=== PATIENT | male | born 1935 | race Caucasian/White ===

== ENCOUNTER 2019-07-26 10:18 | Outpatient (RCR) | payer MEDICARE, SELFPAY ==
[2019-05-01 09:08] LABS: INR 1.6; Prothrombin Time 16.4 Seconds (9.64-11.0)
[2019-05-17 09:53] LABS: INR 2.1; Prothrombin Time 22.3 Seconds (9.64-11.0)
[2019-06-26 10:05] LABS: Prothrombin Time 20.6 Seconds (9.64-11.0)
[2019-07-26 10:38] LABS: INR 2.2; Prothrombin Time 22.1 Seconds (9.64-11.0)
== END 2019-07-30 23:59 | disposition home or self-care (01) ==
LOC: CHSLAB 10:18
DX: I48.20 Chronic atrial fibrillation, unspecified (principal)
CPT/HCPCS: 36415; 85610

== ENCOUNTER 2019-10-25 09:34 | Outpatient (RCR) | payer MEDICARE, SELFPAY ==
[2019-09-20 09:50] LABS: INR 2.1; Prothrombin Time 21.5 Seconds (9.64-11.0)
[2019-10-25 09:53] LABS: INR 1.9; Prothrombin Time 19.7 Seconds (9.64-11.0)
== END 2019-12-19 23:59 | disposition home or self-care (01) ==
LOC: CHSLAB 09:34
PROVIDERS: PCP Internal Medicine; Visit Provider Internal Medicine
DX: I48.20 Chronic atrial fibrillation, unspecified (principal)
CPT/HCPCS: 36415; 85610

== ENCOUNTER 2020-02-28 09:48 | Outpatient (RCR) | payer MEDICARE, SELFPAY ==
[2019-12-27 09:48] LABS: INR 1.7; Prothrombin Time 17.5 Seconds (9.64-11.0)
[2020-01-05 10:10] LABS: INR 1.9; Prothrombin Time 19.5 Seconds (9.64-11.0)
[2020-02-09 09:38] LABS: INR 2.2; Prothrombin Time 21.9 Seconds (9.64-11.0)
[2020-02-28 10:13] LABS: INR 2.1; Prothrombin Time 21.6 Seconds (9.64-11.0)
== END 2020-03-26 23:59 | disposition home or self-care (01) ==
LOC: CHSLAB 09:48
PROVIDERS: PCP Internal Medicine; Visit Provider Internal Medicine
DX: I48.11 Longstanding persistent atrial fibrillation (principal)
CPT/HCPCS: 36415; 85610

== ENCOUNTER 2020-05-01 14:39 | Emergency (ER) | payer MEDICARE, SELFPAY ==
[2020-05-01] VITALS (10 sets, daily range): BP systolic 119–149; BP diastolic 70–88; PULSE 60–78; RESP 16–20; TEMP 36.4–37.1; O2SAT 97–98
--- NOTE | ~2020-05-01 | CT_ITS ---
EXAMINATION: CT brain wo con DATE: 05/01/2020 16:49 INDICATION: Dizziness. TECHNIQUE: Computed tomography (CT) of the head was performed without intravenous contrast. The mA wa s adjusted according to patient size. Iterative reconstruction technique was employed. The dose-lengt h product was 605.33 mGy-cm. COMPARISON: None FINDINGS: There is an old lacunar infarct in left caudate nucleus. There is no intracranial hemorrhag e, acute infarction, or abnormal intracranial mass lesion. The ventricles are normal in size. There i s mild mucosal thickening in the paranasal sinuses. There are likely changes of ocular lens replaceme nt surgeries. The mastoid air cells are normal. IMPRESSION: 1. 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 Reviewed, dictated and finalized at location A. S AND SERVICE CHANGE LEADER
--- NOTE | ~2020-05-01 | XR_ITS ---
EXAMINATION: XR chest 2V DATE: 05/01/2020 15:27 INDICATION: Shortness of breath. TECHNIQUE: Frontal and lateral views of the chest were obtained. COMPARISON: Chest 2 views 05/09/2017 FINDINGS: A calcified left lung nodule is consistent with old granulomatous disease. No pleural effus ion or pneumothorax. The heart size is normal. There is a left chest wall pacer with leads in the rig ht atrium and right ventricle. IMPRESSION: 1. No acute cardiopulmonary disease. Reviewed, dictated and finalized at location A. ER HELPER
--- NOTE | 2020-05-01 14:48 | ED.WEAKNESS ---
HPI - Weakness General Chief complaint: Dizziness Stated complaint: sent from doctor for lightheaded, weakness Time Seen by Provider: 05/01/20 14:55 Source: patient Mode of arrival: ambulatory Limitations: no limitations History of Present Illness HPI Narrative: 84-year-old man with a history of atrial fibrillation status post pacemaker and hypertension comes in the emergency department today at the behest of his doctor after he has had intermittent lightheaded and weakness for the last month. His doctor told him to come to the emergency department after he had a systolic blood pressure of 91 at home. He states that he has had some intermittent shortness of breath but no chest pain, nausea, vomiting, diarrhea, black stools or bloody stools, hematuria, dysuria, headaches or body aches, cough or cold symptoms. MD Complaint: generalized weakness Onset (ago): week(s) (4) Duration: intermittent Location: generalized Migration: none Severity: moderate Relieving factors: none Exacerbating factors: exertion Associated symptoms: shortness of breath Related Data Home Medications Medication Instructions Recorded Confirmed Centrum Silver 1 tablet PO ONCE 05/01/20 05/01/20 Co Q-10 200 mg PO ONCE 05/01/20 05/01/20 Osteo Bi-Flex 1 tablet PO ONCE 05/01/20 05/01/20 aspirin 325 mg PO ONCE 05/01/20 05/01/20 atorvastatin 20 mg PO ONCE 05/01/20 05/01/20 metoprolol tartrate 25 mg PO BID 05/01/20 05/01/20 warfarin 4 mg PO ONCE 05/01/20 05/01/20 Allergies Allergy/AdvReac Type Severity Reaction Status Date / Time clindamycin Allergy Rash Verified 05/01/20 15:17 Penicillins Allergy Hives Verified 05/01/20 15:17 Tetanus Vaccines and Toxoid Allergy Abdominal Verified 05/01/20 15:17 Pain Review of Systems Constitutional: Constitutional: Reports as per HPI, Denies chills, Denies fever(s) and Reports weakness Eyes: Eyes: Reports change in vision ( blurry vision) and Denies photophobia ENT: Denies dysphagia, Denies nasal congestion and Denies sore throat Cardiovascular: Cardiovascular: Denies chest pain and Denies radiating jaw, neck or arm pain Respiratory: Respiratory: Denies cough, Reports dyspnea and Denies wheezing Gastrointestinal: Gastrointestinal: Denies abdominal pain, Denies diarrhea, Denies nausea and Denies vomiting Genitourinary: Genitourinary: Denies hematuria and Denies dysuria Musculoskeletal: Musculoskeletal: Denies back pain, Denies arthralgias and Denies joint swelling Integumentary/Breasts: Skin/Breast: Denies pruritus, Denies erythema and Denies rash Neurologic: Reports as per HPI, Denies vertigo and Denies syncope Comments: lightheadedness Hematologic/Lymphatic: Hematologic/Lymphatic: Denies easy bleeding and Reports easy bruising ( on warfarin) Allergic/Immunologic: Allergic/Immunologic: Denies lip swelling and Denies tongue swelling PMFSH Past Medical History Medical History Atrial fibrillation Glaucoma Hyperlipidemia Hypertension Surgical History Surgical History Adrenal tumor History of hernia surgery History of hip surgery bilateral Hx of cataract surgery Social History Social History Smoking status: Former smoker Alcohol intake: never Substance use: never Living arrangements: with family Exam Const: General: healthy appearing, no acute distress and alert Orientation/consciousness: patient oriented x3 Limitations: no limitations HENMT: Head: normal to inspection Ears: external ears normal, TM's normal bilaterally and EAC's normal General nose exam: Normal nares present Face and sinus: normal facial exam Mouth: Yes moist mucous membranes Throat: posterior oropharynx normal Eyes: Conjunctivae: conjunctivae normal Pupils: Equal, round and reactive pupils present EOM: EOMs intact bilaterally Resp: E
--- NOTE | 2020-05-01 15:00 | ECG_ITS ---
Measurements Intervals [place] Rate: 60 P: 211 CA: 237 QRS: 53 QRSD: 85 T: 63 QT: 402 QTc: 402 Interpretive Statements ELECTRONIC ATRIAL PACEMAKER ATYPICAL ECG Electronically Signed On 05-01-2020 15:56:28 SAAS ARCHITECT by Jovan Fierro D.O.
[2020-05-01 15:18] LABS: Basophils Absolute Auto 0.04 K/mm3 (0.00-0.10); Basophils Percent Auto 0.5 % (0.0-1.0); Eosinophils Absolute Auto 0.27 K/mm3 (0.02-0.50); Eosinophils Percent Auto 3.3 % (1.0-6.0); Hematocrit 41.7 % (37.0-46.0); Immature Granulocyte Absolute 0.03 K/mm3 (0.00-0.00); Immature Granulocyte Percent A 0.4 % (0.0-0.0); Lymphocytes Absolute Auto 2.04 K/mm3 (1.10-4.50); Lymphocytes Percent Auto 25.1 % (18.0-42.0); Mean Corpuscular HGB Conc 33.6 g/dL (32.0-36.0); Mean Corpuscular Hemoglobin 33.3 pg (27.0-31.0); Mean Platelet Volume 10.7 fl (8.7-11.0); Monocytes Absolute Auto 1.07 K/mm3 (0.10-0.90); Monocytes Percent Auto 13.2 % (2.0-11.0); Neutrophils Absolute Auto 4.7 K/mm3 (1.7-7.2); Neutrophils Percent Auto 57.5 % (50.0-70.0); Platelet Count Result 150 K/mm3 (150-420); Red Blood Count 4.21 M/mm3 (4.70-6.10); Red Cell Distribution Width 12.9 % (11.6-14.4); White Blood Count 8.1 K/mm3 (4.8-10.8)
[2020-05-01 15:33] LABS: Partial Thromboplastin Time 28.9 SEC (23.90-30.70); Prothrombin Time 21.4 Seconds (9.50-12.10)
[2020-05-01 15:40] LABS: D Dimer 0.68 mg/L (0.19-0.50)
[2020-05-01 15:41] LABS: Lactic Acid Reflex 1.9 mmol/L (0.4-2.0)
[2020-05-01 15:46] LABS: Alanine Aminotransferase 30 U/L (16-63); Albumin Level 3.6 g/dL (3.4-5.0); Alkaline Phosphatase 64 U/L (46-116); Anion Gap 10 mmol/L (8-16); Aspartate Amino Transferase 22 U/L (15-37); Bilirubin,Total 0.5 mg/dL (0.00-1.00); Blood Urea Nitrogen 27 mg/dL (7-18); Calcium 8.2 mg/dL (8.5-10.1); Carbon Dioxide 24 mmol/L (21-32); Chloride 107 mmol/L (98-108); Estimated CRCL calculation 27 ml/min; Estimated Glomerular Filt Rate 36; Glucose 120 mg/dL (70-99); Osmolality Calculated 298 mOsm/kg (285-295); Potassium 4.5 mmol/L (3.5-5.1); Sodium 141 mmol/L (136-145); Total Protein 6.8 g/dL (6.4-8.2); Troponin I 11.2 ng/L (0.00-60.4)
[2020-05-01 15:53] LABS: CRP < 0.5 mg/dL (0.0-0.9)
[2020-05-01 15:55] LABS: Thyroid Stimulating Hormone Reflex 1.11 u/IU/mL (0.36-3.74)
--- NOTE | 2020-05-01 15:59 | PC.NURSE ---
Pt made aware of need for urine sample, pt provided urinal at this time and instructed to provide sample when available, pt verbalizes understanding.
[2020-05-01] MEDS: SODIUM CHLORIDE 0.9% IV 1,000 ML 999 ML IV CONT (17:18)
[2020-05-01 17:25] LABS: SARS-CoV-2 Ag Negative (Negative)
--- NOTE | 2020-05-01 18:29 | PC.NURSE ---
1814 states can't void, refuse 2nd liter of fluids, wants to go home... notified 1828 with patient, IV fluids d/c
== END 2020-05-01 18:45 | disposition home or self-care (01) ==
PROVIDERS: Emergency Provider Emergency Medicine; PCP Internal Medicine
DX: R53.1 Weakness (principal); E86.0 Dehydration; N17.9 Acute kidney failure, unspecified; Z20.828 Contact with and (suspected) exposure to other viral communicable diseases; I48.91 Unspecified atrial fibrillation; E78.5 Hyperlipidemia, unspecified; I10 Essential (primary) hypertension; Z87.891 Personal history of nicotine dependence
CPT/HCPCS: 36415; 70450; 71046; 80053; 83605; 84443; 84484; 85025; 85380; 85610; 85730; 86140; 87040; 87426; 93005; 96360; 99284; J7030

== ENCOUNTER 2020-05-02 09:14 | Outpatient (CLI) | payer MEDICARE, SELFPAY ==
[2020-05-02 09:26] LABS: Add Urine Microscopic? NO; Appearance Urine Clear (Clear); Bilirubin Urine Negative (Negative); Blood Urine Negative (Negative); Color Urine Yellow (Yellow); Glucose Urine UA Negative (Negative); Ketones Urine Negative (Negative); Leukocyte Esterase Ur Negative (Negative); Nitrate Urine Negative (Negative); Protein Urine Negative (Negative); Specific Grav Ur 1.015 (1.010-1.020); Urobilinogen Urine 0.2 mg/dL (0.2-1.0)
== END 2020-05-02 09:15 | disposition home or self-care (01) ==
PROVIDERS: PCP Internal Medicine; Visit Provider Emergency Medicine
DX: R53.1 Weakness (principal)
CPT/HCPCS: 81003; 87077; 87086

== ENCOUNTER 2020-05-28 09:16 | Outpatient (RCR) | payer MEDICARE, SELFPAY ==
[2020-03-28 10:23] LABS: INR 2.3; Prothrombin Time 23.5 Seconds (9.64-11.0)
[2020-04-24 10:55] LABS: INR 2.1; Prothrombin Time 22.1 Seconds (9.50-12.10)
[2020-05-28 09:49] LABS: INR 1.9; Prothrombin Time 20.6 Seconds (9.50-12.10)
== END 2020-06-26 23:59 | disposition home or self-care (01) ==
LOC: CHSLAB 09:16
PROVIDERS: PCP Internal Medicine; Visit Provider Internal Medicine
DX: I48.11 Longstanding persistent atrial fibrillation (principal)
CPT/HCPCS: 36415; 85610

== ENCOUNTER 2020-08-27 09:32 | Outpatient (RCR) | payer MEDICARE, SELFPAY ==
[2020-06-27 10:44] LABS: INR 1.9; Prothrombin Time 19.9 Seconds (9.50-12.10)
[2020-07-26 09:39] LABS: INR 2.3; Prothrombin Time 23.4 Seconds (9.50-12.10)
[2020-08-27 09:57] LABS: INR 1.9; Prothrombin Time 19.9 Seconds (9.50-12.10)
== END 2020-09-25 23:59 | disposition home or self-care (01) ==
LOC: CHSLAB 09:32
PROVIDERS: PCP Internal Medicine; Visit Provider Internal Medicine
DX: I48.11 Longstanding persistent atrial fibrillation (principal)
CPT/HCPCS: 36415; 85610

== ENCOUNTER 2020-12-25 09:55 | Outpatient (RCR) | payer MEDICARE, SELFPAY ==
[2020-09-26 10:13] LABS: INR 1.9; Prothrombin Time 19.2 Seconds (9.50-12.10)
[2020-10-24 10:16] LABS: INR 1.9; Prothrombin Time 19.5 Seconds (9.50-12.10)
[2020-11-27 10:01] LABS: INR 2.2; Prothrombin Time 22.3 Seconds (9.50-12.10)
[2020-12-25 10:39] LABS: Prothrombin Time 20.8 Seconds (9.50-12.10)
== END 2020-12-25 23:59 | disposition home or self-care (01) ==
LOC: CHSLAB 09:55
PROVIDERS: PCP Internal Medicine; Visit Provider Internal Medicine
DX: I48.11 Longstanding persistent atrial fibrillation (principal)
CPT/HCPCS: 36415; 85610

== ENCOUNTER 2021-03-26 09:53 | Outpatient (RCR) | payer MEDICARE, SELFPAY ==
[2021-01-23 10:01] LABS: Prothrombin Time 20.6 Seconds (9.50-12.10)
[2021-02-26 10:01] LABS: INR 1.7; Prothrombin Time 17.9 Seconds (9.50-12.10)
[2021-03-26 10:18] LABS: INR 2.5; Prothrombin Time 25.3 Seconds (9.50-12.10)
== END 2021-04-23 23:59 | disposition home or self-care (01) ==
LOC: CHSLAB 09:53
PROVIDERS: PCP Internal Medicine; Visit Provider Internal Medicine
DX: I48.11 Longstanding persistent atrial fibrillation (principal)
CPT/HCPCS: 36415; 85610

== ENCOUNTER 2021-07-23 10:50 | Outpatient (RCR) | payer MEDICARE, SELFPAY ==
[2021-04-29 10:34] LABS: INR 2.1; Prothrombin Time 21.4 Seconds (9.50-12.10)
[2021-05-28 10:51] LABS: INR 2.2; Prothrombin Time 22.4 Seconds (9.50-12.10)
[2021-06-25 10:38] LABS: INR 2.3; Prothrombin Time 23.4 Seconds (9.50-12.10)
[2021-07-23 11:14] LABS: INR 2.1; Prothrombin Time 21.4 Seconds (9.50-12.10)
== END 2021-07-28 23:59 | disposition home or self-care (01) ==
LOC: CHSLAB 10:50
PROVIDERS: PCP Internal Medicine
DX: I48.11 Longstanding persistent atrial fibrillation (principal)
CPT/HCPCS: 36415; 85610

== ENCOUNTER 2021-11-26 09:04 | Outpatient (RCR) | payer MEDICARE, SELFPAY ==
[2021-08-28 10:23] LABS: Prothrombin Time 20.4 Seconds (9.50-12.10)
[2021-09-24 10:09] LABS: INR 2.1; Prothrombin Time 21.3 Seconds (9.50-12.10)
[2021-10-22 09:11] LABS: INR 2.3; Prothrombin Time 23.5 Seconds (9.50-12.10)
[2021-11-26 09:38] LABS: INR 1.8; Prothrombin Time 18.8 Seconds (9.50-12.10)
== END 2021-11-26 23:59 | disposition home or self-care (01) ==
LOC: CHSLAB 09:04
PROVIDERS: PCP Internal Medicine
DX: I48.11 Longstanding persistent atrial fibrillation (principal)
CPT/HCPCS: 36415; 85610

== ENCOUNTER 2022-01-28 11:22 | Outpatient (RCR) | payer MEDICARE, SELFPAY ==
[2021-12-24 09:43] LABS: Prothrombin Time 20.7 Seconds (9.50-12.10)
[2022-01-28 11:58] LABS: INR 1.9; Prothrombin Time 19.3 Seconds (9.50-12.10)
== END 2022-03-24 23:59 | disposition home or self-care (01) ==
LOC: CHSLAB 11:22
PROVIDERS: PCP Family Medicine
DX: I48.11 Longstanding persistent atrial fibrillation (principal)
CPT/HCPCS: 36415; 85610

== ENCOUNTER 2022-02-25 10:36 | Outpatient (CLI) | payer MEDICARE, SELFPAY ==
[2022-02-25 11:03] LABS: Prothrombin Time 20.9 Seconds (9.50-12.10)
== END 2022-02-25 10:37 | disposition home or self-care (01) ==
LOC: CHSLAB 10:41
PROVIDERS: PCP Internal Medicine
DX: I48.11 Longstanding persistent atrial fibrillation (principal)
CPT/HCPCS: 36415; 85610

== ENCOUNTER 2022-05-27 09:25 | Outpatient (RCR) | payer MEDICARE, SELFPAY ==
[2022-03-25 10:12] LABS: INR 1.9; Prothrombin Time 19.6 Seconds (9.50-12.10)
[2022-04-29 12:10] LABS: INR 2.1; Prothrombin Time 21.8 Seconds (9.50-12.10)
[2022-05-27 09:52] LABS: INR 2.1; Prothrombin Time 21.6 Seconds (9.50-12.10)
== END 2022-06-23 23:59 | disposition home or self-care (01) ==
LOC: CHSLAB 09:25
PROVIDERS: PCP Internal Medicine; Visit Provider Internal Medicine
DX: Z51.81 Encounter for therapeutic drug level monitoring (principal); Z79.01 Long term (current) use of anticoagulants
CPT/HCPCS: 36415; 85610

== ENCOUNTER 2022-08-18 20:24 | Emergency (ER) | payer MEDICARE, SELFPAY ==
--- NOTE | ~2022-08-18 | XR_ITS ---
EXAMINATION: [id number] Exam Date/Time: 08/18/2022 20:50 CDT HISTORY: STATUS POST TRIP/FALL INTO ARM REST; ANTEROLATERAL LEFT RIBS Comparison: 05/01/2020. RESULT: Lines, tubes, and devices: Left chest pacer with intact leads. Lungs and pleura: Calcified left midlung granuloma. Senescent changes. Cardiomediastinal silhouette: Stable. Other: No acute osseous or upper abdominal finding. Scoliosis. IMPRESSION: No acute cardiopulmonary process. No acute osseous finding in the left ribs. Reviewed, dictated and finalized at location K.
--- NOTE | 2022-08-18 20:31 | ED.GENADULT ---
HPI - General Adult General Chief complaint: Extremity Injury, Upper Stated complaint: Fall Rib Injury Time Seen by Provider: 08/18/22 20:28 History of Present Illness HPI narrative: 86-year-old white male fell against her iron toni complains of left rib pain. This occurred just prior to admission. Complains of left rib pain without shortness of breath or chest pain it is worse when he takes a deep breath or coughs but does not really have a cough. Denies any other injury. Denies any nausea vomiting fever neck pain weakness paresthesias back pain abdominal pain or any other complaints. He rates his pain as a 9 or 10. Related Data Home Medications Medication Instructions Recorded Confirmed Centrum Silver 1 tablet PO ONCE 05/01/20 08/18/22 Co Q-10 200 mg PO ONCE 05/01/20 08/18/22 Osteo Bi-Flex 1 tablet PO ONCE 05/01/20 08/18/22 aspirin 325 mg PO ONCE 05/01/20 08/18/22 atorvastatin 20 mg tablet 20 mg PO ONCE 05/01/20 08/18/22 metoprolol tartrate 50 mg tablet 25 mg PO BID 05/01/20 08/18/22 warfarin 4 mg tablet 4 mg PO ONCE 05/01/20 08/18/22 latanoprost 0.005 % eye drops 1 drp LEFT EYE DAILY 08/18/22 08/18/22 Allergies Allergy/AdvReac Type Severity Reaction Status Date / Time clindamycin Allergy Rash Verified 05/01/20 15:17 Penicillins Allergy Hives Verified 05/01/20 15:17 Tetanus Vaccines and Toxoid Allergy Abdominal Verified 05/01/20 15:17 Pain Review of Systems Constitutional: Constitutional: Reports no additional constitutional complaints Eyes: Eyes: Reports no additional eye complaints ENT: Reports system reviewed and no additional complaints, except as documented Cardiovascular: Cardiovascular: Reports as per HPI and Reports chest pain Respiratory: Respiratory: Reports as per HPI, Reports no additional respiratory complaints, Denies cough, Denies dyspnea and Denies wheezing Gastrointestinal: Gastrointestinal: Reports no additional gastrointestinal complaints Genitourinary: Genitourinary: Reports no additional male genitourinary complaints Musculoskeletal: Musculoskeletal: Reports no additional musculoskeletal complaints Integumentary/Breasts: Skin/Breast: Reports system reviewed and no additional complaints, except as docu Neurologic: Reports system reviewed and no additional complaints, except as documented [facility] Past Medical History Medical History Atrial fibrillation Glaucoma Hyperlipidemia Hypertension Surgical History Surgical History Adrenal tumor History of hernia surgery History of hip surgery bilateral Hx of cataract surgery Social History Social History Smoking status: Former smoker Alcohol intake: never Substance use: never Living arrangements: with family Exam Narrative: White male With mild distress.? Head normocephalic, atraumatic.? Eyes conjunctiva pink sclera nonicteric.? Extraocular movements are intact.? Ears externally normal.? Oropharynx is clear with moist mucous membranes without exudates.? Neck is supple nontender no lymphadenopathy. ?Back is nontender.? Lungs are clear.? Heart is regular rate and rhythm without murmurs gallops or rubs.? Chest wall is tender in the anterior lateral chest wall without crepitation. There is no chest pain with sternal Anterior to posterior pressure and lateral pressure. Abdomen is soft and nontender no hepatosplenomegaly or masses no CVA tenderness no abdominal bruits. ?Extremities no cyanosis clubbing or edema. ?Skin is warm and dry without rashes or lesions.? Neurological patient is alert and oriented x4.? Motor and sensory grossly intact.? Gait is normal. Course Vital Signs Vital signs: Vital Signs Temperature 36.7 C 08/18/22 20:34 Pulse Rate 60 08/18/22 20:34 Respiratory Rate 18 08/18/22 20:34 Blood Pressure 167/81 H 08/18/22 20:34
[2022-08-18 20:34] VITALS: BP 167/81; PULSE 60; RESP 18; TEMP 36.7; O2SAT 98
[2022-08-18] MEDS: HYDROcodone/acetaminophen (*CRX) 5-325 MG TABLET 1 TAB PO (20:52)
[2022-08-18 22:02] VITALS: BP 133/84; PULSE 80; RESP 18; TEMP 36.6; O2SAT 97
== END 2022-08-18 22:04 | disposition home or self-care (01) ==
PROVIDERS: Emergency Provider Emergency Medicine; PCP Internal Medicine
DX: S20.219A Contusion of unspecified front wall of thorax, initial encounter (principal); Z79.82 Long term (current) use of aspirin; Z79.01 Long term (current) use of anticoagulants; I48.91 Unspecified atrial fibrillation; E78.5 Hyperlipidemia, unspecified; I10 Essential (primary) hypertension; Z87.891 Personal history of nicotine dependence; W18.39XA Other fall on same level, initial encounter
CPT/HCPCS: 71101; 99283; A9270

== ENCOUNTER 2022-09-25 09:41 | Outpatient (RCR) | payer MEDICARE, SELFPAY ==
[2022-06-30 10:02] LABS: INR 2.4; Prothrombin Time 24.3 Seconds (9.50-12.10)
[2022-07-28 09:50] LABS: INR 1.9; Prothrombin Time 19.6 Seconds (9.50-12.10)
[2022-08-26 09:48] LABS: INR 1.8; Prothrombin Time 19.1 Seconds (9.50-12.10)
[2022-09-25 10:15] LABS: Prothrombin Time 20.9 Seconds (9.50-12.10)
== END 2022-09-28 23:59 | disposition home or self-care (01) ==
LOC: CHSLAB 09:41
PROVIDERS: PCP Internal Medicine; Visit Provider Internal Medicine
DX: Z51.81 Encounter for therapeutic drug level monitoring (principal); Z79.01 Long term (current) use of anticoagulants
CPT/HCPCS: 36415; 85610

== ENCOUNTER 2023-01-14 09:33 | Outpatient (RCR) | payer MEDICARE, SELFPAY ==
[2022-10-28 10:01] LABS: INR 1.8; Prothrombin Time 19.1 Seconds (9.50-12.10)
[2022-11-25 10:17] LABS: INR 1.6; Prothrombin Time 16.9 Seconds (9.50-12.10)
[2022-12-02 09:31] LABS: INR 1.7; Prothrombin Time 18.2 Seconds (9.50-12.10)
[2022-12-24 10:33] LABS: INR 1.7
[2022-12-31 09:47] LABS: INR 1.6; Prothrombin Time 16.7 Seconds (9.50-12.10)
[2023-01-14 09:55] LABS: Prothrombin Time 30.3 Seconds (9.50-12.10)
== END 2023-01-26 23:59 | disposition home or self-care (01) ==
LOC: CHSLAB 09:33
PROVIDERS: PCP Internal Medicine; Visit Provider Internal Medicine
DX: Z51.81 Encounter for therapeutic drug level monitoring (principal); Z79.01 Long term (current) use of anticoagulants
CPT/HCPCS: 36415; 85610

== ENCOUNTER 2023-04-27 09:16 | Outpatient (RCR) | payer MEDICARE, SELFPAY ==
[2023-01-27 10:19] LABS: INR 2.5; Prothrombin Time 25.6 Seconds (9.50-12.10)
[2023-02-24 10:23] LABS: INR 3.3; Prothrombin Time 33.1 Seconds (9.50-12.10)
[2023-03-23 10:41] LABS: INR 3.5; Prothrombin Time 34.9 Seconds (9.50-12.10)
[2023-03-30 09:54] LABS: INR 3.6; Prothrombin Time 35.6 Seconds (9.50-12.10)
[2023-04-27 09:43] LABS: INR 2.4; Prothrombin Time 25.1 Seconds (9.50-12.10)
== END 2023-04-27 23:59 | disposition home or self-care (01) ==
LOC: CHSLAB 09:16
PROVIDERS: PCP Internal Medicine; Visit Provider Internal Medicine
DX: Z51.81 Encounter for therapeutic drug level monitoring (principal); Z79.01 Long term (current) use of anticoagulants
CPT/HCPCS: 36415; 85610

== ENCOUNTER 2023-08-10 09:27 | Outpatient (RCR) | payer MEDICARE, SELFPAY ==
[2023-05-26 09:54] LABS: INR 2.2; Prothrombin Time 23.2 Seconds (9.50-12.10)
[2023-07-28 09:54] LABS: INR 3.4; Prothrombin Time 33.9 Seconds (9.50-12.10)
[2023-08-10 10:03] LABS: Prothrombin Time 30.4 Seconds (9.50-12.10)
== END 2023-08-24 23:59 | disposition home or self-care (01) ==
LOC: CHSLAB 09:27
PROVIDERS: PCP Internal Medicine; Visit Provider Internal Medicine
DX: I48.11 Longstanding persistent atrial fibrillation (principal)
CPT/HCPCS: 36415; 85610

== ENCOUNTER 2023-08-24 07:59 | Outpatient (RCR) | payer MEDICARE, SELFPAY ==
--- NOTE | 2023-08-24 08:27 | OPREHPOC ---
Outpatient Therapy Plan of Care This is a Multidisciplinary Plan of Care that may contain components documented by all disciplines (PT, OT, and ST.) PT Problem 1 PT Problem #1 Knowledge Deficit PT Goal 1 Goal 1. independent and compliant with HEP Target Visit 4 PT Problem 2 PT Problem #2 Pain PT Goal 1 Goal 1. decrease pain to 2/10 or less in the bilateral lower back/buttocks Target Visit 9 PT Problem 3 PT Problem #3 Impaired Range of Motion PT Goal 1 Goal 1. improve lumbar active side bending to 40 degrees Target Visit 9 PT Problem 4 PT Problem #4 Impaired Flexibility PT Goal 1 Goal 1. improve bilateral hamstrings flexibility to 20 degrees or less from 0 Target Visit 9 PT Problem 5 PT Problem #5 Impaired Functional Mobil PT Goal 1 Goal 1. LEFS to display less than 30% functional deficits 2. patient to tolerate standing for 1 hour or more outside of therapy 3. patient to perform exercises for 15 minutes without rest in skilled PT 4. patient to display improved posture of the upper and lower trunk to prevent worsening symptoms in the back in the future Target Visit 9
--- NOTE | 2023-08-24 08:27 | PTOPEVAL1 ---
Assessment and note entered by JT File, PT Evaluation Information Assessment Status Evaluation Diagnosis bilateral hip pain Onset 08/18/23 Subjective Information patient reports he is coming to therapy for pain in the bilateral hips. he reports sometimes it is both hips hurting, and other times one or the other will hurt. he reports the MD thinks he has nerves acting up in his back/buttock. he reports he has pain in the buttock mostly. he reports he has had both hips replaced back in 2010. he reports he has increased pain with walking. he reports he does not get any groin pain. he reports it does feel different than the pain he had prior to his hip replacements. he reports he has had xrays of the lower back. he reports he no new medications for the lower back. he reports he does not get any numbness/tingling/burning down the legs. Reported Pain Level Pain Score 3: Self Report Assessment PT Clinical Summary mr. nichols is a pleasant 87 yo man who presents to skilled PT services for evaluation and treatment of bilateral hip pain. he presents today with bilateral buttock pain, deficits in standing activities, and no groin pain. he like suffers from lumbar spondylosis. however, he does have a grinding/clunking in the R hip that may need further evaluation. today he displays core weakness, poor posture, tight hip muscles, decreased lumbar rom, and weakness in the proximal LE's. continued skilled PT is indicated to improve his objective/functional deficits and improve his quality of life/functional activity performance. Plan of Care Interventions Hot Pack/Cold Pack,Manual Therapy,Neuro Re- education,Patient/Caregiver Educati,Therapeutic Activities,Therapeutic Exercise PT Services Indicated Yes Treatment Frequency and 3x weekly for 9 visits Duration These treatments will address the objective and functional deficits as defined above. The patient will be advanced safely and appropriately in order for the patient to progress towards his/her prior level of function. Additional exercises will be introduced and as well as a comprehensive home exercise program upon discharge, if needed, ?to ensure carryover of functional gains achieved in the clinic. This treatment plan has been reviewed and agreement upon by the patient.
== END 2023-11-22 23:59 | disposition home or self-care (01) ==
LOC: CHSPT 07:59
PROVIDERS: Visit Provider Internal Medicine
DX: M25.551 Pain in right hip (principal); M25.552 Pain in left hip
CPT/HCPCS: 97110; 97161

== ENCOUNTER 2023-11-24 09:27 | Outpatient (RCR) | payer MEDICARE, SELFPAY ==
[2023-09-15 10:08] LABS: INR 2.4; Prothrombin Time 24.6 Seconds (9.50-12.1)
[2023-10-27 09:33] LABS: INR 2.7; Prothrombin Time 27.2 Seconds (9.50-12.1)
[2023-11-24 09:51] LABS: INR 2.6; Prothrombin Time 26.9 Seconds (9.50-12.1)
== END 2023-12-14 23:59 | disposition home or self-care (01) ==
LOC: CHSLAB 09:27
PROVIDERS: PCP Internal Medicine; Visit Provider Internal Medicine
DX: I48.11 Longstanding persistent atrial fibrillation (principal)
CPT/HCPCS: 36415; 85610

== ENCOUNTER 2024-02-16 10:27 | Outpatient (RCR) | payer MEDICARE, SELFPAY ==
[2023-12-29 10:42] LABS: INR 2.8; Prothrombin Time 28.2 Seconds (9.50-12.1)
[2024-01-27 14:53] LABS: INR 3.5; Prothrombin Time 35.1 Seconds (9.50-12.1)
[2024-02-11 10:27] LABS: INR 3.6; Prothrombin Time 35.6 Seconds (9.50-12.1)
[2024-02-16 11:02] LABS: INR 2.6; Prothrombin Time 26.6 Seconds (9.50-12.1)
== END 2024-03-28 23:59 | disposition home or self-care (01) ==
LOC: CHSLAB 10:27
PROVIDERS: PCP Internal Medicine; Visit Provider Internal Medicine
DX: Z51.81 Encounter for therapeutic drug level monitoring (principal); I48.11 Longstanding persistent atrial fibrillation
CPT/HCPCS: 36415; 85610

== ENCOUNTER 2024-09-06 10:07 | Outpatient (RCR) | payer MEDICARE, SELFPAY ==
[2024-06-28 10:19] LABS: Prothrombin Time 29.9 Seconds (9.50-12.1)
[2024-07-26 10:09] LABS: INR 4.1; Prothrombin Time 39.1 Seconds (9.50-12.1)
[2024-08-07 10:42] LABS: INR 3.1; Prothrombin Time 31.1 Seconds (9.50-12.1)
[2024-08-23 10:46] LABS: INR 3.9; Prothrombin Time 37.8 Seconds (9.50-12.1)
[2024-09-06 10:35] LABS: Prothrombin Time 29.5 Seconds (9.50-12.1)
== END 2024-09-26 23:59 | disposition home or self-care (01) ==
LOC: CHSLAB 10:07
PROVIDERS: PCP Internal Medicine; Visit Provider Internal Medicine
DX: I48.11 Longstanding persistent atrial fibrillation (principal)
CPT/HCPCS: 36415; 85610

== ENCOUNTER 2024-09-12 17:03 | Emergency (ER) | payer MEDICARE, SELFPAY ==
[2024-09-12 17:08] VITALS: BP 186/87; PULSE 60; RESP 18; TEMP 36.6; O2SAT 99
--- OUTSIDE RECORDS SUMMARY | 2024-09-12 17:09 | XMS_ITS | Encounter Summary ---
Author Organization [facility] Address [address] [place] [address] Phone Care Team Providers Care Dog Day Care Attendant Name Role Phone Blade Schaefer MD Primary Care Provider [phone] Amor Graham MD Unavailable [phone] Catia Martinez Unavailable [phone] Liban Mary MD Unavailable [phone] Reason for Visit * Reason Onset Date Comments Medication Refill Medication Refill 12/15/2019 Encounter Details Date Type Department Care Team (Late st Contact Info) Description 12/11/2019 Refill [facility] [address] [place] [address] Vicente Castaneda, RIGOBERTO Medication Refill; Medication Refill Social History Tobacco Use Types Packs/Day Years Used Date Smoking Tobacco: Never Smokeless Tobacco: Never Alcohol Use Standard Drinks/Week Comments Yes 5 (1 standard drink = 0.6 oz pur e alcohol) rare PHQ-2 Answer Date Recorded PHQ-2 Score 0 05/08/2019 Sex and Gender Information Value Date Recorded Sex Assigned at Male 01/11/2023 11:12 AM CDT Legal Sex Male 7:59 PM CDT Gender Identity Male 01/11/2023 11:12 AM CDT Sexual Orientation Not on file COVID-19 Exposure Response Date Recorded In the last month, have you been in contact with someone who was confirmed or suspected to have Coronavirus / COVID-19? No / Unsure 11/15/2019 8:53 AM CDT documented as of this encounter Miscellaneous Notes * Telephone Encounter - Blade Schaefer MD - 12/15/2019 7:57 AM CDT Refill request approved. * Telephone Encounter - Yany Sanchez - 12/14/2019 4:05 PM CDT JULIO CESAR 11/15/2019 CMP,CBC, FLP 11/15/2019 Quantity greater than originally prescribed, routing to PCP for approval. documented in this encounter Plan of Treatment Upcoming Encounters Date Type Department Care Team (Late st Contact Info) Description 12/28/2024 11:00 AM CDT Office Visit [facility] - [facility] - [place] [address] [place] [place] [address] Blade Schaefer MD [address] [place] [address] documented as of this encounter Visit Diagnoses Not on filedocumented in this encounter Additional Health Concerns Assessment Noted Time PHQ-9 Depression Total Score: 0 11/15/19 20 9:00 AM CDT documented as of this encounter Care Teams Dog Day Care Attendant Relationship Specialty Start Date End Date Blade Schaefer MD [address] [place] [address] PCP - General Internal Medicine 04/16/17 Amor Graham MD [address] [facility] [address] Consulting Physician Cardiovascular Disease - Cardiology 04/16/17 Catia Martinez PAC [address] [facility] [place] [address] Physician Air Control/Anti Air Warfare Officer Orthopaedic Surgery 12/09/20 Liban Mary MD [address] [place] [address] Consulting Physician Ophthalmology 06/11/21 12/26/23 Mary Prieto MD Consulting Physician Ophthalmology 05/06/17 Oxana Daniel OD Consulting Physician Optometry 12/27/23 documented as of this encounter
--- OUTSIDE RECORDS SUMMARY | 2024-09-12 17:09 | XMS_ITS | Encounter Summary ---
Author Organization [facility] Address [address] [place] [address] Phone Care Team Providers Care Helium Arc Welder Name Role Phone Blade Schaefer MD Primary Care Provider [phone] Amor Graham MD Unavailable [phone] Catia Martinez [facility] Unavailable [phone] Liban Mary MD Unavailable [phone] Reason for Visit * Reason Comments Medication Refill Encounter Details Date Type Department Care Team (Late st Contact Info) Description 06/18/2023 Refill [facility] - Primary [facility] - [facility] [address] [place] [address] Blade Schaefer MD [address] [place] [address] Medication Refill Social History Tobacco Use Types Packs/Day Years Used Date Smoking Tobacco: Never Smokeless Tobacco: Never Alcohol Use Standard Drinks/Week Comments Yes 5 (1 standard drink = 0.6 oz pur e alcohol) rare PHQ-2 Answer Date Recorded Total Score - Questions 1-9 0 05/31 Sex and Gender Information Value Date Recorded Sex Assigned at Male 01/11/2023 11:12 AM CDT Legal Sex Male 7:59 PM CDT Gender Identity Male 01/11/2023 11:12 AM CDT Sexual Orientation Not on file documented as of this encounter Miscellaneous Notes * Telephone Encounter - Diogo Galdamez, RN - 06/18/2023 8:08 AM CST The original prescription was reordered on 04/01/2023. dose changed ESTRA TEACHER documented in this encounter Plan of Treatment Upcoming Encounters Date Type Department Care Team (Late st Contact Info) Description 12/28/2024 11:00 AM CDT Office Visit [facility] - Primary [facility] - [facility] [address] [place] [address] Blade Schaefer MD [address] [place] [address] documented as of this encounter Visit Diagnoses Diagnosis Longstanding persistent atrial fibrillation (HCC) documented in this encounter Additional Health Concerns Assessment Noted Time PHQ-9 Depression Total Score: 0 06/16/19 24 9:52 AM ORCHESTRA TEACHER documented as of this encounter Care Teams Helium Arc Welder Relationship Specialty Start Date End Date Blade Schaefer MD [address] [place] [address] PCP - General Internal Medicine 04/16/17 Amor Graham MD [address] [facility] [place] [address] Consulting Physician Cardiovascular Disease - Cardiology 04/16/17 Catia Martinez PAC [address] [facility] [place] [address] Physician Potato Seed Cutter Orthopaedic Surgery 12/09/20 Liban Mary MD [address] [place] [address] Consulting Physician Ophthalmology 06/11/21 12/26/23 Mary Prieto MD Consulting Physician Ophthalmology 05/06/17 Oxana Daniel OD Consulting Physician Optometry 12/27/23 documented as of this encounter
--- OUTSIDE RECORDS SUMMARY | 2024-09-12 17:09 | XMS_ITS | Encounter Summary ---
Author Organization [facility] Address [address] [place] [address] Phone Care Team Providers Care Yarn Carrier Name Role Phone Blade Schaefer MD Primary Care Provider [phone] Amor Graham MD Unavailable [phone] Catia Martinez PAC Unavailable [phone] Liban Mary MD Unavailable [phone] Reason for Visit * Reason Comments Medication Refill Encounter Details Date Type Department Care Team (Late st Contact Info) Description 12/30/2022 Refill [facility] - Primary Care - [place] [address] [place] [address] Blade Schaefer MD [address] [place] [address] Medication Refill Social History Tobacco [...] Exposure Response Date Recorded In the last 10 days, have yo u been in contact with someone who was confirmed or suspected to have Coronavirus/COVID-19? No / Unsure 12/14/2022 10:17 AM CDT documented as of this encounter Miscellaneous Notes * Telephone Encounter - Blade Schaefer MD - 12/30/2022 2:39 PM CDT Warfarin refilled. Atorvastatin is not due for refill until the end of January. * Telephone Encounter - Nadine Dick RN - 12/30/2022 2:21 PM CDT Medication failed the protocol, provider to review and approve the medication order if appropriate. Requested Prescriptions Pending Prescriptions Disp Refills atorvastatin (LIPITOR) 20 MG Tablet [Pharmacy Med Name: ATORVASTATIN 20 MG TABLET] 90 Tablet 1 Sig: TAKE 1 TABLET BY MOUTH EVERY DAY Hmg CoA Reductase Inhibitors Protocol Passed - 12/30/2022 2:02 PM Passed - Visit with relevant provider in past 12 months or upcoming 90 days Recent Visits Date Type Provider Dept 12/14/22 Office Visit Blade Schaefer MD [facility] 06/15/22 Office Visit Blade Schaefer MD [facility] Showing recent visits within past 365 days and meeting all other requirements Future Appointments No visits were found meeting these conditions. Showing future appointments within next 90 days and meeting all other requirements Passed - Lipid panel in past 12 months LDL Date Value Ref Range Status 12/14/2022 86 5 - 130 mg/dL Final HDL CHOLESTEROL Date Value Ref Range Status 12/14/2022 41.4 >40 mg/dL Final CHOLESTEROL Date Value Ref Range Status 12/14/2022 148 <200 mg/dL Final TRIGLYCERIDES Date Value Ref Range Status 12/14/2022 105 <150 mg/dL Final VLDL Date Value Ref Range Status 12/14/2022 21 5 - 55 mg/dL Final CHOL/HDL RATIO Date Value Ref Range Status 12/14/2022 3.6 0.0 - 4.4 Final NON-HDL CHOLESTEROL Date Value Ref Range Status 12/14/2022 106.6 <130 mg/dL Final Passed - CMP in past 12 months SODIUM Date Value Ref Range Status 12/14/2022 140 136 - 144 mmol/L Final POTASSIUM Date Value Ref Range Status 12/14/2022 4.6 3.5 - 5.1 mmol/L Final CHLORIDE Date Value Ref Range Status 12/14/2022 105 100 - 110 mmol/L Final CO2, VENOUS Date Value Ref Range Status 12/14/2022 25 22 - 32 mmol/L Final ANION GAP Date Value Ref Range Status 12/14/2022 14.6 8.0 - 20.0 mmol/L Final GLUCOSE Date Value Ref Range Status 12/14/2022 89 70 - 99 mg/dL Final BUN Date Value Ref Range Status 12/14/2022 21 8 - 23 mg/dL Final CREATININE - POCT Date Value Ref Range Status 05/05/2021 1.3 0.6 - 1.3 mg/dL Final CREATININE, BLOOD Date Value Ref Range Status 12/14/2022 1.18 0.80 - 1.30 mg/dL Final BUN/CREATININE RATIO Date Value Ref Range Status 12/14/2022 18 12 - 20 ratio Final TOTAL PROTEIN Date Value Ref Range Status 06/15/2022 6.8 6.0 - 8.3 g/dL Final ALBUMIN Date Value Ref Range Status 06/15/2022 4.3 3.5 - 5.2 g/dL Final Comment: The colormetric methods used for the determination of Albumin may lead to falsely elevated test results in patients suffering from renal failure or insufficiency due to interference with other proteins. A/G RATIO Date Value Ref Range Status 06/15/2022 1.7 1.0 - 2.0 Final CALCIUM Date Value Ref Range Status 12/14/2022 8.9 8.7 - 10.5 mg/dL Final T BILI Date Value Ref Range Status 06/15/2022 0.6 <=1.2 mg/dL Final SGOT (AST) Date Value Ref Range Status 06/15/2022 25 <=40 U/L Final SGPT (ALT) Date Value Ref Range Status 06/15/2022 24 <=41 U/L Final ALKALINE PHOSPHATASE Date Value Ref Range Status 06/15/2022 77 40 - 130 U/L Final GFR, EST. NONAFRICAN Date Value Ref Range Status 12/14/2022 58 (L) >=60 Final GFR, EST. Date Value Ref Range Status 12/14/2022 >60 >=60 Final GFR, ESTIMATED Date Value Ref Range Status 12/14/2022 59 (L) >=60 Final Comment: Creatinine Clearance is the preferred criteria for selecting drug dose adjustments in renally impaired patients. The GFR is provided as additional pertinent clinical information. GFR is reported in mL/min/1.73 sq m. Calculation based on the Chronic Kidney Disease Epidemiology Collaboration (CKD- EPI) equation refitwithout adjustment for race. IS THE PATIENT REQUIRED TO BE FASTING? Date Value Ref Range Status 06/15/2022 No Final warfarin (COUMADIN) 4 MG Tablet [Pharmacy Med Name: WARFARIN SODIUM 4 MG TABLET] 90 Tablet 1 Sig: TAKE 1 TABLET BY MOUTH EVERY DAY Warfarin Protocol Failed - 12/30/2022 2:02 PM Failed - CBC on record in the past year WBC Date Value Ref Range Status 10/27/2016 8.11 4.00 - 12.00 10(3)/mcL Final RBC Date Value Ref Range Status 10/27/2016 4.49 4.40 - 5.80 10(6)/mcL Final HEMATOCRIT (HCT) Date Value Ref Range Status 10/27/2016 43.9 38.0 - 50.0 % Final HEMOGLOBIN (HGB) Date Value Ref Range Status 10/27/2016 15.1 13.0 - 16.5 g/dL Final MCV Date Value Ref Range Status 10/27/2016 97.8 (H) 82.0 - 96.0 fL Final MCH Date Value Ref Range Status 10/27/2016 33.6 (H) 26.0 - 32.0 pg Final MCHC Date Value Ref Range Status 10/27/2016 34.4 31.0 - 36.0 g/dL Final Failed - Patient does not have referral for nurse managed warfarin, please send to provider for approval Passed - Visit with relevant provider in past 12 months or upcoming 90 days Recent Visits Date Type Provider Dept 12/14/22 Office Visit Blade Schaefer MD [facility] 06/15/22 Office Visit Blade Schaefer MD [facility] Showing recent visits within past 365 days and meeting all other requirements Future Appointments No visits were found meeting these conditions. Showing future appointments within next 90 days and meeting all other requirements Passed - Display Most Recent Dose (if blank, no data is available, check Anticoagulation activity) Passed - INR on record in the past 6 weeks INR Date Value Ref Range Status 12/24/2022 1.70 (A) 0.9 - 1.1 Final documented in this encounter Plan of Treatment Upcoming Encounters Date Type Department Care Team (Late st Contact Info) Description 12/28/2024 11:00 AM CDT Office Visit [facility] - Primary Care - [place] [address] [place] [address] Blade Schaefer MD [address] [place] [address] documented as of this encounter Visit Diagnoses Not on filedocumented in this encounter Additional Health Concerns Assessment Noted Time PHQ-9 Depression Total Score: 0 06/11/19 21 8:00 AM ORTHOPEDIC CODER documented as of this encounter Care Teams Yarn Carrier Relationship Specialty Start Date End Date Blade Schaefer MD [address] [place] [address] PCP - General Internal Medicine 04/16/17 Amor Graham MD [address] [facility] [place] [address] Consulting Physician Cardiovascular Disease - Cardiology 04/16/17 Catia Martinez PAC [address] [facility] [place] [address] Physician Police Commanding Officer Orthopaedic Surgery 12/09/20 Liban Mary MD [address] [place] [address] Consulting Physician Ophthalmology 06/11/21 12/26/23 Mary Prieto MD Consulting Physician Ophthalmology 05/06/17 Oxana Daniel OD Consulting Physician Optometry 12/27/23 documented as of this encounter
--- OUTSIDE RECORDS SUMMARY | 2024-09-12 17:10 | XMS_ITS | Referral Summary ---
Author Organization [facility] Address [address] [place] [address] Care Team Providers Care Scout Leaser Name Role Phone Blade Schaefer MD Primary Care Provider + Encounters Date Type Department Care Team Description 09/05/2024 8:15 AM CDT Ancillary Procedure Secretary Multiple Cut Off Saw Operator [address] [place] [phone] SSS (sick sinus syndrome) (HCC); Atrial fibrillation, unspecified type (HCC); Presence of cardiac pacemaker from Last 3 Months Allergies Active Allergy Reactions Criticality Noted Date Comments Clindamycin Hives Medium 12/28/2016 Penicillins Tetanus Vaccines And Toxoid Medications omega-3 fatty acids-fish oil 340-1,000 mg capsule 0 0 Active lw-wnx-qbjbx acid-lutein (CENTRUM SILVER) 400-250 mcg tablet,chewabl e 0 0 Active aspirin 325 mg tablet take 1 tablet (325MG) by ORAL route every day 0 0 Active warfarin (COUMADIN) 4 mg tablet Take 1 tablet (4 mg total) by mouth daily Active coenzyme Q10 200 mg capsule Take 1 capsule (200 mg total) by mouth daily Active folic acid/multivit- min/lutein (CENTRUM SILVER ORAL) Take 1 tablet by mouth daily Active glucosamine-ch ondroitin 250-200 mg tablet daily Active latanoprost (XALATAN) 0.005 % ophthalmic solution 1 drop nightly Active atorvastatin (LIPITOR) 20 mg tablet Take 1 tablet (20 mg total) by mouth daily 4 Active lisinopriL (PRINIVIL,ZEST RIL) 10 mg tablet Take 1 tablet (10 mg total) by mouth daily Active metoprolol tartrate (LOPRESSOR) 50 mg immediate release tablet TAKE 1/2 TABLET BY MOUTH IN THE MORNING, THEN TAKE ONE TABLET BY MOUTH IN THE EVENING 135 tablet 3 5 Active metoprolol tartrate (LOPRESSOR) 50 mg immediate release tablet TAKE 1/2 TABLET BY MOUTH IN THE MORNING, THEN TAKE ONE TABLET BY MOUTH IN THE EVENING 135 tablet 3 4 09/08/19 25 Discontinued Active Problems Problem Noted Date Diagnosed Date Trochanteric bursitis of both hips 10/17/2020 Weakness 12/17/2016 Atrial fibrillation 12/17/2016 Presence of cardiac pacemaker 12/17/2016 Social History Tobacco Use Types Packs/Day Years Used Date Smoking Tobacco: Never Smokeless Tobacco: Never Tobacco Cessation:Counseling Given: Not Answered Alcohol Use Standard Drinks/Week Comments Yes 0 (1 standard drink = 0.6 oz pur e alcohol) Sex and Gender Information Value Date Recorded Sex Assigned at Not on file Legal Sex Male 12:36 AM COMPUTING TUTOR Gender Identity Not on file Sexual Orientation Not on file Last Filed Vital Signs Vital Sign Reading Time Taken Comments Blood Pressure 152/68 06/08/2024 10:46 AM COMPUTING TUTOR Pulse 70 06/08/2024 10:46 AM COMPUTING TUTOR Temperature 36.7 C (98.1 F) 04/17/2021 11:01 AM COMPUTING TUTOR Respiratory Rate 18 06/08/2024 10:46 AM COMPUTING TUTOR Oxygen Saturation 95% 04/30/2022 11:47 AM COMPUTING TUTOR Inhaled Oxygen Concentration - - Weight 77.1 kg (170 lb) 06/08/2024 10:46 AM COMPUTING TUTOR Height 180.3 cm (5' 11 ) 06/08/2024 10:46 AM COMPUTING TUTOR Body Mass Index 23.71 06/08/2024 10:46 AM COMPUTING TUTOR Plan of Treatment Not on file Procedures Procedure Name Priority Date/Time Associated Diagnosis Comments DEVICE CHECK - REMOTE Routine 09/05/2024 6:40 AM CDT SSS (sick sinus syndrome) (HCC) Atrial fibrillation, unspecified type (HCC) Presence of cardiac pacemaker from Last 3 Months Results * DEVICE CHECK - REMOTE (09/05/2024 6:40 AM CDT) Anatomical Region Laterality Modality Other Narrative 09/07/2024 3:07 PM CDT Images from the original result were not included. 09/05/2024 [place] quarterly remote device check NOTE The following shows snippets from the complete quarterly report. The complete report in its entirety is attached to this Result Text in Valve Liner Rubber. Presenting EGM Last in-office check 06/08/2024 6 month f/u office visit 12/14/2024 DC PPM, implanted 08/25/2016 Battery longevity = 2.3 yrs AT/AF burden < 1% Many AMS event episodes reported this monitoring quarter (18 with EGMs) longest 24 seconds- Warfarin Ap 97% RVp 25% Device Nurse Review and Recommendations below Reviewed By Karin Reyes RN BSN Review and Recommendations below (please forward an in-basket message to your MA if check requires attention)ATTESTATION I have reviewed the device interrogation report associated with this encounter in detail. I agree with the documentation recorded/scanned into the electronic medical record. Recommendations: Continue current device follow-up. Bibiana Graham MD Bibiana Graham MD [facility] [place] OCEDURES Final Result from Last 3 Months Insurance [facility] MEDICARE ADVANTAGE [facility] MEDIC[facility] ADVANTAGE [facility] MEDIC[facility] ADVANTAGE Care Teams Scout Leaser Relationship Specialty Start Date End Date Blade Schaefer MD PCP - General 06/19/19
--- OUTSIDE RECORDS SUMMARY | 2024-09-12 17:10 | XMS_ITS | Encounter Summary ---
Author Organization [facility] Address [address] [place] [address] Phone Care Team Providers Care Teacher Associate Name Role Phone Blade Schaefer MD Primary Care Provider [phone] Amor Graham MD Unavailable Catia Martinez PAC Unavailable [phone] Liban Mary MD Unavailable [phone] Reason for Visit * Reason Comments Medication Refill Encounter Details Date Type Department Care Team (Late st Contact Info) Description 06/11/2020 [facility] [address] [place] [address] Blade Schaefer MD [address] [place] [address] Medication Refill Social History Tobacco [...] have Coronavirus / COVID-19? No / Unsure 06/11/2020 8:37 AM VAULT CUSTODIAN documented as of this encounter Miscellaneous Notes * Telephone Encounter - Ramandeep Hermosillo RN - 06/11/2020 10:33 AM VAULT CUSTODIAN Medication approved and signed per standing order protocol. T CUSTODIAN documented in this encounter Plan of Treatment Upcoming Encounters Date Type Department Care Team (Late st Contact Info) Description 12/28/2024 11:00 AM CDT Office Visit [facility] - Primary Care - [place] [address] [place] [address] Blade Schaefer MD [address] [place] [address] documented as of this encounter Visit Diagnoses Not on filedocumented in this encounter Additional Health Concerns Assessment Noted Time PHQ-9 Depression Total Score: 0 06/11/19 21 8:00 AM VAULT CUSTODIAN documented as of this encounter Care Teams Teacher Associate Relationship Specialty Start Date End Date Blade Schaefer MD [address] [place] [address] PCP - General Internal Medicine 04/16/17 Amor Graham MD [address] [facility] [place] [address] Consulting Physician Cardiovascular Disease - Cardiology 04/16/17 Catia Martinez PAC [address] [facility] [place] [address] Physician Financial Analysis Advisor Orthopaedic Surgery 12/09/20 Liban Mary MD [address] [place] [address] Consulting Physician Ophthalmology 06/11/21 12/26/23 Mary Prieto MD Consulting Physician Ophthalmology 05/06/17 Oxana Daniel OD Consulting Physician Optometry 12/27/23 documented as of this encounter
--- OUTSIDE RECORDS SUMMARY | 2024-09-12 17:10 | XMS_ITS | Clinical Summary ---
Author Organization [facility] Address [address] [place] [address] Care Team Providers Care Bar Back Name Role Phone Blade Schaefer MD Primary Care Provider + Allergies Active Allergy Reactions Criticality Noted Date Comments Clindamycin Hives Medium 12/28/2016 Penicillins Tetanus Vaccines And Toxoid Medications omega-3 fatty acids-fish oil 340-1,000 mg capsule 0 0 Active mc-cto-qyhus acid-lutein (CENTRUM SILVER) 400-250 mcg tablet,chewabl e [...] fibrillation 12/17/2016 Presence of cardiac pacemaker 12/17/2016 Encounters Date Type Department Care Team Description 09/05/2024 8:15 AM CDT Ancillary Procedure [place] Drag Out Man [address] [place] [phone] SSS (sick sinus syndrome) (HCC); Atrial fibrillation, unspecified type (HCC); Presence of cardiac pacemaker from Last 3 Months Surgical History Surgery Date Site/Laterality Comments HERNIA REPAIR Hernia repair HIP ARTHROPLASTY Bilateral Hip replacement TUMOR REMOVAL EYE SURGERY INSERT / REPLACE / REMOVE PACEMAKER Medical History Medical History Date Comments Hx Other Medical 2000 tumot removed Hx Other Medical eyes 2010 Family History Medical History Relation Name Comments Heart attack Father Family history of myocardial infarction - (Added by TW Conv) Sudden Cardiac Father Family history of sudden cardiac (SCD) - (Added by TW Conv) Cancer Mother Family history of malignant neoplasm - (Added by TW Conv) Cancer Other 1 Family history of Cancer; COPD Other 2 Family history of COPD; Coronary artery disease Other 3 Fami ly history of Coronary artery disease; Cancer Sister Family history of malignant neoplasm - (Added by TW Conv) Relation Name Status Comments Father Mother Other 1 Other 2 Other 3 Sister Social History Tobacco Use Types Packs/Day Years Used Date Smoking Tobacco: Never Smokeless Tobacco: Never Tobacco Cessation:Counseling Given: Not Answered Alcohol Use Standard Drinks/Week Comments Yes 0 (1 standard drink = 0.6 oz pur e alcohol) Sex and Gender Information Value Date Recorded Sex Assigned at Not on file Legal Sex Male 12:36 AM TIP MENDER Gender Identity Not on file Sexual Orientation Not on file Obstetrics History Last Filed Vital Signs Vital Sign Reading Time Taken Comments Blood Pressure 152/68 06/08/2024 10:46 AM TIP MENDER Pulse 70 06/08/2024 10:46 AM TIP MENDER Temperature 36.7 C (98.1 F) 04/17/2021 11:01 AM TIP MENDER Respiratory Rate 18 06/08/2024 10:46 AM TIP MENDER Oxygen Saturation 95% 04/30/2022 11:47 AM TIP MENDER Inhaled Oxygen Concentration - - Weight 77.1 kg (170 lb) 06/08/2024 10:46 AM TIP MENDER Height 180.3 cm (5' 11 ) 06/08/2024 10:46 AM TIP MENDER Body Mass Index 23.71 06/08/2024 10:46 AM TIP MENDER Plan of Treatment Health Maintenance Due Date Last Done Comments Depression Screening 1934 Fall Risk Assessment 1934 DTaP/Tdap/Td Vaccine (1 - Tdap) 1945 Hepatitis B Screening 1952 Well Visit 65+ 10/19/1999 Covid-19 Vaccine (3 - 2023-2 5 season) 2024 07/23/2020, 07/02/2020 Pneumococcal vaccine 65+ Completed 017, 06/02/2016, 05/31/2003 Zoster Vaccine Completed 05/15/2021, 03/12/2021 Influenza Vaccine Completed 03/16/2024, , 03/09/2019, Additional history exists Procedures Procedure Name Priority Date/Time Associated Diagnosis [...] the original result were not included. 09/05/2024 [place] quarterly remote device check NOTE The following shows snippets from the complete quarterly report. The complete report in its entirety is attached to this Result Text in Health Physicist. Presenting EGM Last in-office check 06/08/2024 6 month f/u office visit 12/14/2024 DC PPM, implanted 08/25/2016 Battery longevity = 2.3 yrs AT/AF burden < 1% Many AMS event episodes reported this monitoring quarter (18 with EGMs) longest 24 seconds- Warfarin Ap 97% RVp 25% Device Nurse Review and Recommendations below Reviewed By CT Paul MD Review and Recommendations below (please forward an in-basket message to your MA if check requires attention)ATTESTATION I have reviewed the device interrogation report associated with this encounter in detail. I agree with the documentation recorded/scanned into the electronic medical record. Recommendations: Continue current device follow-up. Bibiana Graham MD Bibiana Graham MD [facility] [place] OCEDURES Final Result from Last 3 Months Insurance [place] [id number] UHC MEDICARE ADVANTAGE [facility] MEDICARE ADVANTAGE Care Teams Bar Back Relationship Specialty Start Date End Date Blade Schaefer MD PCP - General 06/19/19
--- OUTSIDE RECORDS SUMMARY | 2024-09-12 17:10 | XMS_ITS | Encounter Summary ---
Author Organization [facility] Address [address] [place] [address] Phone Care Team Providers Care Prepress Manager Name Role Phone Blade Schaefer MD Primary Care Provider [phone] Amor Graham MD Unavailable [phone] Catia Martinez [facility] Unavailable [phone] Liban Mary MD Unavailable [phone] Reason for Visit * Reason Comments Medication Refill Encounter Details Date Type Department Care Team (Late st Contact Info) Description 09/28/2023 Refill [facility] - Primary Care - [place] [address] [place] [address] Blade Schaefer MD [address] [place] [address] Medication Refill Social History Tobacco [...] Telephone Encounter - Blade Schaefer MD - 09/29/2023 9:16 AM CDT The patient takes naproxen, which he indicates works better than meloxicam. * Telephone Encounter - Nadine Dick RN - 09/29/2023 8:40 AM CDT Medication failed the protocol, provider to review and approve the medication order if appropriate. Requested Prescriptions Pending Prescriptions Disp Refills meloxicam (MOBIC) 15 MG Tablet [Pharmacy Med Name: MELOXICAM 15 MG TABLET] 30 Tablet 0 Sig: Take 1 Tablet by mouth daily for 30 days. Anti-inflamatory NSAIDs Protocol Failed - 09/28/2023 7:47 PM Failed - Active on medication list Failed - Normal serum creatinine in past 12 months CREATININE, BLOOD Date Value Ref Range Status 06/16/2023 1.39 (H) 0.70 - 1.30 mg/dL Final Failed - Not delegated, patient not between 1 and 65 years of age Failed - HGB greater than 10 or HCT greater than 30 in past 12 months HEMOGLOBIN (HGB) Date Value Ref Range Status 10/27/2016 15.1 13.0 - 16.5 g/dL Final HEMATOCRIT (HCT) Date Value Ref Range Status 10/27/2016 43.9 38.0 - 50.0 % Final Passed - Visit with relevant provider in past 12 months or upcoming 90 days Recent Visits Date Type Provider Dept 08/13/23 Office Visit Blade Schaefer MD [facility] 07/29/23 Office Visit Blade Schaefer MD [facility] 06/16/23 Office Visit Blaed Schaefer MD [facility] 01/12/23 Office Visit Blade Schaefer MD [facility] 12/14/22 Office Visit Blade Schaefer MD [facility] Showing recent visits within past 365 days and meeting all other requirements Future Appointments Date Type Provider Dept 12/27/23 Appointment Blade Schaefer MD [facility] Showing future appointments within next 90 days and meeting all other requirements Passed - No matching NSAID med order in past 45 days No matching medication orders between 08/15/2023 8:40 AM and 09/29/2023 8:40 AM Passed - AST less than 55 or ALT less than 90 in past 12 months SGOT (AST) Date Value Ref Range Status 06/16/2023 27 5 - 34 U/L Final SGPT (ALT) Date Value Ref Range Status 06/16/2023 21 0 - 55 U/L Final documented in this encounter Plan of Treatment Upcoming Encounters Date Type Department Care Team (Late st Contact Info) Description 12/28/2024 11:00 AM CDT Office Visit [facility] - Primary Care - [place] [address] [place] [address] Blade Schaefer MD [address] [place] [address] documented as of this encounter Visit Diagnoses Diagnosis Bilateral hip pain Pain in joint, pelvic region and thigh documented in this encounter Additional Health Concerns Assessment Noted Time PHQ-9 Depression Total Score: 0 06/16/19 24 9:52 AM SURVEILLANCE OPERATOR documented as of this encounter Care Teams Prepress Manager Relationship Specialty Start Date End Date Blade Schaefer MD [address] [place] [address] PCP - General Internal Medicine 04/16/17 Amor Graham MD [address] [facility] [place] [address] Consulting Physician Cardiovascular Disease - Cardiology 04/16/17 Catia Martinez PAC [address] [facility] [address] Physician Regulatory Affairs Director Orthopaedic Surgery 12/09/20 Liban Mary MD [address] [place] [address] Consulting Physician Ophthalmology 06/11/21 12/26/23 Mary Prieto MD Consulting Physician Ophthalmology 05/06/17 Oxana Daniel OD Consulting Physician Optometry 12/27/23 documented as of this encounter
--- OUTSIDE RECORDS SUMMARY | 2024-09-12 17:10 | XMS_ITS | Encounter Summary ---
Author Organization [facility] Address [address] [place] [address] Phone Care Team Providers Care Custom Feed Corn Operator Name Role Phone Blade Schaefer MD Primary Care Provider [phone] Amor Graham MD Unavailable [phone] Catia Martinez [facility] Unavailable [phone] Liban Mary MD Unavailable [phone] Reason for Visit * Reason Comments Medication Refill Encounter Details Date Type Department Care Team (Late st Contact Info) Description 08/20/2023 Refill [facility] - Primary Care - [place] [address] [place] [address] Blade Schaefer MD [address] [place] [place] [address] Medication Refill Social History Tobacco [...] Miscellaneous Notes * Telephone Encounter - Diogo Galdamez RN - 08/20/2023 8:09 AM CDT Medication(s) [facility] Medication Refill Standing Order for Pediatricand Adult Patients. Requested Prescriptions Pending Prescriptions Disp Refills atorvastatin (LIPITOR) 20 MG Tablet [Pharmacy Med Name: ATORVASTATIN 20 MG TABLET] 90 Tablet 1 Sig: TAKE 1 TABLET BY MOUTH EVERY DAY Hmg CoA Reductase Inhibitors Protocol Passed - 08/20/2023 1:10 AM Passed - Visit with relevant provider in past 12 months or upcoming 90 days Recent Visits Date Type Provider Dept 08/13/23 Office Visit Blade Schaefer MD [facility] 07/29/23 Office Visit Blade Schaefer MD [facility] 06/16/23 Office Visit Blade Schaefer MD [facility] 01/12/23 Office Visit Blade Schaefer MD [facility] 12/14/22 Office Visit Blade Schaefer MD [facility] Showing recent visits within past 365 days and meeting all other requirements Future Appointments No visits were found meeting these conditions. Showing future appointments within next 90 days and meeting all other requirements Passed - Lipid panel in past 12 months LDL Date Value Ref Range Status 06/16/2023 93 <130 mg/dL Final HDL CHOLESTEROL Date Value Ref Range Status 06/16/2023 37 (L) >40 mg/dL Final CHOLESTEROL Date Value Ref Range Status 06/16/2023 149 <200 mg/dL Final TRIGLYCERIDES Date Value Ref Range Status 06/16/2023 96 <150 mg/dL Final VLDL Date Value Ref Range Status 06/16/2023 19 10 - 50 mg/dL Final CHOL/HDL RATIO Date Value Ref Range Status 06/16/2023 4.0 0.0 - 4.4 Final NON-HDL CHOLESTEROL Date Value Ref Range Status 06/16/2023 112 <130 mg/dL Final Passed - CMP in past 12 months SODIUM Date Value Ref Range Status 06/16/2023 135 (L) 136 - 145 mmol/L Final POTASSIUM Date Value Ref Range Status 06/16/2023 5.0 3.5 - 5.1 mmol/L Final CHLORIDE Date Value Ref Range Status 06/16/2023 103 98 - 107 mmol/L Final CO2, VENOUS Date Value Ref Range Status 06/16/2023 25 22 - 30 mmol/L Final ANION GAP Date Value Ref Range Status 06/16/2023 12.0 <18.0 mmol/L Final GLUCOSE Date Value Ref Range Status 06/16/2023 91 70 - 99 mg/dL Final BUN Date Value Ref Range Status 06/16/2023 28 (H) 8 - 26 mg/dL Final CREATININE, BLOOD Date Value Ref Range Status 06/16/2023 1.39 (H) 0.70 - 1.30 mg/dL Final BUN/CREATININE RATIO Date Value Ref Range Status 06/16/2023 20 12 - 20 ratio Final TOTAL PROTEIN Date Value Ref Range Status 06/16/2023 6.8 6.3 - 8.2 g/dL Final ALBUMIN Date Value Ref Range Status 06/16/2023 3.9 3.5 - 5.0 g/dL Final A/G RATIO Date Value Ref Range Status 06/16/2023 1.3 1.0 - 2.2 Final CALCIUM Date Value Ref Range Status 06/16/2023 9.2 8.7 - 10.5 mg/dL Final T BILI Date Value Ref Range Status 06/16/2023 0.9 0.2 - 1.2 mg/dL Final SGOT (AST) Date Value Ref Range Status 06/16/2023 27 5 - 34 U/L Final SGPT (ALT) Date Value Ref Range Status 06/16/2023 21 0 - 55 U/L Final ALKALINE PHOSPHATASE Date Value Ref Range Status 06/16/2023 73 40 - 150 U/L Final GFR, EST. NONAFRICAN Date Value Ref Range Status 06/16/2023 48 (L) >=60 Final GFR, EST. Date Value Ref Range Status 06/16/2023 58 (L) >=60 Final GFR, ESTIMATED Date Value Ref Range Status 06/16/2023 49 (L) >=60 Final Comment: Creatinine Clearance is the preferred criteria for selecting drug dose adjustments in renally impaired patients. The GFR is provided as additional pertinent clinical information. GFR is reported in mL/min/1.73 sq m. Calculation based on the Chronic Kidney Disease Epidemiology Collaboration (CKD- EPI) equation refitwithout adjustment for race. IS THE PATIENT REQUIRED TO BE FASTING? 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 documented as of this encounter Care Teams Custom Feed Corn Operator Relationship Specialty Start Date End Date Blade Schaefer MD [address] [place] [address] PCP - General Internal Medicine 04/16/17 Amor Graham MD [address] [place] [address] Consulting Physician Cardiovascular Disease - Cardiology 04/16/17 Catia Martinez PAC [address] [address] Physician Yield Clerk Orthopaedic Surgery 12/09/20 Liban Mary MD [address] [place] [address] Consulting Physician Ophthalmology 06/11/21 12/26/23 Mray Prieto MD Consulting Physician Ophthalmology 05/06/17 Oxana Daniel OD Consulting Physician Optometry 12/27/23 documented as of this encounter
--- OUTSIDE RECORDS SUMMARY | 2024-09-12 17:10 | XMS_ITS | Encounter Summary ---
Author Organization [facility] Address [address] [place] [address] Phone Care Team Providers Care Water Quality Analyst Name Role Phone Blade Schaefer MD Primary Care Provider [phone] Amor Graham MD Unavailable [phone] Catia Martinez [facility] Unavailable [phone] Liban Mary MD Unavailable [phone] Reason for Visit * Reason Comments Medication Refill Encounter Details Date Type Department Care Team (Late st Contact Info) Description 09/09/2023 Refill [facility] - Primary Care - [place] [address] [place] [address] Blade Schaefer MD [address] [place] [address] Medication Refill Social History Tobacco [...] Telephone Encounter - Diogo Galdamez RN - 09/10/2023 8:35 AM CDT Patient taking Naproxen * Telephone Encounter - Diogo Galdamez RN - 09/10/2023 8:21 AM CDT Medication failed the protocol, provider to review and approve the medication order if appropriate. Requested Prescriptions Pending Prescriptions Disp Refills meloxicam (MOBIC) 15 MG Tablet [Pharmacy Med Name: MELOXICAM 15 MG TABLET] 30 Tablet 0 Sig: Take 1 Tablet by mouth daily for 30 days. Anti-inflamatory NSAIDs Protocol Failed - 09/09/2023 5:03 PM Failed - Active on medication list Failed - Normal serum creatinine in past 12 months CREATININE, BLOOD Date Value Ref Range Status 06/16/2023 1.39 (H) 0.70 - 1.30 mg/dL Final Failed - Not delegated, patient not between 1 and 65 years of age Failed - No matching NSAID med order in past 45 days Matching medication order placed on 07/29/2023 9:57 AM Order [id number]: meloxicam (MOBIC) 15 MG Tablet (For orders placed between 07/27/2023 8:21 AM and 09/10/2023 8:21 AM) Failed - HGB greater than 10 or [...] Dept 08/13/23 Office Visit Blade Schaefer MD [facility] 07/29/23 Office Visit Blade Schaefer MD [facility] 06/16/23 Office Visit Blade Schaefer MD [facility] 01/12/23 Office Visit Blade Schaefer MD [facility] 12/14/22 Office Visit Blade Schaefer MD [facility] Showing recent visits within past 365 days and meeting all other requirements Future Appointments No visits were found meeting these conditions. 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 documented as of this encounter Care Teams Water Quality Analyst Relationship Specialty Start Date End Date Blade Schaefer MD [address] [place] [address] PCP - General Internal Medicine 04/16/17 Amor Graham MD [address] [place] [address] Consulting Physician Cardiovascular Disease - Cardiology 04/16/17 Catia Martinez PAC [address] [place] [address] Physician Nurse Practitioner Home Assessments Orthopaedic Surgery 12/09/20 Liban Mary MD [address] [place] [address] Consulting Physician Ophthalmology 06/11/21 12/26/23 Mary Prieto MD Consulting Physician Ophthalmology 05/06/17 Oxana Daniel OD Consulting Physician Optometry 12/27/23 documented as of this encounter
--- OUTSIDE RECORDS SUMMARY | 2024-09-12 17:10 | XMS_ITS | Clinical Summary ---
Author Organization [facility] Address [address] [address] Phone Care Team Providers Care Administrative Assistant Name Role Phone Blade Schaefer MD Primary Care Provider [phone] Amor Graham MD Unavailable [phone] Catia Martinez Unavailable [phone] Allergies Active Allergy Reactions Criticality Noted Date Comments Clindamycin Hives 12/28/2016 Penicillins Unknown Tetanus Toxoids Unknown Told not to get a tetanus shot. Medications Multiple Vitamins-Minera ls (CENTRUM SILVER PO) Take 1 Tab by mouth daily. Active Glucosamine-Cho ndroitin (OSTEO BI-FLEX REGULAR STRENGTH PO) Take 1 Tab by mouth daily. Active aspirin 325 MG Tablet Take 325 mg by mouth daily. Active latanoprost (XALATAN) 0.005 % Solution Place 1 Drop in affected eye(s) nightly. IN LEFT EYE. Active Cod Liver Oil Capsule Take 1 Capsule by mouth 2 times daily. Active Garlic 1000 MG Capsule Take 1 Cap by mouth 2 times daily. Active Coenzyme Q10 (COQ10) 200 MG Capsule Take 1 Cap by mouth daily. Takes at noon. Active metoprolol tartrate (LOPRESSOR) 50 MG Tablet Take 50 mg by mouth 2 times daily. Take 1/2 tablet by mouth in the morning then take 1 tablet by mouth in the evening 021 Active [place]-3 Fatty Acids (FISH OIL PO) Take by mouth. Activ e lisinopril (PRINIVIL, ZESTRIL) 10 MG TabletIndicatio ns:Hypertension , essential Take 1 Tablet by mouth daily. 90 Tablet 3 024 Active DULoxetine (CYMBALTA) [address] ParticlesIndica tions:Chronic midline low back pain without sciatica Take 1 Capsule by mouth nightly. 90 Capsule 1 024 Active valACYclovir (VALTREX) 1 GM Tablet Take 1 Tablet by mouth 2 times daily. 20 Tablet 025 Active atorvastatin (LIPITOR) 20 MG Tablet TAKE 1 TABLET BY MOUTH EVERY DAY 90 Tablet 3 025 Active warfarin (COUMADIN) 3 MG TabletIndicatio ns:Atrial Fibrillation Take 1 Tablet by mouth every other day. Indications: Atrial Fibrillation 45 Tablet 1 025 Active warfarin (COUMADIN) 4 MG TabletIndicatio ns:Atrial Fibrillation Take one tab every other day- alternate with 3 mg tabs Indications: Atrial Fibrillation 90 Tablet 1 025 Active atorvastatin (LIPITOR) 20 MG Tablet TAKE 1 TABLET BY MOUTH EVERY DAY 90 Tablet 1 024 2024 Discontinued warfarin (COUMADIN) 4 MG TabletIndicatio ns:Longstanding persistent atrial fibrillation (HCC) Take 1 Tablet by mouth daily. 90 Tablet 1 024 2024 Discontinued(D ose adjustment) Active Problems Problem Noted Date Diagnosed Date Hypertensive retinopathy 08/23/2024 Herpes zoster without complication 06/26/2024 Hypertension, essential 10/13/2023 Pulmonary HTN 10/13/2023 Irritant contact dermatitis due to other agents 06/11/2021 Pacemaker 09/01/2016 Longstanding persistent atrial fibrillation 05/2016 Primary open angle glaucoma 11/25/2015 Mixed hyperlipidemia Arthritis Resolved Problems Problem Noted Date Diagnosed Date Resolved Date Branch retinal vein occlusion of left eye 08/23/2024 08/23/2024 Trochanteric bursitis of both hips 10/17/2020 06/15/2022 Screening for prostate cancer 04/19/2017 10/14/2017 Pre-syncope 11/17/2016 04/16/2017 Weakness 10/27/2016 04/16/2017 Chest pain 04/16/2017 Encounters Date Type Department Care Team Description 09/07/2024 Refill [facility] [address] [place] [address] Blade Schaefer MD Medication Refill 09/06/2024 [facility] [address] [place] [address] Blade Schaefer MD Anticoagulation Monitoring (INR) 08/23/2024 Telephone [facility] [address] [place] [address] Blade Schaefer MD Anticoagulation Monitoring (INR) 08/13/2024 Refill [facility] [place] [address] Blade Schaefer MD Medication Refill 08/10/2024 Telephone [facility] [place] [address] Blade Schaefer MD Anticoagulation Monitoring (INR) 07/26/2024 Telephone [facility] [place] [address] Blade Schaefer MD Results (INR) 06/28/2024 Telephone [facility] [place] [address] Blade Schaefer MD Anticoagulation Monitoring (INR) 06/26/2024 11:30 AM [employer] Office Visit [facility] [place] [address] Giselle Mathew, 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, 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 Mixed hyperlipidemia (Primary Dx); Pacemaker; Hypertension, essential; Longstanding persistent atrial fibrillation (HCC); Herpes zoster without complication Discharge Disposition: Discharged to home or Selfcare 06/26/2024 Travel 06/26/2024 Nurse Triage [facility] [address] [place] [address] Blade Schaefer MD Advice Only; Appointment; Shingles from Last 3 Months Immunizations Immunization Administration Dates Next Due Covid-19, Mrna, Lnp-s, Pf, 3 0 Mcg/0.3 Ml Dose (Pfizer) 07/23/2020,07/02/2020 Covid-19, Mrna, Lnp-s, Pf, 3 0 Mcg/0.3 Ml Dose, Kamran-sucrose (Pfizer camacho top) 03/16/2024 Covid-19, Mrna, Lnp-s, Pf, 5 0 Mcg/0.5 Ml Dose 03/24/2023 Influenza Vaccine greater than 3 yrs 03/09/2019, 03/15/2018,02/28/2013 Influenza, High-dose, Quadrivalent 03/12/2021 Influenza, Injectable, Quadrivalent 02/28/2020 Influenza, Quadrivalent, Adjuvanted 03/24/2023,1 Influenza, Trivalent, Adjuvanted, PF 03/11/2017 Influenza, high-dose, trivalent, PF 03/16/2024,1 ,03/28/2015 Pneumococcal Vaccine - 13 Valent 03/06/2017,07/2016 Pneumococcal Vaccine Adult - 23 Valent 4 Zoster Vaccine Recombinant 05/15/2021,03/12/2021 Family History Medical History Relation Name Comments Heart Disease Father Cancer Mother female Cancer Son colon Colon Cancer Son Relation Name Status Comments Father Mother Son Social History Tobacco Use Types Packs/Day Years Used Date Smoking Tobacco: Some Days Cigars Smokeless Tobacco: Never Tobacco Cessation:Ready to Q uit: Not Asked Comments:Smokes a cigar every once and a while Alcohol Use Standard Drinks/Week Comments Yes 5 (1 standard drink = 0.6 oz pur e alcohol) Rarely PHQ-2 Answer Date Recorded Total Score - Questions 1-9 0 05/31 Sex and Gender Information Value Date Recorded Sex Assigned at Male 01/11/2023 11:12 AM CDT Legal Sex Male 7:59 PM CDT Gender Identity Male 01/11/2023 11:12 AM CDT Sexual Orientation Not on file Last Filed Vital Signs Vital Sign Reading Time Taken Comments Blood Pressure 100/74 06/26/2024 11:47 AM [employer] Pulse 75 06/26/2024 11:47 AM [employer] Temperature 36.9 C (98.5 F) 06/26/2024 11:47 AM [employer] Respiratory Rate 14 06/26/2024 11:47 AM [employer] Oxygen Saturation 97% 06/26/2024 11:47 AM [employer] Inhaled Oxygen Concentration - - Weight 74.5 kg (164 lb 5 oz) 06/26/2024 11:47 AM [employer] Height 180.3 cm (5' 11 ) 06/26/2024 11:47 AM [employer] Body Mass Index 22.92 06/26/2024 11:47 AM [employer] Plan of Treatment Upcoming Encounters Date Type Department Care Team (Late st Contact Info) Description 12/28/2024 11:00 AM CDT Office Visit [facility] - Primary Care - [place] [address] [place] [address] Blade Schaefer MD [address] [place] [address] Health Maintenance Due Date Last Done Comments TdaP Immunization 1935 Respiratory Syncytial Virus (RSV) Immunization (Adult) (1 - 1-dose 75+ series) 2009 SARS-COV-2 Immunization ( season) 2024 03/16/2024, 03/24/2023, 03/05/2022, Additional history exists Pneumococcal Immunization (50+ years) Completed 03/06/2017, 06/02/2016, 05/31/2003 Pneumococcal Immunization Combined Discontinued 03/06/2017, 06/02/2016, 05/31/2003 Zoster Immunization Completed 05/15/2021, Hepatitis C Virus (HCV) Screening Completed 06/16/2023 Influenza Immunization Completed , 03/24/2023, 03/05/2022, Additional history exists Hepatitis B Immunization Aged Out No longer eligible based on patient's age to complete this topic Meningococcal Immunization (ACWY) Aged Out No longer eligible based on patient's age to complete this topic Rotavirus Immunization Aged Out No lo nger eligible based on patient's age to complete this topic Medical Devices Implanted Type Area Surgical Consultant Device Identifier Shelf Expiration Date Model / Serial / Lot Clip 360 Resolution 235cm - [id number] Implanted:Qty: 4 on 04/21/2019 by Aneesh Dawson DO at [facility] IMPLANT [employer] 10/02/2021 [id number] / [id number] / [id number] Procedures Procedure Name Priority Date/Time Associated Diagnosis Comments EXTERNAL INR (PT) Routine 09/06/2024 EXTERNAL INR (PT) Routine 08/23/2024 PROTIME (PT) (PROTHROMBIN TIME) 08/23/2024 12:00 AM CDT EXTERNAL INR (PT) Routine 08/07/2024 PROTIME (PT) (PROTHROMBIN TIME) 08/07/2024 12:00 AM CDT PROTIME (PT) (PROTHROMBIN TIME) 07/26/2024 12:00 AM [employer] EXTERNAL INR (PT) Routine 06/28/2024 PROTIME (PT) (PROTHROMBIN TIME) 06/28/2024 12:00 AM [employer] HEPATITIS C ANTIBODY Routine 06/16/2023 10:12 AM [employer] Encounter for hepatitis C screening test for low risk patient from Last 3 Months or Most Recently Relevant to Health Maintenance Results * (ABNORMAL) EXTERNAL INR (PT) (09/06/2024) Only the most recent of4 resultswithin the time period is included. INR 3.00(A) 0.90 - 1.10 Blood Historical Provider POINT OF CARE TESTING (MURRAY CURRAN) Final Result * PROTIME (PT) (PROTHROMBIN TIME) (08/23/2024 12:00 AM CDT) Only the most recent of4 resultswithin the time period is included. INR 3.9 SCAN 08/23/2024 us Provider Scan HEMATOLOGY ORDERABLES Final Resu lt SCAN * HEPATITIS C ANTIBODY (06/16/2023 10:12 AM [employer]) hepatitis C antibody 0.10 <1 S/[facility] [id number] 06/17/2023 2:15 AM [employer] [facility] Comment: Signal/Cutoff ratio < 0.79 is Nondetected Signal/Cutoff ratio 0.80-0.99 is Grayzone Signal/Cutoff ratio > 0.99 is Detected Supplemental assays are recommended if signal/cutoff ratio is >/=1.00. Signal/cutoff ratio result >/= 5.00 is 97% predictive of positivity for recombinant immunoblot assay (RIBA) and will be reported to the [place] Department of Public Health as required. Blood Venipuncture / Unknown 06/16/2023 10:12 AM [employer] 06/16/2023 10:12 AM [employer] us Blade Schaefer MD CHEMISTRY ORDERABLES Jinny l Result Performing Organization Address City/[facility]/ZIP Co de Phone Number [facility] [address] [place] [address], from Last 3 Months or Most Recently Relevant to Health Maintenance Insurance MEDICARE C [employer] [facility] Care Teams Administrative Assistant Relationship Specialty Start Date End Date Blade Schaefer MD [address] [place] [address] PCP - General Internal Medicine 04/16/17 Amor Graham MD [address] [place] [address] Consulting Physician Cardiovascular Disease - Cardiology 04/16/17 Catia Martinez PAC [address] [place] [address] [place] [address] Physician Veneer Stock Grader Orthopaedic Surgery 12/09/20 Mary Prieto MD Consulting Physician Ophthalmology 05/06/17 Oxana Daniel OD Consulting Physician Optometry 12/27/23
--- OUTSIDE RECORDS SUMMARY | 2024-09-12 17:10 | XMS_ITS | Continuity of Care Document ---
Author Organization [facility] Address [address] [place] [address] Phone Care Team Providers Care Coal Shooter Name Role Phone María RICHARDS, Oxana Unavailable Unavailable Allergies, Adverse Reactions, Alerts Substance Reaction Status Criticality clindamycin Active No Information penicillin G Active No Information Tetanus Vaccines and Toxoid Active No Information Medications Medication Instructions Dosage Effective Dates (start - stop) Status Comments LATANOPROST 0.005% EYE DROPS INSTILL 1 DROP INTO THE LEFT EYE ONCE DAILY IN THE EVENING - Active Centrum Silver Men 300 mcg-600 mcg-300 mcg tablet take one tablet daily - Active COD LIVER OIL (unknown strength) take one tablet daily Not Available - Active metoprolol succinate ER 50 mg tablet,extended release 24 hr take one tablet daily - Active Osteo Bi-Flex 250 mg-200 mg tablet take one tablet daily - Active aspirin 325 mg tablet take 1 tablet by oral route every day 325 MG - Active atorvastatin 20 mg tablet take 1 tablet by oral route every day 20 MG - Active warfarin 4 mg tablet take 1 tablet by oral route every day 4 MG - Active Procedures Procedure Date Visual Field Examination(s) No Charge Optomap Fundus Photos Office/outpatient Visit, Est No Charge Optomap Fundus Photos SCODI, Retina Office/outpatient Visit, Est No Charge Optomap Fundus Photos Enrike-25-2 024 SCODI, Posterior Segment Eye Exam & Treatment Visual Field Examination(s) SCODI, Posterior Segment Office/outpatient Visit, Est Visual Field Examination(s) Fundus Photography W/ Report Office/outpatient Visit, Est SCODI, Posterior Segment No Charge Optomap Fundus Photos 023 Eye Exam & Treatment Fundus Photography W/ Report Visual Field Examination(s) Office/outpatient Visit, Est No Charge Optomap Fundus Photos 022 SCODI, Posterior Segment Office/outpatient Visit, Est Fundus Photography W/ Report Visual Field Examination(s) Eye Exam & Treatment No Charge Optomap Fundus Photos 021 SCODI, Posterior Segment Office/outpatient Visit, Est Visual Field Examination(s) Fundus Photography W/ Report Eye Exam & Treatment SCODI, Posterior Segment Office/outpatient Visit, Est Fundus Photography W/ Report Visual Field Examination(s) Office/outpatient Visit, Est Post-op Follow-up Visit Visual Field Examination(s) SCODI, Posterior Segment No Charge Refraction No Charge GDX Retina After Cataract Laser Surgery Eye Exam & Treatment Office/outpatient Visit, Est No Charge Refraction Office/outpatient Visit, Est Office/outpatient Visit, Est Visual Field Examination(s) SCODI, Posterior Segment Eye Exam & Treatment Office/outpatient Visit, Est Office/outpatient Visit, Est Visual Field Examination(s) Corneal Pachymetry SCODI, Posterior Segment Office/outpatient Visit, Est Eye Exam & Treatment Eye Exam & Treatment Feb- Eye Exam & Treatment Eye Exam & Treatment Post-op Follow-up Visit Remove Cataract, Post Op Care 1 Remove Cataract, Insert Lens,Comanaged A Echo Exam Of Eye-Professional 1 Post-op Follow-up Visit Remove Cataract, Post Op Care 1 Remove Cataract, Insert Lens,Comanaged A Echo Exam Of Eye-Professional 1 Office/outpatient Visit, New Echo Exam Of Eye-Technical Fundus Photography W/ Report One Or More Rx Generated And Transmitted Advance Directives Directive Yes / No Effective Date File Name No Information Encounters Encounter Description Practice Location Reason(s) For Visit Diagnoses Date Provider Providers Copied on Encounter Office/outpa tient Visit, [facility], [address], [place], [place], [address], tel:[phone] SEC Dez RAYA Professional glaucoma, pressure check (chief complaint) Primary open-angle glaucoma, left eye, severe stagePrimary open-angle glaucoma, right eye, mild stagePseudoph emily of both eyesOther secondary cataract, right eyeDrusen (degenerative ) of macula, bilateralStab le branch retinal vein occlusion of left eyeHypertensi ve retinopathy of both eyes 5 María Daigle. [address], [address], [place], [place], [address], [place]. tel:[phone] Office/outpa tient Visit, [facility], [address], [place], [place], [address], tel:[phone] SEC Dez RAYA Professional glaucoma, pressure check (chief complaint) Primary open-angle glaucoma, left eye, severe stagePrimary open-angle glaucoma, right eye, mild stagePseudoph emily of both eyesOther secondary cataract, right eyeDrusen (degenerative ) of macula, bilateralStab le branch retinal vein occlusion of left eyeHypertensi ve retinopathy of both eyes Oct-2 4 María OD Oxana. [facility] [address], [address], [place], [place], [address], . tel:[phone] [facility], [address] [place] [address] [address], [place], [place], [address], [phone] SEC Dez RAYA Professional Complete Exam (chief complaint) Primary open-angle glaucoma, left eye, severe stagePrimary open-angle glaucoma, right eye, mild stagePseudoph emily of both eyesOther secondary cataract, right eyeVitreous degeneration, bilateralDrus en (degenerative ) of macula, bilateralStab le branch retinal vein occlusion of left eye Enrike- 4 María OD Oxana. [facility] [address], [address], [place], [place], [address], . tel:[phone] Office/outpa tient Visit, [facility], [address], [place], [place], [address], [phone] SEC Dez RAYA Professional glaucoma, pressure check (chief complaint) Primary open-angle glaucoma, left eye, severe stagePrimary open-angle glaucoma, right eye, mild stagePseudoph emily of both eyesOther secondary cataract, right eye Fe-0 4 María OD Oxana. [facility] [address], [address], [place], [place], [address], [place]. tel:[phone] Office/outpa tient Visit, [facility], [address] [place], [place] [address], [place], [place], [address], tel:[phone] SEC Dez RAYA Professional glaucoma, pressure check (chief complaint) Primary open-angle glaucoma, left eye, severe stagePrimary open-angle glaucoma, right eye, mild stagePseudoph emily of both eyesOther secondary cataract, right eye Oct- 3 María Daigle. [address] [place] [address], [address], [place], [place], [address], . tel:[phone] [facility], [address] [place] [address] [address], [place], [place], [address], [place] tel:[phone] Wurldtechjerri RAYA Professional No Information Sep-2 3 Usman Louie. [address], [facility] [place], [address], [place]. tel:[phone] [facility], [address] [place] [address] [address], [place], [place], [address], tel:[phone] [employer] Dez RAYA Professional 6 month Complete (chief complaint) Primary open-angle glaucoma, left eye, severe stagePrimary open-angle glaucoma, right eye, mild stagePseudoph emily of both eyes Apr- 3 Usman Louie. [address], [address], [place], [place], [address], [place]. tel:[phone] Office/outpa tient Visit, [facility], [address] [place] [address] [address], [place], [place], [address], [place] tel:[phone] [employer] Dez RAYA Professional glaucoma, pressure check (chief complaint) Primary open-angle glaucoma, left eye, severe stagePrimary open-angle glaucoma, right eye, mild stagePseudoph emily of both eyes Oct- 2 Usman Louie. [address], [place], [address], [place]. tel:[phone] Office/outpa tient Visit, [facility], [address] [place] [address] [address], [place], [place], [address], tel:[phone] SEC Material Wr[place] Professional 6 mo IOP check (chief complaint) Primary open-angle glaucoma, left eye, severe stagePrimary open-angle glaucoma, right eye, mild stagePseudoph emily of both eyes 2 María OD Oxana. [address] [place] [address], [address], [place], [place], [address], . tel:[phone] [facility], [address] [place] [address] [address], [place], [place], [address], tel:[phone] SEC Material [place] Professional 6 month Complete w/VF (chief complaint) Primary open-angle glaucoma, right eye, mild stagePrimary open-angle glaucoma, left eye, severe stagePseudoph emily of both eyesStable branch retinal vein occlusion of left eye 1 Usman Louie. [address], [facility] [place], [address], [place]. tel:[phone] Office/outpa tient Visit, Est [facility], [address] [place] [address] [address], [place], [place], [address], [phone] [employer] Professional 6 month IOP check (chief complaint) Primary open-angle glaucoma, right eye, mild stagePrimary open-angle glaucoma, left eye, severe stage Mar-0 1 Usman Louie. [address], [address], [place], [place], [address], [place]. tel:[phone] [facility], [address] [place] [address] [address], [place], [place], [address], [phone] SEC Material [place] Professional 6 month Complete w/VF (chief complaint) Primary open-angle glaucoma, right eye, mild stagePrimary open-angle glaucoma, left eye, severe stagePseudoph emily of both eyesOther secondary cataract, right eyeVitreous degeneration, right eyeRPE mottling of macula Sep-0 -202 0 Usman Louie. [address], [address], [place], [place], [address], [place]. tel:[phone] Office/outpa tient Visit, [facility], [address] [place] [address] [address], [place], [place], [address], [place] tel:[phone] SEC Dez RAYA Professional IOP Check (chief complaint) Primary open-angle glaucoma, left eye, severe stagePrimary open-angle glaucoma, right eye, mild stage Feb-1 0-202 0 Usman Louie. [address], [address], [place], [place], [address], [place]. tel:[phone] Office/outpa tient Visit, [facility], [address] [place] [address] [address], [place], [place], [address], [place] [phone] SEC Dez RAYA Professional glaucoma, pressure check (chief complaint) Primary open-angle glaucoma, left eye, severe stagePrimary open-angle glaucoma, right eye, mild stage Oct-0 2- 9 Starla OD Nile. [address] [place] [address], [address] [place] [address], [place], [address], [place]. tel:[phone] [facility], [address] [place] [address] [address], [place], [place], [address], [place] [phone] SEC Dez RAYA Professional Post-Op (chief complaint) Encounter for examination following surgery 0-201 9 Starla OD Nile. [facility], [address], [place], [address], [place]. tel:[phone] [facility], [address] [place] [address] [address], [place], [place], [address], [place] [phone] SEC Dez RAYA Professional Complete Exam (chief complaint) Primary open-angle glaucoma, right eye, mild stagePrimary open-angle glaucoma, left eye, severe stagePseudoph emily of both eyesOther secondary cataract, bilateral 9 Usman Loiue. [address] [facility], [address], [place], [place], [address], [place]. tel:[phone] [facility], [address] [place] [address] [address], [place], [place], [address], [place] tel:[phone] SEC [place] Professional No Information 9 Usman Louie. [address] [facility], [facility] A, [place], [place], [address], [place]. tel:[phone] Office/outpa tient Visit, [facility], [address] [place] [address] [address], [place], [place], [address], [place] tel:[phone] SEC Dez [place] Professional 3 mo IOP check (chief complaint) No Information 8 Ida Hernandez. [address] [place], [address], [place]. tel:[phone] Office/outpa tient Visit, [facility], [address], [place], [place], [address], [place] tel:[phone] SEC [place] Professional IOP Check (chief complaint) No Information 7 Ida Hernandez. [address] [place], [address], [place]. tel:[phone] Office/outpa tient Visit, [facility], [address] [place] [address] [address], [place], [place], [address], [place] tel:[phone] SEC [place] Professional 6 month Pressure check (chief complaint) No Information 7 Ida Hernandez. [address] [place], [address], [place]. tel:[phone] [facility], [address], [place], [place], [address], [place] tel:[phone] SEC [place] Professional Complete Exam (chief complaint) No Information 7 La Nena Carlin. [address], [address], [place], [place], [address], [place]. tel:[phone] Office/outpa tient Visit, [facility], [address] [place] [address] [address], [place], [place], [address], [place] tel:[phone] SEC Dez RAYA Professional 4 month IOP check. (chief complaint) No Information Feb-3 6 La Nena Carlni. [address], [address], [place], [place], [address], [place]. tel:[phone] Office/outpa tient Visit, [facility], [address] [place] [address] [address], [place], [place], [address], [place] tel:[phone] SEC Dez RAYA Professional 1 month IOP check (chief complaint) No Information 6 La Nena Carlin. [address], [address], [place], [place], [address], [place]. tel:[phone] Office/outpa tient Visit, [facility], [address] [place] [address] [address], [place], [place], [address], [place] tel:[phone] SEC Dez RAYA Professional 2 month IOP check, HVF 24-2, pachs, ON OCT (chief complaint) No Information - 6 La Nena Carlin. [address], [address], [place], [place], [address], [place]. tel:[phone] [facility], [address] [place] [address] [address], [place], [place], [address], [place] tel:[phone] SEC Dez RAYA Professional Complete IOL check (chief complaint) No Information 6 La Nena Carlin. [address], [address], [place], [place], [address], [place]. tel:[phone] [facility], [address], [place], [place], [address], [place] tel:[phone] SEC Dez ELVER Professional Difficulty reading (chief complaint) No Information Feb-0 1-201 4 Wankum Tesfaye. [address], [address], [place], [place], [address], [place]. tel:[phone] [facility], [address], [place], [place], [address], [place] tel:[phone] SEC Dez RAYA Professional No Information Nov-0 8-201 3 Wankum Tesfaye. [address], [address], [place], [place], [address], [place]. tel:[phone] [facility], [address], [place], [place], [address], [place] tel:[phone] SEC Dez RAYA Professional No Information Nov-0 3-201 3 Wankum Tesfaye. [address] [address], [place], [address], [place]. tel:[phone] [facility], [address], [place], [place], [address], [place] tel:[phone] SEC Dez RAYA Professional No Information September-1 6-201 2 Wankum Tesfaye. [address], [place], [address], [place]. tel:[phone] [facility], [address], [place], [place], [address], [place] tel:[phone] SEC Kent ELVER Professional No Information May-1 2-201 1 Wankum Tesfaye. [address], [address] [place], [address], [place]. tel:[phone] Referring Provider: Tesfaye Swann, [address], [place], [address] . tel:[phone] [facility], [address], [place], [place], [address], tel:[phone] SEC [place] Professional No Information Apr-2 9 1 La Nena Carlin. [address], [place], [place], [address], [place]. tel:[phone] Referring Provider: Tesfaye Swann, [address], [place], [address] . tel:[phone] [facility], [address], [place], [place], [address], [place] tel:[phone] [facility] [place] No Information Apr-2 8 1 Brandamore Ashish. [address], [address], [place], [place], [address], [place]. tel:[phone] Referring Provider: Tesfaye Swann, [address], [place], [address] . tel:[phone] [facility], [address], [place], [place], [address], [place] tel:[phone] SEC Lisa Jerri [facility] No Information Apr-2 1 Antionette Ashish. [address], [address], [place], [place], [address], [place]. tel:[phone] [facility], [address], [place], [place], [address], [place] tel:[phone] SEC [place] Professional No Information Apr-2 0-201 1 La Nena Carlin. [address], [place], [place], [address], [place]. tel:[phone] [facility], [address], [place], [place], [address], [place] tel:[phone] SEC Dez ELVER Professional No Information Apr-0 6-201 1 Stanleymakayla Carlin. [address] [facility] [facility], [address], [place], [place], [address], [place]. tel:[phone] [facility] [place] A Partager [facility], [address], [place], [place], [address], [place] tel:[phone] [facility] No Information Apr-0 5- 1 Antionette Ashish. [address], [place], [place], [address], [place]. tel:[phone] [facility] [place] A Partager [facility], [address], [place], [place], [address], [place] tel:[phone] SEC Lisa Felix No Information Apr-0 4- 1 Brandamore Ashish. [address], [address], [place], [place], [address], [place]. tel:[phone] Office/outpa tient Visit, [place] [facility], [address], [place], [place], [address], [place] tel:[phone] SEC Kent ELVER Professional No Information Mar-0 8- 1 Antionette Ashish. [address], [address], [place], [place], [address], [place]. tel:[phone] Family History Family Member Type Diagnosis Age At Onset Problem (finding) Family history of hyper tension Payers Payer name Insurance type Covered green party ID Aneudy mannyash(s) [facility] Mdcr Adv [place] [id number] Social History Type Description Quantity Date Captured Comments Alcohol Use Details No Caffeine Use Details No Tobacco Use Status Current non-smoker Smoking Status Never smoker Non-Smoking Tobacco Use Details : No Details Available : No Details Available Sex Male Chief Complaint And Reason For Visit From encounter dated '07/19/2024 10:30'. glaucoma, pressure check (chief complaint). Description: The 88 year old patient presents for a 4 month POAG ou IOP check. Patient is using drop as directed. Patient denies any changes in vision ou. Reason For Referral Reason For Referral No Information Plan Of Treatment Date Type Action Status Goal Tobacco cessation counseling completed Goal Tobacco cessation counseling completed Goal Tobacco cessation counseling completed Goal Tobacco cessation counseling completed Appointment Linden Dean BOOKED Patient Education Open-Angle Glaucoma: Ca re Instructions completed Patient Education Open-Angle Glaucoma: Ca re Instructions completed Patient Education Learning About Vitreous Detachment completed Patient Education Open-Angle Glaucoma: Ca re Instructions completed Patient Education Open-Angle Glaucoma: Ca re Instructions completed Patient Education Reduced Vision: Care In structions completed Patient Education Open-Angle Glaucoma: Ca re Instructions completed Patient Education Open-Angle Glaucoma: Ca re Instructions completed Patient Education Open-Angle Glaucoma: Ca re Instructions completed Patient Education Open-Angle Glaucoma: Ca re Instructions completed Patient Education Learning About YAG Lase r Capsulotomy completed Patient Education Open-Angle Glaucoma: Ca re Instructions completed History Of Present Illness Encounter Date Complaint History Of Prese nt Illness glaucoma, pressure check The 88 year old patient presents for a 4 month POAG ou IOP check. Patient is using drop as directed. Patient denies any changes in vision ou. glaucoma, pressure check The 88 year old patient presents for evaluation of glaucoma, pressure check in the right eye and left eye. Monitoring POAG OU and Drusen OU. Pt reports good compliance with IOP gtts. Pt feels like things are stable and no change since last visit. Reports OS still has blank spot in viison. Complete Exam The 88 year old patient presents for evaluation of 4 month Complete Exam in the right eye and left eye. Monitoring POAG OU, pt reports good compliance with gtt. Pt states he feels like vision is stable since last visit. Pt states he is having a flicker of light that looks like white lighting OU, sometimes starts in one eye and moves to the other, states this happens often. Pt states he was having the lighting flash OD when he sat down in the chair but it went away shortly after beginning the exam. Pt states he has single floaters that come on, and denies any burst of floaters or curtains. glaucoma, pressure check The 87 year old patient presents for evaluation of 3-4 month POAG IOP check in the right eye and left eye. Pt denies any changes since last visit. Pt using Latanoprost qHS OS. glaucoma, pressure check The 87 year old patient presents for a 6 month POAG ou IOP check. Patient is using Latanoprost qhs os. Patient has hx of BRVO OS and is pseudo ou with yag cap OS. Patient denies any changes in vision ou. 6 month Complete The 86 year old patient presents for evaluation of 6 month Complete in the right eye and left eye. Patient denies any problems or changes with eyes. Patient using Jemima qd OS last used last night. No refills needed. glaucoma, pressure check The 86 year old patient presents for a 4 month POAG ou IOP check. Patient is using Latanoprost qhs os. Patient has hx of BRVO OS. Patient is pseudo ou with yag cap OS. Patient states sometimes his vision is foggy and then he blinks and it goes away. 6 mo IOP check The 86 year old patient presents for evaluation of 6 mo IOP check with OCT-ON and Optomap in the right eye and left eye. Hx of PCIOL OU, YAG PC OS, Trace PCO OD, POAG OU, PVD OU, RPE OD, and Dermatochalasis OU. Pt reports she is using Latanoprost QHS OS only (11 pm last night). Pt reports stable VA, OU, DV and NV, since last appt. 6 month Complete w/VF The 85 yea r old male presents for evaluation of 6 month Complete w/VF in the right eye and left eye. Hx of PCIOL OU, YAG PC OS, BRVO OS, POAG OU, and RPE Mottling OD. Patient denies any problems or changes with eyes. VA seems stable OU. Patient using Jemima qd OS last used last night. 6 month IOP check The 84 year ol d male presents for evaluation of 6 month IOP check in the right eye and left eye. Hx of PCIOL OU, YAG PC OS, BRVO OD, PVD OD, POAG OU, and RPE mottling OD. Patient denies any problems or changes with VA. Patient using Jemima qd OS last used @ 11pm, no refills needed. 6 month Complete w/VF The 84 yea r old male presents for evaluation of 6 month Complete w/VF in the right eye and left eye. Hx of PCIOL OU, YAG PC OS, BRVO OS, and POAG OU. Patient denies any changes with eyes. Patient using Jemima qd OS last used @ 11pm, no refills needed today. IOP Check The 83 year old male presents for evaluation of IOP Check in the right eye and left eye. Hx PCIOL OU, Yag PC OS, BRVO OS, POAG OU. Pt reports stable vision with OTC readers for near. Pt reports taking Latanoprost qHS OS (11:00pm). He does not know if he needs refills. glaucoma, pressure check The 83 year old male presents for a 8 month POAG ou IOP check. Patient is pseudo ou with yag cap OS. Patient has hx of BRVO OS. Patient uses Latanoprost qhs OS. Patient denies any changes in vision ou. Post-Op The 82 year old male presents for a 3 week post op yag pc OS. Patient states OS vision is better and vision is brighter OS. Patient uses Latanoprost qhs os. Complete Exam The 82 year old male presents for a complete POAG ou IOP check. Patient is using Latanoprost qhs ou. Patient states OS vision seems a little worse. 3 mo IOP check The 81 year old male presents for evaluation of 3 mo IOP check in the right eye and left eye. Hx of PCIOL OU, PCO OU, POAG OU, and BRVO OS. Pt reports he is using Latanoprost QHS OU and last used it at 11 pm last night. Pt denies any changes in VA, OU, since last appt. Pt denies any pain, irritation or discomfort today, OU. IOP Check The 81 year old male presents for IOP Check in the right eye and left eye. Hx PCIOL OU, BRVO OS, Opacified Capsule OU, POAG OU, Venous Tributary Occlus. Pt currently using Latanoprost QHS OS, used last night. Pt states vision seems to be the same, has not noticed any changes. Pt denies any pain or discomfort at this time. 6 month Pressure check The 81 ye ar old male presents for 6 month Pressure check in the right eye and left eye. Hx PCIOL OU, BRVO OS, PCF OU, POAG OU. Pt states no changes since his last exam. Pt states he is not using gtts, pt stopped Timolol Sat. after his PCP told him it could be the cause of his heart issues. Complete Exam The 81 year old male presents for Complete Exam in the right eye and left eye. + HVF 24-2 and ON OCT. Hx fo PC IOL OU, PCF OU, POAG OU, and BRVO OS. Pt using Timolol OS qam. Pt states in general he has no VA complaints. Today how ever Va is slighty foggy after having an episode of irregular hear beat. These episodes happen occasionally and his vision gets foggy every time and last for approximatly 24 hrs. Pt ran out of heart Meds and is in the process of finding a new med to get heart beat under controll. Pt states pacemaker is not very effective. 4 month IOP check. The 80 year o ld male presents for 4 month IOP check. Patient has hx of POAG OU ( Severe stage OS, Mild stage OD). Patient uses Timolol QD OS. He reports stable vision OU. Patient denies pain, discomfort or irritation OU. 1 month IOP check The 80 year ol d male presents for evaluation of 1 month IOP check. Pt currently using Timolol QD OS. Pt has no VA complaints OU. 2 month IOP check, H VF 24-2, pachs, ON OCT The 80 year old male presents for evaluation of 2 month IOP check, HVF 24-2, pachs, ON OCT. Pt. states that vision is stable and doing well since her last visit. Pt. denies any pain or discomfort at this time. Pt. is not currently using any eye drops at this time. Complete IOL check The 79 year o ld male presents for a Complete IOL check in the right eye and left eye. Patient denies any problems or changes with VA since he was here last. Difficulty reading Patient prese nts for a complete IOL check. Patient wears OTC. Patient denies any changes in vision. Functional Status Date Functional Assessmen t No Information Instructions Date Instruction Additional Infor mation Impression/Plan Impression/Plan Impression/Plan Impression/Plan Impression/Plan Impression/Plan Impression/Plan Impression/Plan Impression/Plan Impression/Plan Impression/Plan Impression/Plan Impression/Plan RTC in november as scheduled or soon er prn Related to Encounter for examination following surgery Impression/Plan Related to Encou nter for examination following surgery Impression/Plan Educational material provided Re lated to Primary open-angle glaucoma, left eye, severe stage Educational material provided Re lated to Primary open-angle glaucoma, right eye, mild stage Impression/Plan Educational material provided Re lated to Primary open-angle glaucoma, left eye, severe stage Return in 3 months camille Prieto M.D. for IOP check. Related to Primary open-angle glaucoma, left eye, severe stage Impression/Plan - Go od IOP response to Latanoprost QHS OS. Patient tolerating drops well, continue same regimen. Refills sent to [facility]. Return in 3 months for IOP check or sooner with problems. Letter sent to Dr Schaefer. Related to Primary open-angle glaucoma, left eye, severe stage Follow up - Return i n 3 months with Mary Prieto M.D. for IOP check. Related to Primary open-angle glaucoma, left eye, severe stage Primary open-angle g laucoma, right eye, mild stage - Educational material provided Related to Primary open-angle glaucoma, right eye, mild stage Primary open-angle g laucoma, right eye, mild stage - Educational material provided Related to Primary open-angle glaucoma, right eye, mild stage Follow up - 4-6 weeks for IOP ch juliette Impression/Plan - Di scussed exam findings with patient. Stop Timolol due to recommendation of PCP due to risks of heart problems. Start Latanoprost QHS OU, erx to [facility]. Return to clinic in 4-6 weeks for IOP check or sooner with problems. Follow up - 6 months for IOP lovely ck Impression/Plan - Di scussed diagnosis in detail with patient. IOL's in good position, pcf ou. Discussed Yag pc as treatment. Intraocular pressure well controlled, tolerating medications. Will continue with same regimen. Pt states he has history of increased heart rate. Advised pt to discuss with PCP. Continue Timolol QAM OS. Refills not needed at this time. No change OCT ON and visual horn OU. Return to clinic in 6 months for IOP check or sooner with any problems. Primary open-angle g laucoma, left eye, severe stage - Educational material provided Related to Primary open-angle glaucoma, left eye, severe stage Impression/Plan - In traocular pressure well controlled, tolerating medications. Will continue with same regimen. Return to clinic in 7 months for complete exam with IOP check and 24-2 visual horn and OCT ON or sooner with any problems. Primary open-angle g laucoma, left eye, severe stage - Educational material provided Related to Primary open-angle glaucoma, left eye, severe stage Follow up - Return i n 7 months with Tesfaye Deutsch M.D. for Complete Exam , IOP check , Visual Field (24-2) , OCT (ON). Follow up - Return i n 4 months with Tesfaye Deutsch M.D. for IOP check. 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 Will continue with same regimen. Return to clinic in 4 months for IOP check or sooner with any problems. 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 I recommend glaucoma treatment OS only at this time. Pt understands glaucoma drops could stop progression of defects. Pt understands even thought IOP is not that high, maintaining lower IOP is the goal. Start Timolol 0.5% QAM OS. Erx to [facility]. Return to clinic in 1 month for IOP check or sooner with any problems. Follow up - Return i n 1 month with Tesfaye Deutsch M.D. for IOP check. Pseudophakia of both eyes - Educational material given Related to Pseudophakia of both eyes Follow up - Return i n 2 months with Tesfaye Deutsch M.D. for IOP check , Visual Field (24-2). Impression/Plan - IO L in good position. Patient aware hx of BRVO can cause glaucoma. Discussed cupping OU with patient. IOP normal. Return to clinic in 2 months for IOP check afternoon appt, with 24-2 visual horn, OCT ON and pachs. 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
--- NOTE | 2024-09-12 17:29 | ED_ITS ---
HPI - Wound/Laceration General Chief Complaint: Wound/Laceration Stated Complaint: LACERATION Time Seen by Provider: 09/12/24 17:28 Source: patient Mode of arrival: ambulatory Limitations: no limitations History of Present Illness HPI narrative: patient is 88-year-old male with a significant past medical history that presents today with a large skin Wound to left hand. Patient was going down stairs and got his hand caught and it ripped in between the web of his 1st and 2nd finger open and the skin was completely retracted. Is retracted up to a ball. There is a way to reattach the skin and is not Stitchesable or gluable. Onset (ago): hour(s) Location: other ( left hand) Extremity Location: Left: hand Place: home Patient tetanus UTD: No Context: accidental Associated symptoms: none Treatments prior to arrival: bandage Related Data Home Medications ?Medication ?Instructions ?Recorded ?Confirmed ?Last Taken ?Type Centrum Silver 1 tablet PO ONCE 05/01/20 08/18/22 Unknown History Co Q-10 200 mg PO ONCE 05/01/20 08/18/22 Unknown History Osteo Bi-Flex 1 tablet PO ONCE 05/01/20 08/18/22 Unknown History aspirin 325 mg PO ONCE 05/01/20 08/18/22 Unknown History atorvastatin 20 mg tablet 20 mg PO ONCE 05/01/20 08/18/22 Unknown History metoprolol tartrate 50 mg tablet 25 mg PO BID 05/01/20 08/18/22 Unknown History warfarin 4 mg tablet 4 mg PO ONCE 05/01/20 08/18/22 Unknown History latanoprost 0.005 % eye drops 1 drp LEFT EYE DAILY 08/18/22 08/18/22 Unknown History Allergies Allergy/AdvReac Type Severity Reaction Status Date / Time clindamycin Allergy Rash Verified 05/01/20 15:17 Penicillins Allergy Hives Verified 05/01/20 15:17 Tetanus Vaccines and Toxoid Allergy Abdominal Verified 05/01/20 15:17 Pain Review of Systems Review of Systems: All systems reviewed & are unremarkable except as noted in HPI and below Constitutional: Constitutional: Reports as per HPI Eyes: Eyes: Reports no additional eye complaints ENT: Reports system reviewed and no additional complaints, except as documented Cardiovascular: Cardiovascular: Reports no additional cardiovascular complaints Respiratory: Respiratory: Reports no additional respiratory complaints Gastrointestinal: Gastrointestinal: Reports no additional gastrointestinal complaints Genitourinary: Genitourinary: Reports no additional male genitourinary complaints Musculoskeletal: Musculoskeletal: Reports no additional musculoskeletal complaints Integumentary/Breasts: Skin/Breast: Reports as per HPI Comments: large skin abrasion/ wound to left hand Neurologic: Reports system reviewed and no additional complaints, except as documented Psychiatric: Psychiatric: Reports no additional psychiatric complaints Endocrine: Endocrine: Reports no additional endocrine complaints Hematologic/Lymphatic: Hematologic/Lymphatic: Reports no additional hematologic/lymphatic complaints Allergic/Immunologic: Allergic/Immunologic: Reports no additional allergic/immunologic complaints [facility] Past Medical History Medical History Glaucoma Hyperlipidemia Hypertension Atrial fibrillation Surgical History Surgical History Hx of cataract surgery History of hip surgery bilateral Adrenal tumor History of hernia surgery Social History Social History Smoking status: Former smoker Alcohol intake: never Substance use: never Living arrangements: with family Exam Const: General: healthy appearing Nutritional Appearance: well nourished Orientation/consciousness: patient oriented x3 HENMT: Head: normal to inspection Ears: external ears normal Face/Nose/Sinus: Normal external nose present Face and sinus: normal facial exam Mouth: Yes Normal oral and palatal mucosa present Eyes: Conjunctivae: conjunctivae normal Pupils: Equal, round and reactive pupils present EOM: EOMs intact bilaterally Neck: Neck: normal visual inspection Chest: Chest palpation & inspection: normal inspection of the chest Resp: Effort & Inspection: normal respiratory effort Auscultation: clear to auscultation bilaterally Cardio: Rate: regular rate Rhythm: regular rhythm GI: GI Palp: Yes Soft to palpation Back/Spine/Pelvis: Back: no CVA tenderness Skin: General skin exam: normal color Rashes: no rashes Wounds: wounds noted ( large wound on left hand in the webspace between the 1st and 2nd finger) Other: skin is torn and retracted Neuro: General: patient oriented x3 Cranial nerves: Yes Nystagmus not present Speech: normal speech Gait exam (Neuro): Normal gait present Extrem: General: normal to inspection Psych: Mental Status: mental status grossly normal Affect: normal affect Attitude: cooperative Course Vital Signs Vital signs: Vital Signs Temperature 97.8 F 09/12/24 17:08 Pulse Rate 60 09/12/24 17:08 Respiratory Rate 18 09/12/24 17:08 Blood Pressure 186/87 H 09/12/24 17:08 Pulse Oximetry 99 09/12/24 17:08 Oxygen Delivery Room Air 09/12/24 17:08 Temperature 97.8 F 09/12/24 17:08 Pulse Rate 60 09/12/24 17:08 Respiratory Rate 18 09/12/24 17:08 Blood Pressure 186/87 H 09/12/24 17:08 Pulse Oximetry 99 09/12/24 17:08 Oxygen Delivery Room Air 09/12/24 17:08 MDM - Wound/Laceration MDM Narrative Medical decision making narrative: the skin is completely torn and retracted back to the webspace between the 1st and 2nd fingers. There is no way to states this or to lose this. He will need extensive wound care for this. I extensively cleaned the wound and dress the wound extensively and sent to Wound Care. Differential Diagnosis Differential diagnosis: Likely abrasion and avulsion of skin Medical Records Attestation: I reviewed the patient's medical records. Discharge Plan Discharge Clinical Impression: Avulsion of skin, Abrasion Patient Disposition: Home Condition: Stable Instructions: Antibiotic Form, Abrasion (ED) Patient Language: Wallisian Prescriptions: New doxycycline hyclate 100 mg tablet 100 mg PO BID Qty: 20 0RF No Action atorvastatin 20 mg tablet 20 mg PO ONCE warfarin 4 mg tablet 4 mg PO ONCE metoprolol tartrate 50 mg tablet 25 mg PO BID Rx Instructions: 25mg in the morning and 50mg in the evening Centrum Silver 1 tablet PO ONCE Co Q-10 200 mg PO ONCE Osteo Bi-Flex tablet 1 tablet PO ONCE aspirin 325 mg PO ONCE latanoprost 0.005 % drops 1 drp LEFT EYE DAILY hydrocodone-acetaminophen 5-325 mg tablet 1 tablet PO Q6H PRN (Reason: pain) 4 Days Qty: 16 0RF Follow-up/Referrals: Silvano,Blade Oakes MD [Primary Care Provider] - Time of Disposition: 17:37
--- OUTSIDE RECORDS SUMMARY | 2024-09-12 17:32 | XMS_ITS | Encounter Summary ---
Author Organization [facility] Address [address] [place] [address] Phone Care Team Providers Care Classroom Technology Coach Name Role Phone Blade Schaefer MD Primary Care Provider [phone] Amor Graham MD Unavailable [phone] Catia Martinez PAC Unavailable [phone] Liban Mary MD Unavailable [phone] Reason for Visit * Reason Comments Medication Refill Encounter Details Date Type Department Care Team (Late st Contact Info) Description 12/30/2022 Refill [facility] - Primary Care - [place] [address] [place] [address] Blade Schaefer MD [address] [place] [address] Medication Refill Social History Tobacco [...] Dept 12/14/22 Office Visit Blade Schaefer MD [facility] 06/15/22 Office Visit Blade Schaefer MD [facility] Showing recent visits within past 365 [...] Dept 12/14/22 Office Visit Blade Schaefer MD [facility] 06/15/22 Office Visit Blade Schaefer MD [facility] Showing recent visits within past 365 [...] Description 12/28/2024 11:00 AM CDT Office Visit [facility] - Primary Care - [place] [address] [place] [address] Blade Schaefer MD [address] [place] [address] documented as of this encounter Visit Diagnoses Not on filedocumented in this encounter Additional Health Concerns Assessment Noted Time PHQ-9 Depression Total Score: 0 06/11/19 21 8:00 AM 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 documented as of this encounter Care Teams Classroom Technology Coach Relationship Specialty Start Date End Date Blade Schaefer MD [address] [place] [address] PCP - General Internal Medicine 04/16/17 Amor Graham MD [address] [facility] [place] [address] Consulting Physician Cardiovascular Disease - Cardiology 04/16/17 Catia Martinez PAC [address] [facility] [place] [address] Physician Garment Finisher Orthopaedic Surgery 12/09/20 Liban Mary MD [address] [place] [address] Consulting Physician Ophthalmology 06/11/21 12/26/23 Mary Prieto MD Consulting Physician Ophthalmology 05/06/17 Oxana Daniel OD Consulting Physician Optometry 12/27/23 documented as of this encounter
--- OUTSIDE RECORDS SUMMARY | 2024-09-12 17:32 | XMS_ITS | Clinical Summary ---
Author Organization [facility] Address [address] [place] [address] Care Team Providers Care Poultry Offal Worker Name Role Phone Blade Schaefer MD Primary Care Provider + Allergies Active Allergy Reactions Criticality Noted Date Comments Clindamycin Hives Medium 12/28/2016 Penicillins Tetanus Vaccines And Toxoid Medications omega-3 fatty acids-fish oil 340-1,000 mg capsule 0 0 Active rg-jhf-efouv acid-lutein (CENTRUM SILVER) 400-250 mcg tablet,chewabl e [...] Description 09/05/2024 8:15 AM CDT Ancillary Procedure [place] Pharmacovigilance Scientist [address] [place] [id number] SSS (sick sinus syndrome) (HCC); Atrial [...] on file Legal Sex Male 12:36 AM 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 Gender Identity Not on file Sexual Orientation Not on file Obstetrics History Last Filed Vital Signs Vital Sign Reading Time Taken Comments Blood Pressure 152/68 06/08/2024 10:46 AM 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 Pulse 70 06/08/2024 10:46 AM 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 Temperature 36.7 C (98.1 F) 04/17/2021 11:01 AM 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 Respiratory Rate 18 06/08/2024 10:46 AM 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 Oxygen Saturation 95% 04/30/2022 11:47 AM 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 Inhaled Oxygen Concentration - - Weight 77.1 kg (170 lb) 06/08/2024 10:46 AM 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 Height 180.3 cm (5' 11 ) 06/08/2024 10:46 AM 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 Body Mass Index 23.71 06/08/2024 10:46 AM 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 Plan of Treatment Health Maintenance Due Date [...] the original result were not included. 09/05/2024 [place] quarterly remote device check NOTE The following shows snippets from the complete quarterly report. The complete report in its entirety is attached to this Result Text in Test Boring Crew Chief. Presenting EGM Last in-office check 06/08/2024 6 [...] MD Bibiana Graham MD [facility] [place] OC[facility] Final Result from Last 3 Months Insurance [facility] Address: [address] [address] [place] [id number] [employer] MEDICARE ADVANTAGE [facility] Address: [address] [address] [place] [address] [facility] ADVANTAGE [facility] Address: [address] [address] Care Teams Poultry Offal Worker Relationship Specialty Start Date End Date Blade Schaefer MD PCP - General 06/19/19
--- OUTSIDE RECORDS SUMMARY | 2024-09-12 17:32 | XMS_ITS | Encounter Summary ---
Author Organization [facility] Address [address] [place] [address] Phone Care Team Providers Care Magazine Grinder Loader Name Role Phone Blade Schaefer MD Primary Care Provider [phone] Amor Graham MD Unavailable [phone] Catia Martinez [facility] Unavailable [phone] Liban Mary MD Unavailable [phone] Reason for Visit * Reason Comments Medication Refill Encounter Details Date Type Department Care Team (Late st Contact Info) Description 09/28/[address] [facility] - Primary Care - [place] [address] [place] [address] Blade Schaefer MD [address] [place] [address] Medication Refill Social History Tobacco [...] Dept 08/13/23 Office Visit Blade Schaefer MD [facility] 07/29/23 Office Visit Blade Schaefer MD [facility] 06/16/23 Office Visit Blade Schaefer MD [facility] 01/12/23 Office Visit Blade Schaefer MD [facility] 12/14/22 Office Visit Blade Schaefer MD [facility] Showing recent visits within past 365 days and meeting all other requirements Future Appointments Date Type Provider Dept 12/27/23 Appointment Blade Schaefer MD [facility] Showing future appointments within next 90 [...] Description 12/28/2024 11:00 AM CDT Office Visit [facility] - Primary Care - [place] [address] [place] [address] Blade Schaefer MD [address] [place] [address] documented as of this encounter Visit Diagnoses Diagnosis Bilateral hip pain Pain in joint, pelvic region and thigh documented in this encounter Additional Health Concerns Assessment Noted Time PHQ-9 Depression Total Score: 0 06/16/19 24 9:52 AM 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 documented as of this encounter Care Teams Magazine Grinder Loader Relationship Specialty Start Date End Date Blade Schaefer MD [address] [place] [address] PCP - General Internal Medicine 04/16/17 Amor Graham MD [address] [facility] [place] [address] Consulting Physician Cardiovascular Disease - Cardiology 04/16/17 Catia Martinez PAC [address] [facility] [place] [address] Physician Post Hole Digger Orthopaedic Surgery 12/09/20 Liban Mary MD [address] [place] [address] Consulting Physician Ophthalmology 06/11/21 12/26/23 Mary Prieto MD Consulting Physician Ophthalmology 05/06/17 Oxana Daniel OD Consulting Physician Optometry 12/27/23 documented as of this encounter
--- OUTSIDE RECORDS SUMMARY | 2024-09-12 17:32 | XMS_ITS | Continuity of Care Document ---
Author Organization [facility] Address [address] [place] [address] Phone Care Team Providers Care Legal Cashier Name Role Phone María RICHARDS, Oxana Unavailable [...] Providers Copied on Encounter Office/[place]pa [place], [facility] [place] [address], [place], [place], [address], tel:[phone] SEC Dez RAYA Professional glaucoma, pressure check (chief complaint) Primary open-angle glaucoma, left eye, severe stagePrimary open-angle glaucoma, right eye, mild stagePseudoph emily of both eyesOther secondary cataract, right eyeDrusen (degenerative ) of macula, bilateralStab le branch retinal vein occlusion of left eyeHypertensi ve retinopathy of both eyes 5 Mraía Daigle. [address], [address], [place], [place], [address], [place]. tel:[phone] Office/outpa [place]ient Visit, [facility] [place] [address], [place], [place], [address], tel:[phone] SEC Dez RAYA Professional glaucoma, pressure check (chief complaint) Primary open-angle glaucoma, left eye, severe stagePrimary open-angle glaucoma, right eye, mild stagePseudoph emily of both eyesOther secondary cataract, right eyeDrusen (degenerative ) of macula, bilateralStab le branch retinal vein occlusion of left eyeHypertensi ve retinopathy of both eyes Oct-2 4 María OD Oxana. [facility] [address], [address], [place], [place], [address], . tel:[phone] [facility], [address] [place] [address] [address], [place], [place], [address], [phone] SEC Dez RAYA Professional Complete Exam (chief complaint) Primary open-angle glaucoma, left eye, severe stagePrimary open-angle glaucoma, right eye, mild stagePseudoph emily of both eyesOther secondary cataract, right eyeVitreous degeneration, bilateralDrus en (degenerative ) of macula, bilateralStab le branch retinal vein occlusion of left eye Enrike- 4 María OD Oxana. [facility] [employer], [address], [place], [place], [address], . tel:[phone] Office/outpa [place]ient Visit, [facility] [place] [address], [place], [place], [address], [phone] SEC Dez RAYA Professional glaucoma, pressure check (chief complaint) Primary open-angle glaucoma, left eye, severe stagePrimary open-angle glaucoma, right eye, mild stagePseudoph emily of both eyesOther secondary cataract, right eye Fe-0 4 María OD Oxana. [facility] [employer], [address], [place], [place], [address], [place]. tel:[phone] Office/outpa [place]ient Visit, [facility] [place] [address] [place], [place] [address] [address], [place], [place], [address], tel:+ SEC Dez RAYA Professional glaucoma, pressure check (chief complaint) Primary open-angle glaucoma, left eye, severe stagePrimary open-angle glaucoma, right eye, mild stagePseudoph emily of both eyesOther secondary cataract, right eye Oct- 3 María Daigle. [address] [place] [address], [address], [place], [place], [address], . tel:[phone] [facility], [address] [place] [address] [address], [place], [place], [address], [place] tel:[phone] SwimTopiajerri RAYA Professional No Information Sep-2 3 Usman Louie. [address], [facility] [place], [address], [place]. tel:[phone] [facility], [address] [place] [address] [address], [place], [place], [address], tel:[phone] Tempeest eDz RAYA Professional 6 month Complete (chief complaint) Primary open-angle glaucoma, left eye, severe stagePrimary open-angle glaucoma, right eye, mild stagePseudoph emily of both eyes Apr- 3 Usman Louie. [address], [address], [place], [place], [address], [place]. tel:[phone] Office/outpa [place]ient Visit, [facility] [place] [address] [place] [address] [address], [place], [place], [address], [place] tel:[phone] Tempeest Dez RAYA Professional glaucoma, pressure check (chief complaint) Primary open-angle glaucoma, left eye, severe stagePrimary open-angle glaucoma, right eye, mild stagePseudoph emily of both eyes Oct- 2 Usman Louie. [address], [address] [place], [address], [place]. tel:[phone] Office/outpa tient Visit, [facility], [address] [place] [address] [address], [place], [place], [address], tel:[phone] SEC Mobiveil Professional 6 mo IOP check (chief complaint) Primary open-angle glaucoma, left eye, severe stagePrimary open-angle glaucoma, right eye, mild stagePseudoph emily of both eyes 2 María OD Oxana. [address] [place] [address], [address], [place], [place], [address], . tel:[phone] [facility], [address] [place] [address] [address], [place], [place], [address], tel:[phone] SEC Mobiveil Professional 6 month Complete w/VF (chief complaint) Primary open-angle glaucoma, right eye, mild stagePrimary open-angle glaucoma, left eye, severe stagePseudoph emily of both eyesStable branch retinal vein occlusion of left eye 1 Usman Louie. [address], [facility] [place], [address], [place]. tel:[phone] Office/outpa tient Visit, [facility], [address] [place] [address] [address], [place], [place], [address], [phone] CeQur Professional 6 month IOP check (chief complaint) Primary open-angle glaucoma, right eye, mild stagePrimary open-angle glaucoma, left eye, severe stage Mar-0 1 Usman Louie. [address], [address], [place], [place], [address], [place]. tel:[phone] [facility], [address] [place] [address] [address], [place], [place], [address], [phone] SEC Mobiveil Professional 6 month Complete w/VF (chief complaint) Primary open-angle glaucoma, right eye, mild stagePrimary open-angle glaucoma, left eye, severe stagePseudoph emily of both eyesOther secondary cataract, right eyeVitreous degeneration, right eyeRPE mottling of macula Sep-0 -202 0 Usman Louie. [address], [address], [place], [place], [address], [place]. tel:[phone] Office/outpa tient Visit, [facility], [address] [place] [address] [address], [place], [place], [address], [place] tel:[phone] SEC Dez RAYA Professional IOP Check (chief complaint) Primary open-angle glaucoma, left eye, severe stagePrimary open-angle glaucoma, right eye, mild stage Feb-1 0-202 0 Usman Louie. [address], [address], [place], [place], [address], [place]. tel:[phone] Office/outpa [place]ient Visit, [facility] [place] [address] [place] [address] [address], [place], [place], [address], [place] [phone] SEC Dez RAYA Professional glaucoma, pressure check (chief complaint) Primary open-angle glaucoma, left eye, severe stagePrimary open-angle glaucoma, right eye, mild stage Oct-0 2- 9 Starla OD Nile. [address] [place] [address], [address] [place] [address], [place], [address], [place]. tel:[phone] [facility], [address] [place] [address] [address], [place], [place], [address], [place] [phone] SEC Dez RAYA Professional Post-Op (chief complaint) Encounter for examination following surgery 0-201 9 Starla OD Nile. [facility], [address] [facility], [place], [address], [place]. tel:[phone] [facility], [address] [place] [address] [address], [place], [place], [address], [place] [phone] SEC Dez RAYA Professional Complete Exam (chief complaint) Primary open-angle glaucoma, right eye, mild stagePrimary open-angle glaucoma, left eye, severe stagePseudoph emily of both eyesOther secondary cataract, bilateral 9 Usman Louie. [address] [facility], [address], [place], [place], [address], [place]. tel:[phone] [facility], [address] [place] [address] [address], [place], [place], [address], [place] tel:[phone] SEC Brandon [place] Professional No Information 9 Usman Louie. [address] [facility], [facility] A, [place], [place], [address], [place]. tel:[phone] Office/outpa tient Visit, [facility], [address] [place] [address] [address], [place], [place], [address], [place] tel:[phone] SEC Dez [place] Professional 3 mo IOP check (chief complaint) No Information 8 Ida Hernandez. [address] [place], [address], [place]. tel:[phone] Office/outpa tient Visit, [facility], [address], [place], [place], [address], [place] tel:[phone] SEC Brandon [place] Professional IOP Check (chief complaint) No Information 7 Ida Hernandez. [address] [place], [address], [place]. tel:[phone] Office/outpa tient Visit, [facility], [address] [place] [address] [address], [place], [place], [address], [place] tel:[phone] SEC Brandon [place] Professional 6 month Pressure check (chief complaint) No Information 7 Ida Hernandez. [address] [place], [address], [place]. tel:[phone] [facility], [address], [place], [place], [address], [place] tel:[phone] SEC [place] Professional Complete Exam (chief complaint) No Information 7 La Nena Carlin. [address], [address], [place], [place], [address], [place]. tel:[phone] Office/outpa tient Visit, [facility], [address] [place] [address] [address], [place], [place], [address], [place] tel:[phone] SEC Dez RAYA Professional 4 month IOP check. (chief complaint) No Information Feb-3 6 La Nena Carlin. [address], [address], [place], [place], [address], [place]. tel:[phone] Office/outpa tient Visit, [facility], [address] [place] [address] [address], [place], [place], [address], [place] tel:[phone] SEC Dez RAYA Professional 1 month IOP check (chief complaint) No Information 6 La Nena Carlin. [address], [address], [place], [place], [address], [place]. tel:[phone] Office/outpa tient Visit, [facility], [address] [place] [address] [address], [place], [place], [address], [place] tel:[phone] SEC Dez RAYA Professional 2 month IOP check, HVF 24-2, pachs, ON OCT (chief complaint) No Information - 6 La Nena Carlin. [address], [address], [place], [place], [address], [place]. tel:[phone] [facility], [address] [place] [address] [address], [place], [place], [address], [place] tel:[phone] SEC Dez RAYA Professional Complete IOL check (chief complaint) No Information 6 La Nena Carlin. [address], [address], [place], [place], [address], [place]. tel:[phone] [facility], [address], [place], [place], [address], [place] tel:[phone] SEC Dez EL[place] Professional Difficulty reading (chief complaint) No Information Feb-0 1-201 4 Wankum Tesfaye. [address], [address], [place], [place], [address], [place]. tel:[phone] [facility], [address], [place], [place], [address], [place] tel:[phone] SEC Dez RAYA Professional No Information Nov-0 8-201 3 Wankum Tesfaye. [address], [address], [place], [place], [address], [place]. tel:[phone] [facility], [address], [place], [place], [address], [place] tel:[phone] SEC Dez RAYA Professional No Information Nov-0 3-201 3 Wankum Tesfaye. [address], [place], [address], [place]. tel:[phone] [facility], [address], [place], [place], [address], [place] tel:[phone] SEC Dez RAYA Professional No Information September-1 6-201 2 Wankum Tesfaye. [address], [address] [place], [address], [place]. tel:[phone] [facility], [address], [place], [place], [address], [place] tel:[phone] SEC Brandon ELVER Professional No Information May-1 2-201 1 Wankum Tesfaye. [address], [place], [address], [place]. tel:[phone] Referring Provider: Tesfaye Swann, [address], [place], [address] . tel:[phone] [facility], [address], [place], [place], [address], tel:[phone] SEC [place] Professional No Information Apr-2 9 1 La Nena Carlin. [address], [place], [place], [address], [place]. tel:[phone] Referring Provider: Tesfaye Swann, [address], [place], [address] . tel:[phone] [facility], [address], [place], [place], [address], [place] tel:[phone] [facility] [address] [facility] No Information Apr-2 8 1 [place] Ashish. [address], [address], [place], [place], [address], [place]. tel:[phone] Referring Provider: Tesfaye Swann, [address], [place], [address] . tel:[phone] [facility], [address], [place], [place], [address], [place] tel:[phone] SEC Lisa Jerri [facility] No Information Apr-2 1 Antionette Ashish. [address], [address], [place], [place], [address], [place]. tel:[phone] [facility], [address], [place], [place], [address], [place] tel:[phone] SEC [place] Professional No Information Apr-2 0-201 1 La Nena Carlin. [address], [place], [place], [address], [place]. tel:[phone] [facility], [address], [place], [place], [address], [place] tel:[phone] SEC Dez ELVER Professional No Information Apr-0 6-201 1 Stanleymakayla Carlin. [address] [facility], [address], [place], [place], [address], [place]. tel:[phone] [facility], [address], [place], [place], [address], [place] tel:[phone] [facility] No Information Apr-0 5- 1 Antionette Ashish. [address], [address], [place], [place], [address], [place]. tel:[phone] [facility], [address], [place], [place], [address], [place] tel:[phone] SEC Lisa Felix No Information Apr-0 4- 1 [place] Ashish. [address], [address], [place], [place], [address], [place]. tel:[phone] Office/outpa tient Visit, [facility], [address], [place], [place], [address], [place] tel:[phone] SEC Brandon ELVER Professional No Information Mar-0 8- 1 Antionette Ashish. [address], [address], [place], [place], [address], [place]. tel:[phone] Family History Family Member Type Diagnosis Age At Onset Problem (finding) Family history of hyper tension Payers Payer name Insurance type Covered alliance party ID Aneudy mannyash(s) [facility] Mdcr Adv CI [id number] Social History Type Description Quantity Date Captured [...] Primary open-angle glaucoma, right eye, mild stage Educational material provided Re lated to Primary open-angle glaucoma, left eye, severe stage Impression/Plan Educational material provided Re lated to Primary open-angle glaucoma, left eye, severe stage Return in 3 months w peri Prieto M.D. for IOP check. Related to Primary open-angle glaucoma, left eye, severe stage Primary open-angle g laucoma, right eye, mild stage - Educational material provided Related to Primary open-angle glaucoma, right eye, mild stage Follow up - Return i n 3 months with Mary Prieto M.D. for IOP check. Related to Primary open-angle glaucoma, left eye, severe stage Impression/Plan - Go od IOP response to Latanoprost QHS OS. Patient tolerating drops well, continue same regimen. Refills sent to [facility]. Return in 3 months for IOP [...] problems. Start Latanoprost QHS OU, [facility] Return to clinic in 4-6 weeks [...] with Tesfaye Deutsch M.D. for IOP check. 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 I recommend glaucoma treatment OS only at this time. Pt understands glaucoma drops could stop progression of defects. Pt understands even thought IOP is not that high, maintaining lower IOP is the goal. Start Timolol 0.5% QAM OS. Erx to [facility]. Return to clinic in 1 month for IOP check or sooner with any problems. 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
--- OUTSIDE RECORDS SUMMARY | 2024-09-12 17:32 | XMS_ITS | Encounter Summary ---
Author Organization [facility] Address [address] [place] [address] Phone Care Team Providers Care Drum Filler Name Role Phone Blade Schaefer MD Primary Care Provider [phone] Amor Graham MD Unavailable [phone] Catia Martinez Unavailable [phone] Liban Mary MD Unavailable Reason for Visit * Reason Onset Date Comments Medication Refill Medication Refill 12/15/2019 Encounter Details Date Type Department Care Team (Late st Contact Info) Description 12/11/2019 Refill [facility] [address] [place] [address] Vicente Castaneda, RIGOBERTO Medication Refill; [...] 12/28/2024 11:00 AM CDT Office Visit [facility] - [facility] - [place] [address] [place] [address] Blade Schaefer MD [address] [place] [address] documented as of this encounter Visit Diagnoses Not on filedocumented in this encounter Additional Health Concerns Assessment Noted Time PHQ-9 Depression Total Score: 0 11/15/19 20 9:00 AM CDT documented as of this encounter Care Teams Drum Filler Relationship Specialty Start Date End Date Blade Schaefer MD [address] [place] [address] PCP - General Internal Medicine 04/16/17 Amor Graham MD [address] [place] [address] Consulting Physician Cardiovascular Disease - Cardiology 04/16/17 Catia Martinez PAC [address] [facility] [place] [address] Physician Antenna Engineer Orthopaedic Surgery 12/09/20 Liban Mary MD [address] [place] [address] Consulting Physician Ophthalmology 06/11/21 12/26/23 Mary Prieto MD Consulting Physician Ophthalmology 05/06/17 Oxana Daniel OD Consulting Physician Optometry 12/27/23 documented as of this encounter
--- OUTSIDE RECORDS SUMMARY | 2024-09-12 17:32 | XMS_ITS | Referral Summary ---
Author Organization [facility] Address [address] [place] [address] Care Team Providers Care Dough Raiser Name Role Phone Blade Schaefer MD Primary Care Provider + Encounters Date Type Department Care Team Description 09/05/2024 8:15 AM CDT Ancillary Procedure Cuney Temperature Control Inspector [address] [place] [id number] SSS (sick sinus syndrome) (HCC); Atrial fibrillation, unspecified type (HCC); Presence of cardiac pacemaker from Last 3 Months Allergies Active Allergy Reactions Criticality Noted Date Comments Clindamycin Hives Medium 12/28/2016 Penicillins Tetanus Vaccines And Toxoid Medications omega-3 fatty acids-fish oil 340-1,000 mg capsule 0 0 Active kd-afm-mvcal acid-lutein (CENTRUM SILVER) 400-250 mcg tablet,chewabl e [...] on file Legal Sex Male 12:36 AM DOUGH RAISER Gender Identity Not on file Sexual Orientation Not on file Last Filed Vital Signs Vital Sign Reading Time Taken Comments Blood Pressure 152/68 06/08/2024 10:46 AM DOUGH RAISER Pulse 70 06/08/2024 10:46 AM DOUGH RAISER Temperature 36.7 C (98.1 F) 04/17/2021 11:01 AM DOUGH RAISER Respiratory Rate 18 06/08/2024 10:46 AM DOUGH RAISER Oxygen Saturation 95% 04/30/2022 11:47 AM DOUGH RAISER Inhaled Oxygen Concentration - - Weight 77.1 kg (170 lb) 06/08/2024 10:46 AM DOUGH RAISER Height 180.3 cm (5' 11 ) 06/08/2024 10:46 AM DOUGH RAISER Body Mass Index 23.71 06/08/2024 10:46 AM DOUGH RAISER Plan of Treatment Not on file Procedures [...] is attached to this Result Text in Consulting Sales Executive. Presenting EGM Last in-office check 06/08/2024 6 [...] MD Bibiana Graham MD CV CARDIAC SERVICES AR OCEDURES Final Result from Last 3 Months Insurance [facility] MED[employer]ARE ADVANTAGE [facility] MEDICARE ADVANTAGE [facility] MED[employer] ADVANTAGE Care Teams Dough Raiser Relationship Specialty Start Date End Date Blade Schaefer MD PCP - General 06/19/19
--- OUTSIDE RECORDS SUMMARY | 2024-09-12 17:32 | XMS_ITS | Encounter Summary ---
Author Organization [facility] Address [address] [place] [address] Phone Care Team Providers Care Frame Polisher Name Role Phone Blade Schaefer MD Primary Care Provider [phone] Amor Graham MD Unavailable Catia Martinez PAC Unavailable [phone] Liban Mary MD Unavailable [phone] Reason for Visit * Reason Comments Medication Refill Encounter Details Date Type Department Care Team (Late st Contact Info) Description 06/11/2020 [facility] [address] [place] [place] [address] Blade Schaefer MD [address] [place] [address] Medication Refill Social History Tobacco [...] COVID-19? No / Unsure 06/11/2020 8:37 AM DIVING JUDGE documented as of this encounter Miscellaneous Notes * Telephone Encounter - Ramandeep Hermosillo RN - 06/11/2020 10:33 AM DIVING JUDGE Medication approved and signed per standing order protocol. NG JUDGE documented in this encounter Plan of Treatment Upcoming Encounters Date Type Department Care Team (Late st Contact Info) Description 12/28/2024 11:00 AM CDT Office Visit [facility] - [facility] - [place] [address] [place] [address] Blade Schaefer MD [address] [place] [address] documented as of this encounter Visit Diagnoses Not on filedocumented in this encounter Additional Health Concerns Assessment Noted Time PHQ-9 Depression Total Score: 0 06/11/19 21 8:00 AM DIVING JUDGE documented as of this encounter Care Teams Frame Polisher Relationship Specialty Start Date End Date Blade Schaefer MD [address] [place] [address] PCP - General Internal Medicine 04/16/17 Amor Graham MD [address] [facility] [address] Consulting Physician Cardiovascular Disease - Cardiology 04/16/17 Catia Martinez PAC [address] [facility] [place] [address] Physician Set Key Driver Orthopaedic Surgery 12/09/20 Liban Mary MD [address] [place] [address] Consulting Physician Ophthalmology 06/11/21 12/26/23 Mary Prieto MD Consulting Physician Ophthalmology 05/06/17 Oxana Daniel OD Consulting Physician Optometry 12/27/23 documented as of this encounter
--- OUTSIDE RECORDS SUMMARY | 2024-09-12 17:32 | XMS_ITS | Encounter Summary ---
Author Organization [facility] Address [address] [place] [address] Phone Care Team Providers Care Dumping Machine Operator Name Role Phone Blade Schaefer MD Primary Care Provider [phone] Amor Graham MD Unavailable [phone] Catia Martinez [facility] Unavailable [phone] Liban Mary MD Unavailable [phone] Reason for Visit * Reason Comments Medication Refill Encounter Details Date Type Department Care Team (Late st Contact Info) Description 06/18/2023 Refill [facility] - Primary Care - [place] [address] [place] [address] Blade Schaefer MD [address] [place] [address] Medication Refill Social History Tobacco [...] prescription was reordered on 04/01/2023. dose changed HEARTH STOCKYARD SUPERVISOR documented in this encounter Plan of Treatment Upcoming Encounters Date Type Department Care Team (Late st Contact Info) Description 12/28/2024 11:00 AM CDT Office Visit [facility] - [place] [facility] - [place] [address] [place] [address] Blade Schaefer MD [address] [place] [address] documented as of this encounter Visit Diagnoses Diagnosis Longstanding persistent atrial fibrillation (HCC) documented in this encounter Additional Health Concerns Assessment Noted Time PHQ-9 Depression Total Score: 0 06/16/19 24 9:52 AM OPEN HEARTH STOCKYARD SUPERVISOR documented as of this encounter Care Teams Dumping Machine Operator Relationship Specialty Start Date End Date Blade Schaefer MD [address] [place] [address] PCP - General Internal Medicine 04/16/17 Amor Graham MD [address] [facility] [place] [address] Consulting Physician Cardiovascular Disease - Cardiology 04/16/17 Catia Martinez PAC [address] [facility] [place] [address] Physician Adult Probation Officer Orthopaedic Surgery 12/09/20 Liban Mary MD [address] [place] [address] Consulting Physician Ophthalmology 06/11/21 12/26/23 Mary Prieto MD Consulting Physician Ophthalmology 05/06/17 Oxana Daniel OD Consulting Physician Optometry 12/27/23 documented as of this encounter
--- OUTSIDE RECORDS SUMMARY | 2024-09-12 17:32 | XMS_ITS | Encounter Summary ---
Author Organization [facility] Address [address] [place] [address] Phone Care Team Providers Care Assistant Terminal Manager Name Role Phone Blade Schaefer MD Primary Care Provider [phone] Amor Graham MD Unavailable [phone] Catia Martinez [facility] Unavailable [phone] Liban Mary MD Unavailable [phone] Reason for Visit * Reason Comments Medication Refill Encounter Details Date Type Department Care Team (Late st Contact Info) Description 08/20/2023 Refill [facility] - Primary Care - [place] [address] [place] [address] Blade Schaefer MD [address] [place] [address] Medication Refill Social History Tobacco [...] AM CDT Medication([facility]) [facility] and [facility] Medication Refill Standing Order [...] Dept 08/13/23 Office Visit Blade Schaefer MD [facility] 07/29/23 Office Visit Blade Schaefer MD [facility] 06/16/23 Office Visit Blade Schaefer MD [facility] 01/12/23 Office Visit Blade Schaefer MD [facility] 12/14/22 Office Visit Blade Schaefer MD [facility] Showing recent visits within past 365 [...] 12/28/2024 11:00 AM CDT Office Visit [facility] - Primary Care - [place] [address] [place] [address] Blade Schaefer MD [address] [place] [address] documented as of this encounter Visit Diagnoses Not on filedocumented in this encounter Additional Health Concerns Assessment Noted Time PHQ-9 Depression Total Score: 0 06/16/19 9:52 AM LENS MOLDING EQUIPMENT 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 documented as of this encounter Care Teams Assistant Terminal Manager Relationship Specialty Start Date End Date Blade Schaefer MD [address] [place] [address] PCP - General Internal Medicine 04/16/17 Amor Graham MD [address] [place] [address] Consulting Physician Cardiovascular Disease - Cardiology 04/16/17 Catia Martinez PAC [address] [facility] [address] Physician Assembly Adjuster Orthopaedic Surgery 12/09/20 Liban Mray MD [address] [place] [address] Consulting Physician Ophthalmology 06/11/21 12/26/23 Mary Prieto MD Consulting Physician Ophthalmology 05/06/17 Oxana Daniel OD Consulting Physician Optometry 12/27/23 documented as of this encounter
--- OUTSIDE RECORDS SUMMARY | 2024-09-12 17:33 | XMS_ITS | Clinical Summary ---
Author Organization [facility] Address [address] [address] Phone Care Team Providers Care Veterinary Poultry Inspector Name Role Phone Blade Schaefer MD Primary Care Provider [phone] Amor Graham MD Unavailable [phone] Catia Martinez Unavailable [phone] Allergies Active Allergy Reactions Criticality Noted Date [...] by mouth in the evening 021 Active Shamrock-3 Fatty Acids (FISH OIL PO) Take by [...] Type Department Care Team Description 09/07/2024 Refill [facility] [place] [address] [place] [address] Blade Schaefer MD Medication Refill 09/06/2024 Telephone [facility] [place] [address] [place] [address] Blade Schaefer MD Anticoagulation Monitoring (INR) 08/23/2024 Telephone [facility] [address] [place] [address] Blade Schaefer MD Anticoagulation Monitoring (INR) 08/13/2024 Refill [facility] [place] [address] Blade Schaefer MD Medication Refill 08/10/2024 Telephone [facility] [place] [address] Blade Schaefer MD Anticoagulation Monitoring (INR) 07/26/2024 Telephone [facility] [place] [address] Blade Schaefer MD Results (INR) 06/28/2024 Telephone [facility] [place] [address] Blade Schaefer MD Anticoagulation Monitoring (INR) 06/26/2024 11:30 AM SUPERINTENDENT CIRCUS Office Visit [facility] [place] [address] Giselle Mathew, AUTOMATIC STACKER, 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 WORKER [employer] Mixed hyperlipidemia (Primary Dx); Pacemaker; Hypertension, essential; Longstanding persistent atrial fibrillation (HCC); Herpes zoster without complication Discharge Disposition: Discharged to home or Selfcare 06/26/2024 Travel 06/26/2024 Nurse Triage [facility] [address] [place] [address] Blade Schaefer MD Advice Only; Appointment; Shingles [...] Comments Blood Pressure 100/74 06/26/2024 11:47 AM SUPERINTENDENT CIRCUS Pulse 75 06/26/2024 11:47 AM SUPERINTENDENT CIRCUS Temperature 36.9 C (98.5 F) 06/26/2024 11:47 AM SUPERINTENDENT CIRCUS Respiratory Rate 14 06/26/2024 11:47 AM SUPERINTENDENT CIRCUS Oxygen Saturation 97% 06/26/2024 11:47 AM SUPERINTENDENT CIRCUS Inhaled Oxygen Concentration - - Weight 74.5 kg (164 lb 5 oz) 06/26/2024 11:47 AM SUPERINTENDENT CIRCUS Height 180.3 cm (5' 11 ) 06/26/2024 11:47 AM SUPERINTENDENT CIRCUS Body Mass Index 22.92 06/26/2024 11:47 AM SUPERINTENDENT CIRCUS Plan of Treatment Upcoming Encounters Date Type Department Care Team (Late st Contact Info) Description 12/28/2024 11:00 AM CDT Office Visit [facility] - [facility] - [place] [address] [place] [address] Blade Schaefer MD [address] [place] [address] Health Maintenance Due Date Last Done Comments [...] topic Medical Devices Implanted Type Area Surgical Assistant Device Identifier Shelf Expiration Date Model / Serial / Lot Clip 360 Resolution 235cm - [id number] Implanted:Qty: 4 on 04/21/2019 by Aneesh Dawson DO at [facility] IMPLANT Kaleidoscope 10/02/2021 [id number] / [id number] / [id number] Procedures Procedure Name Priority Date/Time Associated Diagnosis Comments EXTERNAL INR (PT) Routine 09/06/2024 EXTERNAL INR (PT) Routine 08/23/2024 PROTIME (PT) (PROTHROMBIN TIME) 08/23/2024 12:00 AM CDT EXTERNAL INR (PT) Routine 08/07/2024 PROTIME (PT) (PROTHROMBIN TIME) 08/07/2024 12:00 AM CDT PROTIME (PT) (PROTHROMBIN TIME) 07/26/2024 12:00 AM SUPERINTENDENT CIRCUS EXTERNAL INR (PT) Routine 06/28/2024 PROTIME (PT) (PROTHROMBIN TIME) 06/28/2024 12:00 AM SUPERINTENDENT CIRCUS HEPATITIS C ANTIBODY Routine 06/16/2023 10:12 AM SUPERINTENDENT CIRCUS Encounter for hepatitis C screening test for [...] * HEPATITIS C ANTIBODY (06/16/2023 10:12 AM SUPERINTENDENT CIRCUS) hepatitis C antibody 0.10 <1 [facility] [id number] 06/17/2023 2:15 AM SUPERINTENDENT CIRCUS [facility] Comment: Signal/Cutoff ratio < 0.79 is Nondetected Signal/Cutoff ratio 0.80-0.99 is Grayzone Signal/Cutoff ratio > 0.99 is Detected Supplemental assays are recommended if signal/cutoff ratio is >/=1.00. Signal/cutoff ratio result >/= 5.00 is 97% predictive of positivity for recombinant immunoblot assay (RIBA) and will be reported to the [place] Department of Public Health as required. Blood Venipuncture / Unknown 06/16/2023 10:12 AM SUPERINTENDENT CIRCUS 06/16/2023 10:12 AM SUPERINTENDENT CIRCUS us Blade Schaefer MD CHEMISTRY ORDERABLES Jinny l Result Performing Organization Address City/[facility]/ZIP Co de Phone Number [facility] [address] [place] [address], from Last 3 Months or Most Recently Relevant to Health Maintenance Insurance MEDICARE C [facility] Care Teams Veterinary Poultry Inspector Relationship Specialty Start Date End Date Blade Schaefer MD [address] [place] [address] PCP - General Internal Medicine 04/16/17 Amor Graham MD [address] [facility] [address] Consulting Physician Cardiovascular Disease - Cardiology 04/16/17 Catia Martinez PAC [address] [place] [address] [place] [address] Physician All Round Butcher Orthopaedic Surgery 12/09/20 Mary Prieto MD Consulting Physician Ophthalmology 05/06/17 Oxana Daniel OD Consulting Physician Optometry 12/27/23
--- OUTSIDE RECORDS SUMMARY | 2024-09-12 17:33 | XMS_ITS | Encounter Summary ---
Author Organization [facility] Address [address] [place] [address] Phone Care Team Providers Care Physician Practice Market Manager Name Role Phone Blade Schaefer MD Primary Care Provider [phone] Amor Graham MD Unavailable [phone] Catia Martinez [facility] Unavailable [phone] Liban Mary MD Unavailable [phone] Reason for Visit * Reason Comments Medication Refill Encounter Details Date Type Department Care Team (Late st Contact Info) Description 09/09/2023 Refill [facility] - Primary Care - [place] [address] [place] [address] Blade Schaefer MD [address] [place] [address] Medication Refill Social History Tobacco [...] order placed on 07/29/2023 9:57 AM Order [id number]: meloxicam (MOBIC) 15 MG Tablet (For orders [...] Dept 08/13/23 Office Visit Blade Schaefer MD [facility] 07/29/23 Office Visit Blade Schaefer MD [facility] 06/16/23 Office Visit Blade Schaefer MD [facility] 01/12/23 Office Visit Blade Schaefer MD [facility] 12/14/22 Office Visit Blade Schaefer MD [facility] Showing recent visits within past 365 [...] Description 12/28/2024 11:00 AM CDT Office Visit [facility] - Primary Care - [place] [address] [place] [address] Blade Schaefer MD [address] [place] [address] documented as of this encounter Visit Diagnoses Diagnosis Bilateral hip pain Pain in joint, pelvic region and thigh documented in this encounter Additional Health Concerns Assessment Noted Time PHQ-9 Depression Total Score: 0 06/16/19 24 9:52 AM CANVAS CUTTER HAND documented as of this encounter Care Teams Physician Practice Market Manager Relationship Specialty Start Date End Date Blade Schaefer MD [address] [place] [address] PCP - General Internal Medicine 04/16/17 Amor Graham MD [address] [place] [address] Consulting Physician Cardiovascular Disease - Cardiology 04/16/17 Catia Martinez PAC [address] [place] [address] Physician Dividend Clerk Orthopaedic Surgery 12/09/20 Liban Mary MD [address] [place] [address] Consulting Physician Ophthalmology 06/11/21 12/26/23 Mary Prieto MD Consulting Physician Ophthalmology 05/06/17 Oxana Daniel OD Consulting Physician Optometry 12/27/23 documented as of this encounter
[2024-09-12 17:45] VITALS: BP 157/89
== END 2024-09-12 17:45 | disposition home or self-care (01) ==
PROVIDERS: Emergency Provider Family Medicine; PCP Internal Medicine
DX: S61.402A Unspecified open wound of left hand, initial encounter (principal); W23.0XXA Caught, crushed, jammed, or pinched between moving objects, initial encounter
CPT/HCPCS: 99283

== ENCOUNTER 2024-09-27 09:12 | Outpatient (CLI) | payer MEDICARE, SELFPAY ==
--- OUTSIDE RECORDS SUMMARY | 2024-09-27 09:50 | XMS_ITS | Encounter Summary ---
Author Organization [facility] Address [address] [place] [address] Phone Care Team Providers Care Assembler Deck And Hull Name Role Phone Blade Schaefer MD Primary Care Provider [phone] Amor Graham MD Unavailable [phone] Catia Martinez [facility] Unavailable [phone] Liban Mary MD Unavailable [phone] Reason for Visit * Reason Comments Medication Refill Encounter Details Date Type Department Care Team (Late st Contact Info) Description 09/09/2023 Refill [facility] - Primary Care - [place] [address] [place] [address] Blade Schaefer MD [address] [place] [address] Medication Refill Social History Tobacco [...] order placed on 07/29/2023 9:57 AM Order [id number]: meloxicam (MOBIC) 15 MG Tablet (For orders [...] Dept 08/13/23 Office Visit Blade Schaefer MD [facility] 07/29/23 Office Visit Blade Schaefer MD [facility] 06/16/23 Office Visit Blade Schaefer MD [facility] 01/12/23 Office Visit Blade Schaefer MD [facility] 12/14/22 Office Visit Blade Schaefer MD [facility] Showing recent visits within past [...] Care Team (Late st Contact Info) Description 10/24/2024 11:15 AM CDT Office Visit [facility] Primary [place] - [place] [address] [place] [address] Blade Schaefer MD [address] [place] [address] 12/28/2024 11:00 AM CDT Office Visit [facility] Primary [facility] - [place] [address] [place] [address] Blade Schaefer MD [address] [place] [address] documented as of this encounter Visit Diagnoses Diagnosis Bilateral hip pain Pain in joint, pelvic region and thigh documented in this encounter Additional Health Concerns Assessment Noted Time PHQ-9 Depression Total Score: 0 06/16/19 24 9:52 AM 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 documented as of this encounter Care Teams Assembler Deck And Hull Relationship Specialty Start Date End Date Blade Schaefer MD [address] [place] [address] PCP - General Internal Medicine 04/16/17 Amor Graham MD [address] [facility] [place] [address] Consulting Physician Cardiovascular Disease - Cardiology 04/16/17 Catia Martinez PAC [address] [facility] [place] [address] Physician Mechanical Technologist Orthopaedic Surgery 12/09/20 Liban Mray MD [address] [place] [address] Consulting Physician Ophthalmology 06/11/21 12/26/23 Mary Prieto MD Consulting Physician Ophthalmology 05/06/17 Oxana Daniel OD Consulting Physician Optometry 12/27/23 documented as of this encounter
--- OUTSIDE RECORDS SUMMARY | 2024-09-27 09:50 | XMS_ITS | Encounter Summary ---
Author Organization [employer] Care Team Providers Care Airplane Coverer Name Role Phone Blade Schaefer MD Primary Care Provider [phone] Amor Graham MD Unavailable [phone] Meagan Martinezi PAC Unavailable [phone] Encounter Details Date Type Department Care Team (Latest Contact Info) Description 09/26/2024 Travel Social History Tobacco Use Types Packs/Day Years Used Date Smoking Tobacco: Some Days Cigars Smokeless Tobacco: Never Comments:Smokes a cigar ever y once and a while Alcohol Use Standard Drinks/Week Comments Yes 5 (1 standard drink = 0.6 oz pur e alcohol) Rarely [facility] Utilities Answer Date Recorded In the past 12 months has e electric, gas, oil, or water company threatened to shut off services in your home? Patient declined 09/14/2024 Social Connection and Isolation Panel [NHANES] A nswer Date Recorded In a typical week, how many times do you talk on the phone with family, friends, or neighbors? Patient declined 09/14/2024 How often do you get togethe r with friends or relatives? Patient declined 09/14/2024 How often do you attend amish or bahai serv ices? Patient declined 09/14/2024 Do you belong to any clubs o r organizations such as amish groups, unions, fraternal or athletic groups, or school groups? Patient declined 09/14/2024 How often do you attend meet ings of the clubs or organizations you belong to? Patient declined 09/14/2024 Are you , , di vorced, , never , or living with a partner? Patient declined 09/14/2024 AUDIT-C Answer Date Recorded Q1: How often do you have a drink containing alc ohol? Patient declined 09/14/2024 Q2: How many drinks containi ng alcohol do you have on a typical day when you are drinking? Patient declined 09/14/2024 Q3: How often do you have si x or more drinks on one occasion? Patient declined 09/14/2024 Overall Financial Resource Strain (CARDIA) Answe r Date Recorded How hard is it for you to pa y for the very basics like food, housing, medical care, and heating? Patient declined 09/14/2024 PHQ-2 Answer Date Recorded Total Score - Questions 1-9 9 08/29 [facility] - Occupational Stress Questionnaire Answer Date Recorded Do you feel stress - tense, restless, nervous, or anxious, or unable to sleep at night because your mind is troubled all the time - these days? Patient declined 09/14/2024 Exercise Vital Sign Answer Date Recorde d On average, how many days pe r week do you engage in moderate to strenuous exercise (like a brisk walk)? Patient declined On average, how many minutes do you engage in exercise at this level? Patient declined 09/14/2024 Hunger Vital Sign Answer Date Recorded Within the past 12 months, y ou worried that your food would run out before you got the money to buy more. Patient declined Within the past 12 months, t he food you bought just didn't last and you didn't have money to get more. Patient declined PRAPARE - Transportation Answer Date Re corded In the past 12 months, has l ack of transportation kept you from medical appointments or from getting medications? Patient declined 09/14/2024 In the past 12 months, has l ack of transportation kept you from meetings, work, or from getting things needed for daily living? Patient declined 09/14/2024 Housing Stability Vital Sign Answer Ponce e Recorded In the last 12 months, was t here a time when you were not able to pay the mortgage or rent on time? Patient declined 09/15/19 25 In the past 12 months, how m any times have you moved where you were living? 0 09/14/2024 At any time in the past 12 m [facility], were you homeless or living in a care home (including now)? Patient declined 09/14/2024 Sex and Gender Information Value Date Recorded Sex Assigned at Male 01/11/2023 11:12 AM CDT Legal Sex Male 7:59 PM CDT Gender Identity Male 01/11/2023 11:12 AM CDT Sexual Orientation Not on file documented as of this encounter Plan of Treatment Upcoming Encounters Date Type Department Care Team (Late st Contact Info) Description 10/24/2024 11:15 AM CDT Office Visit [facility] [place] [address] [place] [address] Blade Schaefer MD [address] [place] [address] 12/28/2024 11:00 AM CDT Office Visit [facility] [place] [address] [place] [address] Blade Schaefer MD [address] [place] [address] documented as of this encounter Visit Diagnoses Not on filedocumented in this encounter Additional Health Concerns Assessment Noted Time PHQ-9 Depression Total Score: 9 09/15/19 25 11:19 AM CDT documented as of this encounter Care Teams Airplane Coverer Relationship Specialty Start Date End Date Blade Schaefer MD [address] [place] [address] PCP - General Internal Medicine 04/16/17 Amor Graham MD [address] [facility] [place] [address] Consulting Physician Cardiovascular Disease - Cardiology 04/16/17 Catia Martinez PAC [address] [place] [address] [place] [address] Physician Engraver Tender Orthopaedic Surgery 12/09/20 Mary Prieto MD Consulting Physician Ophthalmology 05/06/17 Oxana Daniel OD Consulting Physician Optometry 12/27/23 documented as of this encounter
--- OUTSIDE RECORDS SUMMARY | 2024-09-27 09:50 | XMS_ITS | Encounter Summary ---
Author Organization [facility] Address [address] [place] [address] Phone Care Team Providers Care Maintenance Supervisor Electrical Name Role Phone Blade Schaefer MD Primary Care Provider [phone] Amor Graham MD Unavailable [phone] Catia Martinez Unavailable [phone] Reason for Visit * Reason Comments Medication Refill Encounter Details Date Type Department Care Team (Late st Contact Info) Description 09/27/2024 Refill [facility] - Primary Care - [place] [address] [place] [address] Blade Schaefer MD [address] [place] [address] Medication Refill Social History Tobacco Use Types Packs/Day Years Used Date Smoking Tobacco: Some Days Cigars Smokeless Tobacco: Never Comments:Smokes a cigar ever y once and a while Alcohol Use Standard Drinks/Week Comments Yes 5 (1 standard drink = 0.6 oz pur e alcohol) Rarely [facility] Utilities Answer Date Recorded In the past 12 months has e [employer], gas, oil, or water company threatened to [...] declined 09/14/2024 How often do you attend holiness or taoism serv ices? Patient declined 09/14/2024 Do you belong to any clubs o r organizations such as holiness groups, unions, fraternal or athletic groups, or [...] Total Score - Questions 1-9 9 08/29 [facility] - Occupational Stress [...] any time in the past 12 m ont, were you homeless or living in a fdc (including now)? Patient declined 09/14/2024 Sex and Gender Information Value Date Recorded Sex Assigned at Male 01/11/2023 11:12 AM CDT Legal Sex Male 7:59 PM CDT Gender Identity Male 01/11/2023 11:12 AM CDT Sexual Orientation Not on file documented as of this encounter Miscellaneous Notes * Telephone Encounter - Celi Peralta RN - 09/27/2024 7:59 AM CDT Patient has requested refill too soon documented in this encounter Plan of Treatment Upcoming Encounters Date Type Department Care Team (Late st Contact Info) Description 10/24/2024 11:15 AM CDT Office Visit [facility] - [place] [address] [place] [address] Blade Schaefer MD [address] [place] [address] 12/28/2024 11:00 AM CDT Office Visit [facility] - [place] [address] [place] [address] Blade Schaefer MD [address] [place] [address] documented as of this encounter Visit Diagnoses Diagnosis Longstanding persistent atrial fibrillation (HCC) documented in this encounter Additional Health Concerns Assessment Noted Time PHQ-9 Depression Total Score: 9 09/15/19 25 11:19 AM CDT documented as of this encounter Care Teams Maintenance Supervisor Electrical Relationship Specialty Start Date End Date Blade Schaefer MD [address] [place] [address] PCP - General Internal Medicine 04/16/17 Amor Graham MD 2 [facility] [place] [address] Consulting Physician Cardiovascular Disease - Cardiology 04/16/17 Catia Martinez PAC 4 [facility] [place] [address] Physician Professor Of Special Education Orthopaedic Surgery 12/09/20 Mary Prieto MD Consulting Physician Ophthalmology 05/06/17 Oxana Daniel OD Consulting Physician Optometry 12/27/23 documented as of this encounter
--- OUTSIDE RECORDS SUMMARY | 2024-09-27 09:50 | XMS_ITS | Encounter Summary ---
Author Organization [facility] Address [address] [place] [address] Phone Care Team Providers Care Mergers And Acquisitions Associate Name Role Phone Blade Schaefer MD Primary Care Provider [phone] Amor Graham MD Unavailable [phone] Catia Martinez [facility] Unavailable [phone] Liban Mary MD Unavailable [phone] Reason for Visit * Reason Comments Medication Refill Encounter Details Date Type Department Care Team (Late st Contact Info) Description 06/18/2023 Refill [facility] - Primary Care - [place] [address] [place] [address] Blade Schaefer MD [address] [place] [address] Medication Refill Social History Tobacco [...] prescription was reordered on 04/01/2023. dose changed [facility] FIREFIGHTER documented in this encounter Plan of Treatment Upcoming Encounters Date Type Department Care Team (Late st Contact Info) Description 10/24/2024 11:15 AM CDT Office Visit [facility] [place] [address] [place] [address] Blade Schaefer MD [address] [place] [address] 12/28/2024 11:00 AM CDT Office Visit [facility] [place] [address] [place] [address] Blade Schaefer MD [address] [place] [address] documented as of this encounter Visit Diagnoses Diagnosis Longstanding persistent atrial fibrillation (HCC) documented in this encounter Additional Health Concerns Assessment Noted Time PHQ-9 Depression Total Score: 0 06/16/19 24 9:52 AM FOREST FIREFIGHTER documented as of this encounter Care Teams Mergers And Acquisitions Associate Relationship Specialty Start Date End Date Blade Schaefer MD [address] [place] [address] PCP - General Internal Medicine 04/16/17 Amor Graham MD [address] [facility] [place] [address] Consulting Physician Cardiovascular Disease - Cardiology 04/16/17 Catia Martinez PAC [address] [facility] [place] [address] Physician Towel Distributor Orthopaedic Surgery 12/09/20 Liban Mary MD [address] [place] [address] Consulting Physician Ophthalmology 06/11/21 12/26/23 Mary Prieto MD Consulting Physician Ophthalmology 05/06/17 Oxana Daniel OD Consulting Physician Optometry 12/27/23 documented as of this encounter
--- OUTSIDE RECORDS SUMMARY | 2024-09-27 09:50 | XMS_ITS | Encounter Summary ---
Author Organization [facility] Address [address] [place] [address] Phone Care Team Providers Care Cabinet Maker Name Role Phone Blade Schaefer MD Primary Care Provider [phone] Amor Graham MD Unavailable [phone] Catia Martinez PAC Unavailable [phone] Liban Mary MD Unavailable [phone] Reason for Visit * Reason Comments Medication Refill Encounter Details Date Type Department Care Team (Late st Contact Info) Description 12/30/2022 Refill [facility] - Primary Care - [place] [address] [place] [address] Blade Schaefer MD [address] [place] [address] Medication Refill Social History Tobacco [...] Dept 12/14/22 Office Visit Blade Schaefer MD [facility] 06/15/22 Office Visit Blade Schaef[facility] Dept 12/14/22 Office Visit Blade Schaefer MD [facility] 06/15/22 Office Visit Blade Schaefer MD [facility] [...] Description 10/24/2024 11:15 AM CDT Office Visit [facility] [place] [address] [place] [address] Blade Schaefer MD [address] [place] [address] 12/28/2024 11:00 AM CDT Office Visit [facility] [place] [address] [place] [address] Blade Schaefer MD [address] [place], [place] [id number] documented as of this encounter Visit Diagnoses Not on filedocumented in this encounter Additional Health Concerns Assessment Noted Time PHQ-9 Depression Total Score: 0 06/11/19 21 8:00 AM STAGE DRIVER documented as of this encounter Care Teams Cabinet Maker Relationship Specialty Start Date End Date Blade Schaefer MD [address] [place] [address] PCP - General Internal Medicine 04/16/17 Amor Graham MD [address] [facility] [place] [address] Consulting Physician Cardiovascular Disease - Cardiology 04/16/17 Catia Martinez PAC [address] [facility] [place] [address] Physician Egg Grader Orthopaedic Surgery 12/09/20 Liban Mary MD [address] [place] [address] Consulting Physician Ophthalmology 06/11/21 12/26/23 Mary Prieto MD Consulting Physician Ophthalmology 05/06/17 Oxana Daniel OD Consulting Physician Optometry 12/27/23 documented as of this encounter
--- OUTSIDE RECORDS SUMMARY | 2024-09-27 09:50 | XMS_ITS | Clinical Summary ---
Author Organization [facility] Address [address] [address] Phone Care Team Providers Care Interior Painter Name Role Phone Blade Schaefer MD Primary Care Provider [phone] Amor Graham MD Unavailable [phone] Catia Martinez Unavailable [phone] Allergies Active Allergy Reactions Criticality Noted Date [...] by mouth in the evening 021 Active Sheridan-3 Fatty Acids (FISH OIL PO) Take by mouth. Activ e lisinopril (PRINIVIL, ZESTRIL) 10 MG TabletIndicatio ns:Hypertension , essential Take 1 Tablet by mouth daily. 90 Tablet 3 024 Active valACYclovir (VALTREX) 1 GM Tablet [...] Atrial Fibrillation 90 Tablet 1 025 Active doxycycline hyclate (VIBRAMYCIN) 100 MG Capsule Take 1 Capsule by mouth 2 times daily for 7 days. 14 Capsule 025 2024 Active DULoxetine (CYMBALTA) [address] ParticlesIndica tions:Chronic midline low back pain without sciatica TAKE 1 CAPSULE BY MOUTH EVERY DAY AT NIGHT 90 Capsule 1 025 Active DULoxetine (CYMBALTA) [address] ParticlesIndica tions:Chronic midline low back pain without sciatica Take 1 Capsule by mouth nightly. 90 Capsule 1 024 2024 Discontinued doxycycline hyclate (VIBRA-TABS) 100 MG Tablet 025 2024 Discontinued(T herapy completed) Active Problems Problem Noted Date Diagnosed Date [...] Encounters Date Type Department Care Team Description 09/27/2024 Refill [facility] [address] [place] [address] Blade Schaefer MD Medication Refill 09/27/2024 [address] [facility] [address] [place] [address] Blade Schaefer MD Medication Refill 09/26/2024 3:30 PM CDT Office Visit [place] [address] [facility] [place] [address] Giselle Mathew, MECHANICAL ENGINEERING LECTURER, GENERAL I FARMWORKER Urine frequency (Primary Dx); Other fatigue Discharge Disposition: Discharged to home or Selfcare 09/26/2024 Travel 09/26/2024 Nurse Triage [facility] [address] [place] [address] Blade Schaefer MD Advice Only; Generalized Weakness 09/14/2024 11:30 AM CDT Office Visit [facility] [address] [place] [address] Blade Schaefer MD Laceration of left hand without foreign body, subsequent encounter (Primary Dx) Discharge Disposition: Discharged to home or Selfcare 09/14/2024 Travel 09/07/2024 [address] [facility] [address] [place] [address] Blade Schaefer MD Medication Refill 09/06/2024 [address] [facility] [address] [place] [address] Blade Schaefer MD Anticoagulation Monitoring (INR) 08/23/2024 Telephone [place] [address] [place] [address] Blade Schaefer MD Anticoagulation Monitoring (INR) 08/13/2024 [facility] [place] [address] [place] [address] Blade Schaefer MD Medication Refill 08/10/2024 [facility] [place] [address] [place] [address] Blade Schaefer MD Anticoagulation Monitoring (INR) 07/26[facility]2024 [facility] [address] [place] [address] Blade Schaefer MD Results (INR) from Last 3 Months Immunizations Immunization Administration Dates Next Due Covid-19, Mrna, Lnp-s, Pf, 3 0 Mcg/0.3 Ml Dose (Chute) 07/23/2020,07/02/2020 Covid-19, Mrna, Lnp-s, Pf, 3 0 Mcg/0.3 Ml Dose, Kamran-sucrose ([place]ute camacho top) 03/16/2024 Covid-19, Mrna, Lnp-s, Pf, [...] Never Tobacco Cessation:Ready to Q uit: Not Asked; Counseling Given: Not Answered Comments:Smokes a cigar every once and a while Alcohol Use Standard Drinks/Week Comments Yes 5 (1 standard drink = 0.6 oz pur e alcohol) Rarely [facility] Utilities Answer Date Recorded In the past 12 months has e [employer], gas, oil, or water [employer] threatened to shut off services in your home? Patient declined 09/14/2024 Social Connection and Isolation Panel [NHANES] A nswer Date Recorded In a typical week, how many times do you talk on the phone with family, friends, or neighbors? Patient declined 09/14/2024 How often do you get togethe r with friends or relatives? Patient declined 09/14/2024 How often do you attend taoism or adventist serv ices? Patient declined 09/14/2024 Do you belong to any clubs o r organizations such as taoism groups, unions, fraternal or athletic groups, or [...] Total Score - Questions 1-9 9 08/29 [facility] - Occupational Stress [...] any time in the past 12 m [facility], were you homeless or living in a prison (including now)? Patient declined 09/14/2024 Sex and Gender Information Value Date Recorded Sex Assigned at Male 01/11/2023 11:12 AM CDT Legal Sex Male 7:59 PM CDT Gender Identity Male 01/11/2023 11:12 AM CDT Sexual Orientation Not on file Last Filed Vital Signs Vital Sign Reading Time Taken Comments Blood Pressure 130/60 09/26/2024 3:23 PM CDT Pulse 60 09/26/2024 3:23 PM CDT Temperature 36.7 C (98.1 F) 09/26/2024 3:23 PM CDT Respiratory Rate 20 09/26/2024 3:23 PM CDT Oxygen Saturation 95% 09/26/2024 3:23 PM CDT Inhaled Oxygen Concentration - - Weight 72.5 kg (159 lb 12.8 oz) 09/26/2024 3:23 PM CDT Height 180.3 cm (5' 11 ) 09/26/2024 3:23 PM CDT Body Mass Index 22.29 09/26/2024 3:23 PM CDT Plan of Treatment Upcoming Encounters Date Type Department Care Team (Late st Contact Info) Description 10/24/2024 11:15 AM CDT Office Visit [facility] [place] [address] [place] [address] Blade Schaefer MD [address] [place], [place] [address] 12/28/2024 11:00 AM CDT Office Visit [facility] [place] [address] [place] [address] Blade Schaefer MD [address] [place] [address] Health Maintenance Due Date Last Done Comments [...] this topic Medical Devices Implanted Type Area Animal Care Taker Device Identifier Shelf Expiration Date Model / Serial / Lot Clip 360 Resolution 235cm - [id number] Implanted:Qty: 4 on 04/21/2019 by Aneesh Dawson DO at [facility] IMPLANT Second Sight 10/02/2021 [id number] / [id number] / [id number] Procedures Procedure Name Priority Date/Time Associated Diagnosis Comments POCT UA AUTOMATED W/O MICRO Routine 09/26/2024 3:50 PM CDT Urine frequency EXTERNAL INR (PT) Routine 09/06/2024 PROTIME (PT) (PROTHROMBIN TIME) 09/06/2024 12:00 AM CDT EXTERNAL INR (PT) Routine 08/23/2024 PROTIME (PT) (PROTHROMBIN TIME) 08/23/2024 12:00 AM CDT EXTERNAL INR (PT) Routine 08/07/2024 PROTIME (PT) (PROTHROMBIN TIME) 08/07/2024 12:00 AM CDT PROTIME (PT) (PROTHROMBIN TIME) 07/26/2024 12:00 AM COVERING MACHINE OPERATOR HELPER HEPATITIS C ANTIBODY Routine 06/16/2023 10:12 AM COVERING MACHINE OPERATOR HELPER Encounter for hepatitis C screening test for low risk patient from Last 3 Months or Most Recently Relevant to Health Maintenance Results * POCT UA AUTOMATED W/O MICRO (09/26/2024 3:50 PM CDT) POC UA SPECIFIC GRAVITY 1.020 URINE PH 5.0 5.0 - 9.0 POC URINE LEUKOCYTES Negative Negative Annalisa/uL POC URINE NITRITE Negative Negative POC URINE PROTEIN Negative Negative mg/dL POC URINE GLUCOSE Norm Negative, Norm mg/dL POC URINE KETONE Negative Negative mg/dL POC URINE UROBILINOGEN Norm Norm, 0.2 E.U./dL (mg/dL), 1 E.U./dL (mg/dL) POC URINE BILIRUBIN Negative Negative mg/dL POC URINE BLOOD INSTRUMENT Negative Negative Henry/uL POC URINE COLOR Yellow POC URINE CLARITY Clear Urine 09/26/2024 3:50 PM CDT Giselle Mathew MECHANICAL ENGINEERING LECTURER, GENERAL I FARMWORKER POINT OF CARE TESTING ([place] U[place]) Final Result * PROTIME (PT) (PROTHROMBIN TIME) (09/06/2024 12:00 AM CDT) Only the most recent of4 resultswithin the time period is included. INR 3.0 SCAN 09/06/2024 Provider Scan HEMATOLOGY ORDERABLES Final Resu lt SCAN * (ABNORMAL) EXTERNAL INR (PT) (09/06/2024) Only the most recent of3 resultswithin the time period is included. INR 3.00(A) 0.90 - 1.10 Blood Historical Provider POINT OF CARE TESTING (MURRAY CURRAN) Final Result * HEPATITIS C ANTIBODY (06/16/2023 10:12 AM COVERING MACHINE OPERATOR HELPER) hepatitis C antibody 0.10 <1 S/CO [facility] ARCH [id number] B 06/17/2023 2:15 AM COVERING MACHINE OPERATOR HELPER [facility] Comment: Signal/Cutoff ratio < 0.79 is Nondetected Signal/Cutoff ratio 0.80-0.99 is Grayzone Signal/Cutoff ratio > 0.99 is Detected Supplemental assays are recommended if signal/cutoff ratio is >/=1.00. Signal/cutoff ratio result >/= 5.00 is 97% predictive of positivity for recombinant immunoblot assay (RIBA) and will be reported to the [place] Department of Public Health as required. Blood Venipuncture / Unknown 06/16/2023 10:12 AM COVERING MACHINE OPERATOR HELPER 06/16/2023 10:12 AM COVERING MACHINE OPERATOR HELPER us Blade Schaefer MD CHEMISTRY ORDERABLES Jinny franco Result [facility] [address] [place] [address], [place] from Last 3 Months or Most Recently Relevant to Health Maintenance Insurance MEDICARE C [employer] [place] [id number] Care Teams Interior Painter Relationship Specialty Start Date End Date Blade Schaefer MD [address] [place] [address] PCP - General Internal Medicine 04/16/17 Amro Graham MD [address] [facility] [place] [address] Consulting Physician Cardiovascular Disease - Cardiology 04/16/17 Catia Martinez PAC [address] [facility] [place] [address] Physician Label Stamper Orthopaedic Surgery 12/09/20 Mary Prieto MD Consulting Physician Ophthalmology 05/06/17 Oxana Daniel OD Consulting Physician Optometry 12/27/23
--- OUTSIDE RECORDS SUMMARY | 2024-09-27 09:50 | XMS_ITS | Encounter Summary ---
Author Organization [facility] Address [address] [place] [address] Phone Care Team Providers Care Handstitching Machine Armhole Feller Name Role Phone Blade Schaefer MD Primary Care Provider [phone] Amor Graham MD Unavailable [phone] Catia Martinez [facility] Unavailable [phone] Liban Mary MD Unavailable [phone] Reason for Visit * Reason Comments Medication Refill Encounter Details Date Type Department Care Team (Late st Contact Info) Description 09/28/2023 Refill [facility] - Primary Care - [place] [address] [place] [address] Blade Schaefer MD [address] [place] [address] Medication Refill Social History Tobacco [...] Dept 08/13/23 Office Visit Blade Schaefer MD [facility] 07/29/23 Office Visit Blade Schaefer MD [facility] 06/16/23 Office Visit Blade Schaefer MD [facility] 01/12/23 Office Visit Blade Schaefer MD [facility] 12/14/22 Office Visit Blade Schaefer MD [facility] Showing recent visits within past 365 days and meeting all other requirements Future Appointments Date Type Provider Dept 12/27/23 Appointment Blade Schaefer MD [facility] Showing future appointments within next 90 days [...] Description 10/24/2024 11:15 AM CDT Office Visit [facility] [place] [address] [place] [address] Blade Schaefer MD [address] [place] [address] 12/28/2024 11:00 AM CDT [facility] Visit [facility] [place] [address] [place] [address] Blade Schaefer MD [address] [place] [address] documented as of this encounter Visit Diagnoses Diagnosis Bilateral hip pain Pain in joint, pelvic region and thigh documented in this encounter Additional Health Concerns Assessment Noted Time PHQ-9 Depression Total Score: 0 06/16/19 24 9:52 AM SPRAYER INSECTICIDE documented as of this encounter Care Teams Handstitching Machine Armhole Feller Relationship Specialty Start Date End Date Blade Schaefer MD [address] [place] [address] PCP - General Internal Medicine 04/16/17 GladysAmor [place] MD [address] [facility] [address] [place] [address] Consulting Physician Cardiovascular Disease - Cardiology 04/16/17 Catia Martinez PAC [address] [facility] [place] [address] Physician Director Athletic Orthopaedic Surgery 12/09/20 Liban Mary MD [address] [place] [address] Consulting Physician Ophthalmology 06/11/21 12/26/23 Mary Prieto MD Consulting Physician Ophthalmology 05/06/17 Oxana Daniel OD Consulting Physician Optometry 12/27/23 documented as of this encounter
--- OUTSIDE RECORDS SUMMARY | 2024-09-27 09:50 | XMS_ITS | Encounter Summary ---
Author Organization [facility] Address [address] [place] [address] Phone Care Team Providers Care Tar Heater Operator Name Role Phone Blade Schaefer MD Primary Care Provider [phone] Amor Graham MD Unavailable [phone] Catia Martinez [facility] Unavailable [phone] Liban Mary MD Unavailable [phone] Reason for Visit * Reason Comments Medication Refill Encounter Details Date Type Department Care Team (Late st Contact Info) Description 08/20/2023 Refill [facility] - Primary Care - [place] [address] [place] [address] Blade Schaefer MD [address] [place] [address] Medication Refill Social History Tobacco [...] Dept 08/13/23 Office Visit Blade Schaefer MD [facility] 07/29/23 Office Visit Blade Schaefer MD [facility] 06/16/23 Office Visit Blade Schaefer MD [facility] 01/12/23 Office Visit Blade Schaefer MD [facility] 12/14/22 Office Visit Blade Schaefer MD [facility] Showing recent visits within past 365 days [...] Description 10/24/2024 11:15 AM CDT Office Visit [facility] [place] [address] [place] [address] Blade Schaefer MD [address] [place], [place] [address] 12/28/2024 11:00 AM CDT Office Visit [facility] [place] [address] [place] [address] Blade Schaefer MD [address] [place] [address] documented as of this encounter Visit Diagnoses Not on filedocumented in this encounter Additional Health Concerns Assessment Noted Time PHQ-9 Depression Total Score: 0 06/16/19 24 9:52 AM DOMESTIC HELPER documented as of this encounter Care Teams Tar Heater Operator Relationship Specialty Start Date End Date Blade Schaefer MD [address] [place] [address] PCP - General Internal Medicine 04/16/17 Amor Graham MD [address] [facility] [place] [address] Consulting Physician Cardiovascular Disease - Cardiology 04/16/17 Catia Martinez PAC [address] [facility] [place] [address] Physician Movement Education Specialist Orthopaedic Surgery 12/09/20 Liban Mary MD [address] [place] [address] Consulting Physician Ophthalmology 06/11/21 12/26/23 Mary Prieto MD Consulting Physician Ophthalmology 05/06/17 Oxana Daniel OD Consulting Physician Optometry 12/27/23 documented as of this encounter
--- OUTSIDE RECORDS SUMMARY | 2024-09-27 09:50 | XMS_ITS | Encounter Summary ---
Author Organization [facility] Address [address] [place] [address] Phone Care Team Providers Care Experimental Display Builder Name Role Phone Blade Schaefer MD Primary Care Provider [phone] Amor Graham MD Unavailable [phone] Catia Martinez Unavailable [phone] Reason for Visit * Reason Comments Fatigue Onset for the past t wo weeks. Per daughter it is getting worse. Generalized Weakness Encounter Details Date Type Department Care Team (Late st Contact Info) Description 09/26/2024 3:30 PM CDT Office Visit [facility] - [facility] Care - [place] [address] [place] [address] Giselle Mathew, ON SITE SERVICES SPECIALIST, STICKER MACHINE OPERATOR [address] [place] [address] Urine frequency (Primary Dx); Other fatigue Discharge Disposition: Discharged to home or Selfcare Social History Tobacco Use Types Packs/Day Years Used Date Smoking Tobacco: Some Days Cigars Smokeless Tobacco: Never Tobacco Cessation:Ready to Q uit: Not Asked; Counseling Given: Not Answered Comments:Smokes a cigar every once and a while Alcohol Use Standard Drinks/Week Comments Yes 5 (1 standard drink = 0.6 oz pur e alcohol) Rarely [facility] Utilities Answer Date Recorded In the past 12 months has [employer], [employer], or [employer] threatened to shut off services in your home? Patient declined 09/14/2024 Social Connection and Isolation Panel [NHANES] A nswer Date Recorded In a typical week, how many times do you talk on the phone with family, friends, or neighbors? Patient declined 09/14/2024 How often do you get togethe r with friends or relatives? Patient declined 09/14/2024 How often do you attend jew or evangelical serv ices? Patient declined 09/14/2024 Do you belong to any clubs o r organizations such as jew groups, unions, fraternal or athletic groups, or [...] Questions 1-9 9 08/29 [facility] - Occupational Stress Questionnaire Answer Date Recorded [...] any time in the past 12 m [facility], were you homeless or living in a senior living (including now)? Patient declined 09/14/2024 Sex and Gender Information Value Date Recorded Sex Assigned at Male 01/11/2023 11:12 AM CDT Legal Sex Male 7:59 PM CDT Gender Identity Male 01/11/2023 11:12 AM CDT Sexual Orientation Not on file documented as of this encounter Last Filed Vital Signs Vital Sign Reading [...] Mass Index 22.29 09/26/2024 3:23 PM CDT documented in this encounter Patient Instructions * Patient Instructions* Giselle Mathew, ON SITE SERVICES SPECIALIST, STICKER MACHINE OPERATOR - 09/26/2024 3:30 PM CDT Take all medications as prescribed. Please continue with a balanced lifestyle of exercise and healthy eating. If any question, please call. Thanks for coming in today! documented in this encounter Plan of Treatment Upcoming Encounters Date Type Department Care Team (Late st Contact Info) Description 10/24/2024 11:15 AM CDT Office Visit [facility] - [place] [address] [place] [phone] Blade Schaefer MD [address] [place], [place] [id number] 12/28/2024 11:00 AM CDT Office [facility] - [place] [address] [place] [address] Blade Schaefer MD [address] [place] [address] Scheduled Orders Name Type Priority Associated Diagnoses Orde r Schedule COMPLETE BLOOD COUNT (CBC) WITH DIFF Lab Routine Other fatigue Expected: 09/26/2024, Expires: 12/26/2024 CMP (COMPREHENSIVE METABOLIC PANEL) Lab Routine Other fatigue Expected: 09/26/2024, Expires: 12/26/2024 documented as of this encounter Procedures Procedure Name Priority Date/Time Associated Diagnosis Comments POCT UA AUTOMATED W/O MICRO Routine 09/26/2024 3:50 PM CDT Urine frequency documented in this encounter Results * POCT UA AUTOMATED W/O MICRO [...] CLARITY Clear Urine 09/26/2024 3:50 PM CDT us Giselle Robert Quincy ON SITE SERVICES SPECIALIST, STICKER MACHINE OPERATOR POINT OF CARE TESTING (MAN UAL) Final Result documented in this encounter Visit Diagnoses Diagnosis Urine frequency- Primary Urinary frequency Other fatigue documented in this encounter Additional Health Concerns Assessment Noted Time PHQ-9 Depression Total Score: 9 09/15/19 25 11:19 AM CDT documented as of this encounter Care Teams Experimental Display Builder Relationship Specialty Start Date End Date Blade Schaefer MD [address] [place] [address] PCP - General Internal Medicine 04/16/17 Amor Graham MD [address] [facility] [place] [address] Consulting Physician Cardiovascular Disease - Cardiology 04/16/17 Catia Martinez PAC [address] [facility] [place] [address] Physician Gambling Monitor Orthopaedic Surgery 12/09/20 Mary Prieto MD Consulting Physician Ophthalmology 05/06/17 Oxana Daniel OD Consulting Physician Optometry 12/27/23 documented as of this encounter
--- OUTSIDE RECORDS SUMMARY | 2024-09-27 09:50 | XMS_ITS | Encounter Summary ---
Author Organization [facility] Address [address] [facility] [place] [address] Phone Care Team Providers Care Car Refinisher Name Role Phone Blade Schaefer MD Primary Care Provider [phone] Amor Graham MD Unavailable [phone] Catia Martinez PAC Unavailable [phone] Reason for Visit * Reason Onset Date Comments Advice Only 09/26/2024 Generalized Weakness 09/26/2024 Encounter Details Date Type Department Care Team (Late st Contact Info) Description 09/26/2024 Nurse Triage [facility] [address] [place] [address] Blade Schaefer MD [address] [place] [address] Advice Only; Generalized Weakness Social History Tobacco Use Types Packs/Day Years Used Date Smoking Tobacco: Some Days Cigars Smokeless Tobacco: Never Comments:Smokes a cigar ever y once and a while Alcohol Use Standard Drinks/Week Comments Yes 5 (1 standard drink = 0.6 oz pur e alcohol) Rarely [facility] Utilities Answer Date Recorded In the past 12 months has th e electric, gas, oil, or water company [...] How often do you attend holiness or mandaeism serv ices? Patient declined 09/14/2024 Do you [...] Total Score - Questions 1-9 9 08/29 [facility] - [...] any time in the past 12 m [facility], were you homeless or living in a chcf (including now)? Patient declined 09/14/2024 Sex and Gender Information Value Date Recorded Sex Assigned at Male 01/11/2023 11:12 AM CDT Legal Sex Male 7:59 PM CDT Gender Identity Male 01/11/2023 11:12 AM CDT Sexual Orientation Not on file documented as of this encounter Miscellaneous Notes * Telephone Encounter - Darling Vasquez RN - 09/26/2024 8:11 AM CDT SITUATION: Patients daughter calling concerned states he dad has been off lately. BACKGROUND: Patients daughter contacting PCP office. Per chart review, 09/14/24 OV ASSESSMENT: Triage done by daughter without patient present Symptom Description / Location: Started Wednesday Daughter states he is over off Brain fog Sounds and looks very weak Decreased Appetite, still drinking Lethargic Denies chest pain and shortness of breath Pain: Caller denies pain. Fever: Denies fever. Treatment / Response: No reported treatment. RECOMMENDATION: Daughter doesn't know patients medications so those were not reviewed. Daughter told when to call us back. Verbalized understanding. Scheduled for the first appointment in the office. Caller agreeable to disposition: go to office now. Care advice provided per triage guideline. Caller verbalized understanding. Appointment Scheduled. All Patient Appointments Date & Time Provider Department Dept Phone 09/26/2024 3:30 PM Giselle Mathew [facility] - Primary Care [facility] [phone] 12/28/2024 11:00 AM Blade Schaefer [facility] - Primary Care - [place] [phone] - See care advice and disposition for Guideline. First positive answer recorded, all responses to prior questions were negative. If symptoms increase, change or if new symptoms develop, call your health care provider or call back. Recommendations were based on caller information and is not a diagnosis. Verified and reviewed all triage information with caller. Reason for Disposition MODERATE weakness (e.g., interferes with work, school, normal activities) and cause unknown (Exceptions: Weakness from acute minor illness or from poor fluid intake; weakness is chronic and not worse.) Protocols used: Weakness (Generalized) and Zlettud-E-CP * Telephone Encounter - Marie Freeman - 09/26/2024 8:10 AM CDT Symptoms: Lethargic (Tired), Weakness Outcome: Transfer to chief operating engineer queue Reason: Started within the past 3 days The caller accepted this outcome. Caller Denied: * Weakness on only one side of body or face that started within the past 24 hours * Acting confused * Hard to wake up * Trouble walking * Caused by head injury * Can't stand (unless normally can't stand) documented in this encounter Plan of Treatment Upcoming Encounters Date Type Department Care Team (Late st Contact Info) Description 10/24/2024 11:15 AM CDT Office Visit [facility] Primary Care - [place] [address] [place] [address] Blade Schaefer MD [address] [place] [address] 12/28/2024 11:00 AM CDT Office Visit [facility] - [facility] Care - [place] [address] [place] [address] Blade Schaefer MD [address] [place] [address] documented as of this encounter Visit Diagnoses Not on filedocumented in this encounter Additional Health Concerns Assessment Noted Time PHQ-9 Depression Total Score: 9 09/15/19 25 11:19 AM CDT documented as of this encounter Care Teams Car Refinisher Relationship Specialty Start Date End Date Blade Schaefer MD [address] [place] [address] PCP - General Internal Medicine 04/16/17 Amor Graham MD [address] [facility] [address] Consulting Physician Cardiovascular Disease - Cardiology 04/16/17 Catia Martinez PAC [address] [facility] [place] [address] Physician Elect Equip Maint Eng Orthopaedic Surgery 12/09/20 Mary Prieto MD Consulting Physician Ophthalmology 05/06/17 Oxana Daniel OD Consulting Physician Optometry 12/27/23 documented as of this encounter
--- OUTSIDE RECORDS SUMMARY | 2024-09-27 09:50 | XMS_ITS | Encounter Summary ---
Author Organization [facility] Address [address] [place] [address] Phone Care Team Providers Care Carver And Checkerer Specials Name Role Phone Blade Schaefer MD Primary Care Provider [phone] Amor Graham MD Unavailable [phone] Catia Martinez Unavailable [phone] Liban Mary MD Unavailable [phone] Reason for Visit * Reason Onset Date Comments Medication Refill Medication Refill 12/15/2019 Encounter Details Date Type Department Care Team (Late st Contact Info) Description 12/11/2019 Refill [facility] [address] [place] [address] Vicente Castaneda, RIGOBERTO Medication Refill; [...] 10/24/2024 11:15 AM CDT Office Visit [facility] - Primary Care - [place] [address] [place] [address] Blade Schaefer MD [address] [place] [address] 12/28/2024 11:00 AM CDT Office Visit [facility] - Primary Care - [place] [address] [place] [address] Blade Schaefer MD [address] [place] [address] documented as of this encounter Visit Diagnoses Not on filedocumented in this encounter Additional Health Concerns Assessment Noted Time PHQ-9 Depression Total Score: 0 11/15/19 20 9:00 AM CDT documented as of this encounter Care Teams Carver And Checkerer Specials Relationship Specialty Start Date End Date Blade Schaefer MD [address] [place] [address] PCP - General Internal Medicine 04/16/17 Amor Graham MD [address] [facility] [place] [address] Consulting Physician Cardiovascular Disease - Cardiology 04/16/17 Catia Martinez PAC [address] [facility] [place] [address] Orthopaedic Surgery 12/09/20 Liban Mary MD [address] [place] [address] Consulting Physician Ophthalmology 06/11/21 12/26/23 Mary Prieto MD Consulting Physician Ophthalmology 05/06/17 Oxana Daniel OD Consulting Physician Optometry 12/27/23 documented as of this encounter
--- OUTSIDE RECORDS SUMMARY | 2024-09-27 09:50 | XMS_ITS | Encounter Summary ---
Author Organization [facility] Address [address] [place] [address] Phone Care Team Providers Care Unit Manager [employer]venience Stores Name Role Phone Blade Schaefer MD Primary Care Provider [phone] Aomr Graham MD Unavailable [phone] Catia Martinez PAC Unavailable [phone] Liban Mary MD Unavailable [phone] Reason for Visit * Reason Comments Medication Refill Encounter Details Date Type Department Care Team (Late st Contact Info) Description [facility]/11[facility] [address] [place] [address] Blade Schaefer MD [address] [place] [address] Medication Refill Social History Tobacco [...] COVID-19? No / Unsure 06/11/2020 8:37 AM INSIDE METER TESTER documented as of this encounter Miscellaneous Notes * Telephone Encounter - Ramandeep Hermosillo RN - 06/11/2020 10:33 AM INSIDE METER TESTER Medication approved and signed per standing order protocol. DE METER TESTER documented in this encounter Plan of Treatment Upcoming Encounters Date Type Department Care Team (Late st Contact Info) Description 10/24/2024 11:15 AM CDT [facility] [place] [address] [place] [address] Blade Schaefer MD [address] [place], [place] [address] 12/28/2024 11:00 AM CDT Office Visit [facility] - [place] [address] [place] [address] Blade Schaefer MD [address] [place] [address] documented as of this encounter Visit Diagnoses Not on filedocumented in this encounter Additional Health Concerns Assessment Noted Time PHQ-9 Depression Total Score: 0 06/11/19 21 8:00 AM INSIDE METER TESTER documented as of this encounter Care Teams Unit Manager Convenience Stores Relationship Specialty Start Date End Date Blade Schaefer MD [address] [place], [place] [phone] PCP - General Internal Medicine 04/16/17 Amor Graham MD [address] [facility] [place] [address] Consulting Physician Cardiovascular Disease - Cardiology 04/16/17 Catia Martinez PAC [address] [facility] [place] [address] Physician Architectural Coating Finisher Orthopaedic Surgery 12/09/20 Liban Mary MD [address] [place] [address] Consulting Physician Ophthalmology 06/11/21 12/26/23 Mary Prieto MD Consulting Physician Ophthalmology 05/06/17 Oxana Daniel OD Consulting Physician Optometry 12/27/23 documented as of this encounter
--- OUTSIDE RECORDS SUMMARY | 2024-09-27 09:50 | XMS_ITS | Clinical Summary ---
Author Organization [facility] Address [address] [place] [address] Care Team Providers Care Business Services Coordinator Name Role Phone Blade Schaefer MD Primary Care Provider + Allergies Active Allergy Reactions Criticality Noted Date Comments Clindamycin Hives Medium 12/28/2016 Penicillins Tetanus Vaccines And Toxoid Medications omega-3 fatty acids-fish oil 340-1,000 mg capsule 0 0 Active cg-fwb-zzmts acid-lutein (CENTRUM SILVER) 400-250 mcg tablet,chewabl e [...] Description 09/05/2024 8:15 AM CDT Ancillary Procedure [place] Porcelain Finish Sprayer [address] [place] [phone] SSS (sick sinus syndrome) (HCC); Atrial [...] on file Legal Sex Male 12:36 AM ENGINEER FIRST ASSISTANT Gender Identity Not on file Sexual Orientation Not on file Obstetrics History Last Filed Vital Signs Vital Sign Reading Time Taken Comments Blood Pressure 152/68 06/08/2024 10:46 AM ENGINEER FIRST ASSISTANT Pulse 70 06/08/2024 10:46 AM ENGINEER FIRST ASSISTANT Temperature 36.7 C (98.1 F) 04/17/2021 11:01 AM ENGINEER FIRST ASSISTANT Respiratory Rate 18 06/08/2024 10:46 AM ENGINEER FIRST ASSISTANT Oxygen Saturation 95% 04/30/2022 11:47 AM ENGINEER FIRST ASSISTANT Inhaled Oxygen Concentration - - Weight 77.1 kg (170 lb) 06/08/2024 10:46 AM ENGINEER FIRST ASSISTANT Height 180.3 cm (5' 11 ) 06/08/2024 10:46 AM ENGINEER FIRST ASSISTANT Body Mass Index 23.71 06/08/2024 10:46 AM ENGINEER FIRST ASSISTANT Plan of Treatment Health Maintenance Due Date [...] the original result were not included. 09/05/2024 [place] quarterly remote device check NOTE The following shows snippets from the complete quarterly report. The complete report in its entirety is attached to this Result Text in Suppression Crew Leader. Presenting EGM Last in-office check 06/08/2024 6 [...] MD Bibiana Graham MD CV CARDIAC SERVICES HI OCEDURES Final Result from Last 3 Months Insurance [place] [id number] UHC MEDICARE ADVANTAGE [facility] MEDICARE ADVANTAGE Care Teams Business Services Coordinator Relationship Specialty Start Date End Date Blade Schaefer MD PCP - General 06/19/19
--- OUTSIDE RECORDS SUMMARY | 2024-09-27 09:50 | XMS_ITS | Encounter Summary ---
Author Organization [facility] Address [address] [place] [address] Phone Care Team Providers Care Insurance Business Analyst Name Role Phone Blade Schaefer MD Primary Care Provider [phone] Amor Graham MD Unavailable [phone] Catia Martinez Unavailable [phone] Reason for Visit * Reason Comments Medication Refill Encounter Details Date Type Department Care Team (Late st Contact Info) Description 09/27/2024 Refill [facility] - Primary Care - [place] [address] [place] [address] Blade Schaefer MD [address] [place] [address] Medication Refill Social History Tobacco Use Types Packs/Day Years Used Date Smoking Tobacco: Some Days Cigars Smokeless Tobacco: Never Comments:Smokes a cigar ever y once and a while Alcohol Use Standard Drinks/Week Comments Yes 5 (1 standard drink = 0.6 oz pur e alcohol) Rarely [facility] Utilities Answer Date Recorded In the past 12 months has e [employer], gas, oil, or water company threatened to [...] declined 09/14/2024 How often do you attend moravian or anglican serv ices? Patient declined 09/14/2024 Do you belong to any clubs o r organizations such as moravian groups, unions, fraternal or athletic groups, or [...] Total Score - Questions 1-9 9 08/29 [facility] - Occupational [...] any time in the past [address] [facility], were you homeless or living in a senior living (including now)? Patient declined 09/14/2024 Sex and Gender Information Value Date Recorded Sex Assigned at Male 01/11/2023 11:12 AM CDT Legal Sex Male 7:59 PM CDT Gender Identity Male 01/11/2023 11:12 AM CDT Sexual Orientation Not on file documented as of this encounter Miscellaneous Notes * Telephone Encounter - Blade Schaefer MD - 09/27/2024 9:42 AM CDT Refill request approved. * Telephone Encounter - Celi Peralta RN - 09/27/2024 9:39 AM CDT Medication failed the protocol, provider to review and approve the medication order if appropriate. Requested Prescriptions Pending Prescriptions Disp Refills DULoxetine (CYMBALTA) [address] Particles [Pharmacy Med Name: DULOXETINE HCL DR 60 MG CAP] 90 Capsule 1 Sig: TAKE 1 CAPSULE BY MOUTH EVERY DAY AT NIGHT SNRI (6 Month Refill Only) Protocol Failed - 09/27/2024 9:39 AM Failed - Has an encounter in the past 6 months with a depression or anxiety visit diagnosis Passed - Visit with relevant provider in past 6 months or upcoming 90 days Recent Visits Date Type Provider Dept 09/26/24 Office Visit Giselle Mathew, MEDIA MANAGER, PRODUCE INSPECTOR [facility] 09/14/24 Office Visit Blade Schaefer MD [facility] 06/26/24 Office Visit Giselle Mathew, MEDIA MANAGER, PRODUCE INSPECTOR [facility] Showing recent visits within past 182 days and meeting all other requirements Future Appointments Date Type Provider Dept 10/24/24 Appointment Blade Schaefer MD [facility] Showing future appointments within next 90 days and meeting all other requirements Passed - Patient has established therapy with Serotonin-Norepinephrine Reuptake Inhibitors for at least 6 months documented in this encounter Plan of Treatment Upcoming Encounters Date Type Department Care Team (Late st Contact Info) Description 10/24/2024 11:15 AM CDT Office Visit [facility] Primary Care - [place] [address] [place] [address] Blade Schaefer MD [address] [place] [address] 12/28/2024 11:00 AM CDT Office Visit [facility] - [place] [address] [place] [address] Blade Schaefer MD [address] [place] [address] documented as of this encounter Visit Diagnoses Diagnosis Chronic midline low back pain without sciatica documented in this encounter Additional Health Concerns Assessment Noted Time PHQ-9 Depression Total Score: 9 09/15/19 25 11:19 AM CDT documented as of this encounter Care Teams Insurance Business Analyst Relationship Specialty Start Date End Date Blade Schaefer MD [address] [place] [address] PCP - General Internal Medicine 04/16/17 Amor Graham MD [address] [facility] [place] [address] Consulting Physician Cardiovascular Disease - Cardiology 04/16/17 Catia Martinez PAC [address] [place] [address] [place] [address] Physician Manager Telemetry Orthopaedic Surgery 12/09/20 Mary Prieto MD Consulting Physician Ophthalmology 05/06/17 Oxana Daniel OD Consulting Physician Optometry 12/27/23 documented as of this encounter
--- OUTSIDE RECORDS SUMMARY | 2024-09-27 09:50 | XMS_ITS | Referral Summary ---
Author Organization [facility] Address [address] [place] [address] Care Team Providers Care Print Cutter Name Role Phone Blade Schaefer MD Primary Care Provider + Encounters Date Type Department Care Team Description 09/05/2024 8:15 AM CDT Ancillary Procedure [facility] Chief Executive Officer [address] [place] [id number] SSS (sick sinus syndrome) (HCC); Atrial fibrillation, unspecified type (HCC); Presence of cardiac pacemaker from Last 3 Months Allergies Active Allergy Reactions Criticality Noted Date Comments Clindamycin Hives Medium 12/28/2016 Penicillins Tetanus Vaccines And Toxoid Medications omega-3 fatty acids-fish oil 340-1,000 mg capsule 0 0 Active ye-fxr-vphaa acid-lutein (CENTRUM SILVER) 400-250 mcg tablet,chewabl e [...] on file Legal Sex Male 12:36 AM BOILER/CHILLER TECHNICIAN Gender Identity Not on file Sexual Orientation Not on file Last Filed Vital Signs Vital Sign Reading Time Taken Comments Blood Pressure 152/68 06/08/2024 10:46 AM BOILER/CHILLER TECHNICIAN Pulse 70 06/08/2024 10:46 AM BOILER/CHILLER TECHNICIAN Temperature 36.7 C (98.1 F) 04/17/2021 11:01 AM BOILER/CHILLER TECHNICIAN Respiratory Rate 18 06/08/2024 10:46 AM BOILER/CHILLER TECHNICIAN Oxygen Saturation 95% 04/30/2022 11:47 AM BOILER/CHILLER TECHNICIAN Inhaled Oxygen Concentration - - Weight 77.1 kg (170 lb) 06/08/2024 10:46 AM BOILER/CHILLER TECHNICIAN Height 180.3 cm (5' 11 ) 06/08/2024 10:46 AM BOILER/CHILLER TECHNICIAN Body Mass Index 23.71 06/08/2024 10:46 AM BOILER/CHILLER TECHNICIAN Plan of Treatment Not on file Procedures [...] is attached to this Result Text in Internetworking Technician. Presenting EGM Last in-office check 06/08/2024 6 [...] MD Bibiana Graham MD CV CARDIAC SERVICES MD OCEDURES Final Result from Last 3 Months Insurance [facility] MEDICARE ADVANTAGE [facility] Address: [facility] [address] [place] [address] [facility] MEDICARE ADVANTAGE [facility] Address: [address] [address] [facility] MEDICARE ADVANTAGE [facility] Address: [facility] [address] [place] [address] Care Teams Print Cutter Relationship Specialty Start Date End Date Blade Schaefer MD PCP - General 06/19/19
[2024-09-27 09:53] LABS: Basophils Absolute Auto 0.06 K/mm3 (0.00-0.10); Basophils Percent Auto 0.7 % (0.0-1.0); Eosinophils Absolute Auto 0.64 K/mm3 (0.02-0.50); Hematocrit 42.4 % (37.0-46.0); Hemoglobin 13.8 g/dL (12.4-15.3); Immature Granulocyte Absolute 0.05 K/mm3 (0.00-0.00); Immature Granulocyte Percent A 0.5 % (0.0-0.0); Lymphocytes Absolute Auto 2.61 K/mm3 (1.10-4.50); Lymphocytes Percent Auto 28.7 % (18.0-42.0); Mean Corpuscular HGB Conc 32.5 g/dL (32-36); Mean Corpuscular Hemoglobin 31.9 pg (27.0-31.0); Mean Corpuscular Volume 98.1 fL (78.0-102.0); Monocytes Percent Auto 14.3 % (2.0-11.0); Neutrophils Absolute Auto 4.44 K/mm3 (1.70-7.20); Neutrophils Percent Auto 48.8 % (50.0-70.0); Platelet Count Result 215 K/mm3 (150-420); Red Blood Count 4.32 M/mm3 (4.70-6.10); Red Cell Distribution Width 12.6 % (11.6-14.4); White Blood Count 9.1 K/mm3 (4.8-10.8)
[2024-09-27 10:41] LABS: Alanine Aminotransferase 24 U/L (16-63); Albumin Level 3.2 g/dL (3.4-5.0); Alkaline Phosphatase 146 U/L (46-116); Anion Gap 9 mmol/L (4-12); Aspartate Amino Transferase 28 U/L (15-37); Bilirubin,Total 0.7 mg/dL (0.00-1.00); Blood Urea Nitrogen 41 mg/dL (7-18); Calcium 8.9 mg/dL (8.5-10.1); Carbon Dioxide 28 mmol/L (21-32); Chloride 104 mmol/L (98-108); Estimated Glomerular Filt Rate 34; Glucose 96 mg/dL (70-99); Osmolality Calculated 302 mOsm/kg (285-295); Potassium 5.3 mmol/L (3.5-5.1); Sodium 141 mmol/L (136-145); Total Protein 6.3 g/dL (6.4-8.2)
[2024-09-27 15:17] LABS: Prothrombin Time 39.1 Seconds (11.1-14.7)
== END 2024-09-27 09:13 | disposition home or self-care (01) ==
PROVIDERS: PCP Internal Medicine; Visit Provider Internal Medicine
DX: I48.11 Longstanding persistent atrial fibrillation (principal)
CPT/HCPCS: 36415; 80053; 85025; 85610

== ENCOUNTER 2024-10-04 10:43 | Outpatient (CLI) | payer MEDICARE, SELFPAY ==
[2024-10-04 11:26] LABS: INR 3.1
--- OUTSIDE RECORDS SUMMARY | 2024-10-04 11:41 | XMS_ITS | Encounter Summary ---
Author Organization [facility] Address [address] [place] [address] Phone Care Team Providers Care Crushing Machine Operator Name Role Phone Blade Schaefer MD Primary Care Provider [phone] Amor Graham MD Unavailable [phone] Catia Martinez [facility] Unavailable [phone] Liban Mary MD Unavailable [phone] Reason for Visit * Reason Comments Medication Refill Encounter Details Date Type Department Care Team (Late st Contact Info) Description 06/18/[address] [facility] - [facility] [place] - [place] [address] [place] [address] Blade Schaefer MD [address] [place] [address] Medication Refill Social History Tobacco [...] prescription was reordered on 04/01/2023. dose changed [employer] documented in this encounter Plan of Treatment Upcoming Encounters Date Type Department Care Team (Late st Contact Info) Description 10/24/2024 11:15 AM CDT Office Visit [facility] [place] [address] [place] [address] Blade Schaefer MD [address] [place] [address] 12/28/2024 11:00 AM CDT Office Visit [facility] [place] [address] [place] [address] Blade Schaefer MD [address] [place] [address] documented as of this encounter Visit Diagnoses Diagnosis Longstanding persistent atrial fibrillation (HCC) documented in this encounter Additional Health Concerns Assessment Noted Time PHQ-9 Depression Total Score: 0 06/16/19 24 9:52 AM [employer] documented as of this encounter Care Teams Crushing Machine Operator Relationship Specialty Start Date End Date Blade Schaefer MD [address] [place] [address] PCP - General Internal Medicine 04/16/17 Amor Graham MD [address] [place] [address] Consulting Physician Cardiovascular Disease - Cardiology 04/16/17 Catia Martinez PAC [address] [place] [address] Physician Senior Facilities Manager Orthopaedic Surgery 12/09/20 Liban Mary MD [address] [place] [address] Consulting Physician Ophthalmology 06/11/21 12/26/23 Mary Prieto MD Consulting Physician Ophthalmology 05/06/17 Oxana Daniel OD Consulting Physician Optometry 12/27/23 documented as of this encounter
--- OUTSIDE RECORDS SUMMARY | 2024-10-04 11:41 | XMS_ITS | Encounter Summary ---
Author Organization [facility] Address [address] [place] [address] Phone Care Team Providers Care Pot Washer Name Role Phone Blade Schaefer MD Primary Care Provider [phone] Amor Graham MD Unavailable [phone] Catia Martinez Unavailable [phone] Liban Mary MD Unavailable [phone] Reason for Visit * Reason Onset Date Comments Medication Refill Medication Refill 12/15/2019 Encounter Details Date Type Department Care Team (Late st Contact Info) Description 12/11/2019 Refill [facility] [place] [address] [place] [address] Vicente Castaneda, RIGOBERTO Medication Refill; [...] Description 10/24/2024 11:15 AM CDT Office Visit [facility] - [place] - [place] [address] [place] [address] Blade Schaefer MD [address] [place] [address] 12/28/2024 11:00 AM CDT Office Visit [facility] - [place] - [place] [address] [place] [address] Blade Schaefer MD [address] [place] [address] documented as of this encounter Visit Diagnoses Not on filedocumented in this encounter Additional Health Concerns Assessment Noted Time PHQ-9 Depression Total Score: 0 11/15/19 20 9:00 AM CDT documented as of this encounter Care Teams Pot Washer Relationship Specialty Start Date End Date Blade Schaefer MD [address] [place] [address] PCP - General Internal Medicine 04/16/17 Amor Graham MD [address] [facility] [place] [address] Consulting Physician Cardiovascular Disease - Cardiology 04/16/17 Catia Martinez PAC [address] [facility] [place] [address] Physician Health Care Sanitary Technician Orthopaedic Surgery 12/09/20 Liban Mary MD [address] [place] [address] Consulting Physician Ophthalmology 06/11/21 12/26/23 Mary Prieto MD Consulting Physician Ophthalmology 05/06/17 Oxana Daniel OD Consulting Physician Optometry 12/27/23 documented as of this encounter
--- OUTSIDE RECORDS SUMMARY | 2024-10-04 11:42 | XMS_ITS | Clinical Summary ---
Author Organization [facility] Address [address] [address] Phone Care Team Providers Care Electric Sealing Machine Operator Name Role Phone Blade Schaefer MD Primary Care Provider [phone] Amor Graham MD Unavailable [phone] Catia Martinez Unavailable [phone] Allergies Active Allergy Reactions Criticality Noted Date [...] by mouth in the evening 021 Active [place]-3 Fatty Acids (FISH OIL PO) Take by [...] Atrial Fibrillation 90 Tablet 1 025 Active DULoxetine (CYMBALTA) [address] ParticlesIndica tions:Chronic midline low back pain without sciatica Take 1 Capsule by mouth nightly. 90 Capsule 1 024 2024 Discontinued doxycycline hyclate (VIBRA-TABS) 100 MG Tablet 025 2024 Discontinued(T herapy completed) doxycycline hyclate (VIBRAMYCIN) 100 MG Capsule Take 1 Capsule by mouth 2 times daily for 7 days. 14 Capsule 025 2024 DULoxetine (CYMBALTA) [address] ParticlesIndica tions:Chronic midline low back pain without sciatica TAKE 1 CAPSULE BY MOUTH EVERY DAY AT NIGHT 90 Capsule 1 025 2024 Discontinued(M ed List Clean Up) Active Problems Problem Noted Date Diagnosed Date [...] Encounters Date Type Department Care Team Description 09/28/[address] [address] Blade Schaefer MD Results 09/28/[address] [facility] [address] [place] [address] Blade Schaefer MD Anticoagulation Monitoring (INR) 09/27/2024 Refill [place] [address] [place] [address] Blade Schaefer MD Medication Refill 09/27/2024 Refill [place] [address] [place] [address] Blade Schaefer MD Medication Refill 09/26/2024 3:30 PM CDT Office Visit [place] [address] [place] [address] Giselle Mathew, AEROSPACE TECHNICIAN, ELECTRICAL INSTALLATION INSPECTOR Other fatigue (Primary Dx); Weight loss; Laceration of left hand, foreign body presence unspecified, subsequent encounter; Urine frequency Discharge Disposition: Discharged to home or Selfcare 09/26/2024 Travel 09/26/2024 Nurse Triage [address] [address] Blade Schaefer MD Advice Only; Generalized Weakness 09/14/2024 11:30 AM CDT Office Visit [place] [address] [place] [phone] Blade Schaefer MD Laceration of left hand without foreign body, subsequent encounter (Primary Dx) Discharge Disposition: Discharged to home or Selfcare 09/14/2024 Travel 09/07/2024 Refill [place] [address] [place] [place] [address] Blade Schaefer MD Medication Refill 09/06/2024 Telephone [place] [address] [place] [phone] Blade Schaefer MD Anticoagulation Monitoring (INR) 08/23/2024 Telephone [place] [address] [place] [address] Blade Schaefer MD Anticoagulation Monitoring (INR) 08/13/2024 Refill [place] [address] [place] [address] Blade Schaefer MD Medication Refill 08/10/2024 Telephone [place] [address] [place] [address] Blade Schaefer MD Anticoagulation Monitoring (INR) 07/26/2024 Telephone [place] [address] [place] [address] Blade Schaefer MD Results (INR) from Last 3 Months Immunizations Immunization Administration Dates Next Due Covid-19, Mrna, Lnp-s, Pf, 3 0 Mcg/0.3 Ml Dose (Pfizer) 07/23/2020,07/02/2020 Covid-19, Mrna, Lnp-s, Pf, 3 0 Mcg/0.3 Ml Dose, Kamran-sucrose ([employer] camacho top) 03/16/2024 Covid-19, Mrna, Lnp-s, Pf, [...] = 0.6 oz pur e alcohol) Rarely [employer] Answer Date Recorded In the past 12 months has [employer], oil, or water [employer] threatened to shut off services in your home? Patient declined 09/14/2024 Social Connection and Isolation Panel [NHANES] A nswer Date Recorded In a typical week, how many times do you talk on the phone with family, friends, or neighbors? Patient declined 09/14/2024 How often do you get togethe r with friends or relatives? Patient declined 09/14/2024 How often do you attend jew or alevism serv ices? Patient declined 09/14/2024 Do you [...] Total Score - Questions 1-9 9 08/29 [facility] - Occupational Stress Questionnaire Answer Date [...] time in the past 12 m [place], were you homeless or living in a intermediate (including now)? Patient declined 09/14/2024 Sex and [...] Description 10/24/2024 11:15 AM CDT Office Visit [facility] [place] [address] [place] [address] Blade Schaefer MD [address] [place] [address] 12/28/2024 11:00 AM CDT Office Visit [facility] [place] [address] [place] [address] Blade Schaefer MD [address] [place] [address] Health Maintenance Due Date Last Done Comments TdaP Immunization 1934 Respiratory Syncytial Virus (RSV) Immunization (Adult) (1 - 1-dose 75+ series) 2009 SARS-COV-2 Immunization ( season) 2024 03/16/2024, 03/24/2023, 03/05/2022, Additional history exists Pneumococcal Immunization (50+ years) Completed 03/06/2017, 06/02/2016, 05/31/2003 Pneumococcal Immunization Combined Discontinued 03/06/2017, 06/02/2016, 05/31/2003 Zoster Immunization Completed 05/15/2021, Hepatitis C Virus (HCV) Screening Completed 06/16/2023 Influenza Immunization Completed 4, 03/24/2023, 03/05/2022, Additional history exists Hepatitis B Immunization Aged Out No longer eligible based on patient's age to complete this topic Human Papillomavirus (HPV) Immunization Aged Out No longer eligible based on patient's age to complete this topic Meningococcal Immunization (ACWY) Aged Out No longer eligible based on patient's age to complete this topic Rotavirus Immunization Aged Out No lo nger eligible based on patient's age to complete this topic Medical Devices Implanted Type Area Stonemason Supervisor Device Identifier Shelf Expiration Date Model / Serial / Lot Clip 360 Resolution 235cm - [id number] Implanted:Qty: 4 on 04/21/2019 by Aneesh Dawson DO at [facility] IMPLANT [email or web address] 10/02/2021 [id number] / [id number] / [id number] Procedures Procedure Name Priority Date/Time Associated Diagnosis Comments EXTERNAL INR (PT) Routine 09/27/2024 COMPLETE BLOOD COUNT (CBC) WITH DIFF 09/27/2024 12:00 AM CDT CMP (COMPREHENSIVE METABOLIC PANEL) 09/27/2024 12:00 AM CDT POCT UA AUTOMATED W/O MICRO Routine 09/26/2024 3:50 PM CDT Urine frequency EXTERNAL INR (PT) Routine 09/06/2024 PROTIME (PT) (PROTHROMBIN TIME) 09/06/2024 12:00 AM CDT EXTERNAL INR (PT) Routine 08/23/2024 PROTIME (PT) (PROTHROMBIN TIME) 08/23/2024 12:00 AM CDT EXTERNAL INR (PT) Routine 08/07/2024 PROTIME (PT) (PROTHROMBIN TIME) 08/07/2024 12:00 AM CDT PROTIME (PT) (PROTHROMBIN TIME) 07/26/2024 12:00 AM COSMETIC ASSEMBLER HEPATITIS C ANTIBODY Routine 06/16/2023 10:12 AM COSMETIC ASSEMBLER Encounter for hepatitis C screening test for low risk patient from Last 3 Months or Most Recently Relevant to Health Maintenance Results * CMP (COMPREHENSIVE METABOLIC PANEL) (09/27/2024 12:00 AM CDT) 09/27/2024 Provider Scan CHEMISTRY ORDERABLES Final Resul t SCAN * COMPLETE BLOOD COUNT (CBC) WITH DIFF (09/27/2024 12:00 AM CDT) 09/27/2024 Provider Scan HEMATOLOGY ORDERABLES Final Resu lt SCAN * (ABNORMAL) EXTERNAL INR (PT) (09/27/2024) Only the most recent of4 resultswithin the time period is included. INR 4.00(A) 0.90 - 1.10 Blood Historical Provider POINT OF CARE TESTING (MURRAY CURRAN) Final Result * POCT UA AUTOMATED W/O MICRO (09/26/2024 [...] Clear Urine 09/26/2024 3:50 PM CDT us Gisellesteffi Mathew APRN, ELECTRICAL INSTALLATION INSPECTOR POINT OF CARE TESTING (MAN UAL) Final Result * PROTIME (PT) (PROTHROMBIN TIME) (09/06/2024 12:00 AM CDT) Only the most recent of4 resultswithin the time period is included. INR 3.0 SCAN 09/06/2024 Provider Scan HEMATOLOGY ORDERABLES Final Resu lt Performing Organization Address City/[facility] Co de Phone Number SCAN * HEPATITIS C ANTIBODY (06/16/2023 10:12 AM COSMETIC ASSEMBLER) hepatitis C antibody 0.10 <1 S/CO [facility] ARCH [id number] B 06/17/2023 2:15 AM COSMETIC ASSEMBLER [facility] Comment: Signal/Cutoff ratio < 0.79 is Nondetected Signal/Cutoff ratio 0.80-0.99 is Grayzone Signal/Cutoff ratio > 0.99 is Detected Supplemental assays are recommended if signal/cutoff ratio is >/=1.00. Signal/cutoff ratio result >/= 5.00 is 97% predictive of positivity for recombinant immunoblot assay (RIBA) and will be reported to the [place] Department of Public Health as required. Blood Venipuncture / Unknown 06/16/2023 10:12 AM COSMETIC ASSEMBLER 06/16/2023 10:12 AM COSMETIC ASSEMBLER us Blade Schaefer MD CHEMISTRY ORDERABLES Jinny l Result Performing Organization Address City/[facility]/ZIP Co de Phone Number [facility] [address] [place] [address], [place] from Last 3 Months or Most Recently Relevant to Health Maintenance Insurance MEDICARE C [facility] Care Teams Electric Sealing Machine Operator Relationship Specialty Start Date End Date Blade Schaefer MD [address] [place] [address] PCP - General Internal Medicine 04/16/17 Amor Graham MD [address] [facility] [place] [address] Consulting Physician Cardiovascular Disease - Cardiology 04/16/17 Catia Martinez PAC [address] [facility] [place] [address] Physician Medical Records Field Technician Orthopaedic Surgery 12/09/20 Mary Prieto MD Consulting Physician Ophthalmology 05/06/17 Oxana Daniel OD Consulting Physician Optometry 12/27/23
--- OUTSIDE RECORDS SUMMARY | 2024-10-04 11:42 | XMS_ITS | Encounter Summary ---
Author Organization [facility] Address [address] [place] [address] Phone Care Team Providers Care Commercial Light Fixture Assembler Name Role Phone Blade Schaefer MD Primary Care Provider [phone] Amor Graham MD Unavailable [phone] Catia Martinez [facility] Unavailable [phone] Liban Mary MD Unavailable [phone] Reason for Visit * Reason Comments Medication Refill Encounter Details Date Type Department Care Team (Late st Contact Info) Description 09/28/2023 Refill [facility] - [facility] - [place] [address] [place] [address] Blade Schaefer MD [address] [place] [address] Medication Refill Social History Tobacco [...] Dept 08/13/23 Office Visit Blade Schaefer MD [facility] 07/29/23 Office Visit Blade Schaefer MD [facility] 06/16/23 Office Visit Blade Schaefer MD [facility] 01/12/23 Office Visit Blade Schaefer MD [facility] 12/14/22 Office Visit Blade Schaefer MD [facility] Showing recent visits within past 365 days and meeting all other requirements Future Appointments Date Type Provider Dept 12/27/23 Appointment Blade Schaefer MD [facility] Showing future appointments within next 90 [...] Description 10/24/2024 11:15 AM CDT Office Visit [facility] [place] [address] [place] [address] Blade Schaefer MD [address] [place] [address] 12/28/2024 11:00 AM CDT Office Visit [facility] Primary [facility] [place] [address] [place] [address] Blade Schaefer MD [address] [place] [address] documented as of this encounter Visit Diagnoses Diagnosis Bilateral hip pain Pain in joint, pelvic region and thigh documented in this encounter Additional Health Concerns Assessment Noted Time PHQ-9 Depression Total Score: 0 06/16/19 24 9:52 AM SAP SOLUTIONS ARCHITECT documented as of this encounter Care Teams Commercial Light Fixture Assembler Relationship Specialty Start Date End Date Blade Schaefer MD [address] [place] [address] PCP - General Internal Medicine 04/16/17 GladysAmor chavez MD [address] [facility] [place] [address] Consulting Physician Cardiovascular Disease - Cardiology 04/16/17 Caita Martinez PAC [address] [place] [address] Physician Executive Vice President And Chief Operating Officer Orthopaedic Surgery 12/09/20 Liban Mary MD [address] [place] [address] Consulting Physician Ophthalmology 06/11/21 12/26/23 Mary Prieto MD Consulting Physician Ophthalmology 05/06/17 Oxana Daniel OD Consulting Physician Optometry 12/27/23 documented as of this encounter
--- OUTSIDE RECORDS SUMMARY | 2024-10-04 11:42 | XMS_ITS | Continuity of Care Document ---
Author Organization [employer] [facility] Address [address] [facility], [place], [facility] [address] [place] [address] Phone Care Team Providers Care Slide Developer Name Role Phone María RICHARDS, Ox[place] Unavailable [...] Providers Copied on Encounter Office/outpa tient Visit, [facility] [place] [address], [place], [place], [address], tel:[phone] SEC Dez RAYA Professional glaucoma, pressure check (chief complaint) Primary open-angle glaucoma, left eye, severe stagePrimary open-angle glaucoma, right eye, mild stagePseudoph emily of both eyesOther secondary cataract, right eyeDrusen (degenerative ) of macula, bilateralStab le branch retinal vein occlusion of left eyeHypertensi ve retinopathy of both eyes 5 María Daigle. [address], [address], [place], [place], [address], [place]. tel:[phone] Office/outpa tient Visit, [facility] [place] [address], [place], [place], [address], tel:[phone] SEC Dez RAYA Professional glaucoma, pressure check (chief complaint) Primary open-angle glaucoma, left eye, severe stagePrimary open-angle glaucoma, right eye, mild stagePseudoph emily of both eyesOther secondary cataract, right eyeDrusen (degenerative ) of macula, bilateralStab le branch retinal vein occlusion of left eyeHypertensi ve retinopathy of both eyes Oct-2 4 María OD Oxana. [facility] [employer], [address], [place], [place], [address], . tel:[phone] [facility], [address] [place] [address] [address], [place], [place], [address], [phone] SEC Dez RAYA Professional Complete Exam (chief complaint) Primary open-angle glaucoma, left eye, severe stagePrimary open-angle glaucoma, right eye, mild stagePseudoph emily of both eyesOther secondary cataract, right eyeVitreous degeneration, bilateralDrus en (degenerative ) of macula, bilateralStab le branch retinal vein occlusion of left eye Enirke- 4 María OD Oxana. [facility] [employer], [address], [place], [place], [address], . tel:[phone] Office/outpa tient Visit, [facility] [place], [address] [email or web address] [address], [place], [place], [address], [phone] SEC Dez RAYA Professional glaucoma, pressure check (chief complaint) Primary open-angle glaucoma, left eye, severe stagePrimary open-angle glaucoma, right eye, mild stagePseudoph emily of both eyesOther secondary cataract, right eye Fe-0 4 María OD Oxana. [facility] [employer], [address], [place], [place], [address], [place]. tel:[phone] Office/outpa tient Visit, [facility] [place], [address] [place], [place] [address]crest [address], [place], [place], [address], tel:+ SEC Dez RAYA Professional glaucoma, pressure check (chief complaint) Primary open-angle glaucoma, left eye, severe stagePrimary open-angle glaucoma, right eye, mild stagePseudoph emily of both eyesOther secondary cataract, right eye Oct- 3 María Daigle. [address] [place] [address], [address], [place], [place], [address], . tel:[phone] [employer] Analytics[facility] [facility], [address] [place] [address] [address], [place], [place], [address], [place] tel:[phone] [employer]ri RAYA Professional No Information Sep-2 3 Usman Louie. [address], [facility] [place], [address], [place]. tel:[phone] [facility], [address] [place] [address] [address], [place], [place], [address], tel:[phone] [employer] Dez RAYA Professional 6 month Complete (chief complaint) Primary open-angle glaucoma, left eye, severe stagePrimary open-angle glaucoma, right eye, mild stagePseudoph emily of both eyes Apr- 3 Usman Louie. [address], [address], [place], [place], [address], [place]. tel:[phone] Office/outpa tient Visit, [facility] [place], [address] [place] [address] [address], [place], [place], [address], [place] tel:[phone] [employer] Dez RAYA Professional glaucoma, pressure check (chief complaint) Primary open-angle glaucoma, left eye, severe stagePrimary open-angle glaucoma, right eye, mild stagePseudoph emily of both eyes Oct- 2 Usman Louie. [address], [place], [address], [place]. tel:[phone] Office/outpa tient Visit, [facility] [employer] [facility], [address] [place] [address] [address], [place], [place], [address], tel:[phone] SEC [employer] Professional 6 mo IOP check (chief complaint) Primary open-angle glaucoma, left eye, severe stagePrimary open-angle glaucoma, right eye, mild stagePseudoph emily of both eyes 2 María OD Oxana. [address] [place] [address], [address], [place], [place], [address], . tel:[phone] [facility] [employer] [facility] Center[facility], [address] [place] [address] [address], [place], [place], [address], tel:[phone] SEC Metropolitan App Professional 6 month Complete w/VF (chief complaint) Primary open-angle glaucoma, right eye, mild stagePrimary open-angle glaucoma, left eye, severe stagePseudoph emily of both eyesStable branch retinal vein occlusion of left eye 1 Usman Louie. [address], [facility] [place], [address], [place]. tel:[phone] Office/outpa tient Visit, [facility] [employer] [facility] Center[facility], [address] [place] [address] [address], [place], [place], [address], [phone] [employer] Professional 6 month IOP check (chief complaint) Primary open-angle glaucoma, right eye, mild stagePrimary open-angle glaucoma, left eye, severe stage Mar-0 1 Usman Louie. [address], [address], [place], [place], [address], [place]. tel:[phone] [facility] Center[facility], [address] [place] [address] [address], [place], [place], [address], [phone] SEC Metropolitan App Professional 6 month Complete w/VF (chief complaint) Primary open-angle glaucoma, right eye, mild stagePrimary open-angle glaucoma, left eye, severe stagePseudoph emily of both eyesOther secondary cataract, right eyeVitreous degeneration, right eyeRPE mottling of macula Sep-0 -202 0 Usman Louie. [address], [address], [place], [place], [address], [place]. tel:[phone] Office/outpa tient Visit, [facility], [address] [place] [address] [address], [place], [place], [address], [place] tel:[phone] SEC Dez RAYA Professional IOP Check (chief complaint) Primary open-angle glaucoma, left eye, severe stagePrimary open-angle glaucoma, right eye, mild stage Feb-1 0-202 0 Usman Louie. [address] [employer], [address], [place], [place], [address], [place]. tel:[phone] Office/outpa tient Visit, [facility], [address] [place] [address] [address], [place], [place], [address], [place] [phone] SEC Dez RAYA Professional glaucoma, pressure check (chief complaint) Primary open-angle glaucoma, left eye, severe stagePrimary open-angle glaucoma, right eye, mild stage Oct-0 2- 9 Starla OD Nile. [address] [place] [address], [address] [place] [address], [place], [address], [place]. tel:[phone] [facility], [address] [place] [address] [address], [place], [place], [address], [place] [phone] SEC Dez RAYA Professional Post-Op (chief complaint) Encounter for examination following surgery 0-201 9 Starla OD Nile. [facility], [address] [facility], [place], [address], [place]. tel:[phone] [facility], [address] [place] [address] [address], [place], [place], [address], [place] [phone] SEC Dez RAYA Professional Complete Exam (chief complaint) Primary open-angle glaucoma, right eye, mild stagePrimary open-angle glaucoma, left eye, severe stagePseudoph emily of both eyesOther secondary cataract, bilateral 9 Usman Louie. [address] [facility], [address], [place], [place], [address], [place]. tel:[phone] [facility], [address] [place] [address] [address], [place], [place], [address], [place] tel:[phone] SEC Dez [place] Professional No Information 9 Usman Louie. [address] [facility], [facility] A, [place], [place], [address], [place]. tel:[phone] Office/outpa tient Visit, [facility], [address] [place] [address] [address], [place], [place], [address], [place] tel:[phone] SEC Dez [place] Professional 3 mo IOP check (chief complaint) No Information 8 Ida Hernandez. [address] [place], [address], [place]. tel:[phone] Office/outpa tient Visit, [facility], [address], [place], [place], [address], [place] tel:[phone] SEC [place] Professional IOP Check (chief complaint) No Information 7 Ida Hernandez. [address] [place], [address], [place]. tel:[phone] Office/outpa tient Visit, [facility], [address] [place] [address] [address], [place], [place], [address], [place] tel:[phone] SEC [place] Professional 6 month Pressure check (chief complaint) No Information 7 Ida Hernandez. [address] [place], [address], [place]. tel:[phone] [facility], [address], [place], [place], [address], [place] tel:[phone] SEC [place] Professional Complete Exam (chief complaint) No Information 7 La Nean Carlin. [address], [address], [place], [place], [address], [place]. tel:[phone] Office/outpa tient Visit, [facility], [address] [place] [address] [address], [place], [place], [address], [place] tel:[phone] SEC Dez RAYA Professional 4 month IOP check. (chief complaint) No Information Feb-3 6 La Nena Carlin. [address], [address], [place], [place], [address], [place]. tel:[phone] Office/outpa tient Visit, [facility], [address] [place] [address] [address], [place], [place], [address], [place] tel:[phone] SEC Dez RAYA Professional 1 month IOP check (chief complaint) No Information 6 La Nena Carlin. [address], [address], [place], [place], [address], [place]. tel:[phone] Office/outpa tient Visit, [facility], [address] [place] [address] [address], [place], [place], [address], [place] tel:[phone] SEC Dez RAYA Professional 2 month IOP check, HVF 24-2, [place], ON OCT (chief complaint) No Information - 6 La Nena Carlin. [address], [address], [place], [place], [address], [place]. tel:[phone] [facility], [address] [place] [address] [address], [place], [place], [address], [place] tel:[phone] SEC Dez RAYA Professional Complete IOL check (chief complaint) No Information 6 La Nena Carlin. [address], [address], [place], [place], [address], [place]. tel:[phone] [facility], [address], [place], [place], [address], [place] tel:[phone] SEC [place] ELVER Professional Difficulty reading (chief complaint) No Information Feb-0 1-201 4 Wankum Tesfaye. [address] [employer], [address], [place], [place], [address], [place]. tel:[phone] [facility], [address] [address], [place], [place], [address], [place] tel:[phone] SEC Dez RAYA Professional No Information Nov-0 8-201 3 Wankum Tesfaye. [address] [employer], [address], [place], [place], [address], [place]. tel:[phone] [facility], [address], [place], [place], [address], [place] tel:[phone] SEC Dez RAYA Professional No Information Nov-0 3-201 3 Wankum Tesfaye. [address] [employer], [address] [place], [address], [place]. tel:[phone] [facility], [address], [place], [place], [address], [place] tel:[phone] SEC Dez RAYA Professional No Information September-1 6-201 2 Wankum Tesfaye. [address], [address] [place], [address], [place]. tel:[phone] [facility], [address], [place], [place], [address], [place] tel:[phone] SEC [place] ELVER Professional No Information May-1 2-201 1 Wankum Tesfaye. [address] [employer], [address] [place], [address], [place]. tel:[phone] Referring Provider: Tesfaye Swann, [address], [place], [address] . tel:[phone] [facility], [address], [place], [place], [address], tel:[phone] SEC Dez [place] Professional No Information Apr-2 9 1 La Nena Carlin. [address], [place], [place], [address], [place]. tel:[phone] Referring Provider: Tesfaye Swann, [address], [place], [address] . tel:[phone] [facility], [address], [place], [place], [address], [place] tel:[phone] [facility] [place] No Information Apr-2 8 1 [place] Ashish. [email or web address], [address], [place], [place], [address], [place]. tel:[phone] Referring Provider: Tesfaye Swann, [address], [place], [address] . tel:[phone] [facility], [address], [place], [place], [address], [place] tel:[phone] SEC [place] Jerri [facility] No Information Apr-2 1 [place] Ashish. [email or web address], [address], [place], [place], [address], [place]. tel:[phone] [facility], [address], [place], [place], [address], [place] tel:[phone] SEC Dez [place] Professional No Information Apr-2 0-201 1 La Nena Carlin. [address], [place], [place], [address], [place]. tel:[phone] [employer] [facility] [employer] [facility], [address] [email or web address], [place], [place], [address], [place] tel:[phone] SEC Dez ELVER Professional No Information Apr-0 6-201 1 Stanleymakayla Carlin. [address] [facility], [address], [place], [place], [address], [place]. tel:[phone] [employer] Eye [employer] [facility], [address] [email or web address] [address], [place], [place], [address], [place] tel:[phone] [facility] No Information Apr-0 5- 1 Antionette Ashish. [address] [employer], [address], [place], [place], [address], [place]. tel:[phone] [employer] [facility] [employer] [facility], [address] [email or web address] [address], [place], [place], [address], [place] tel:[phone] SEC Lisa Felix No Information Apr-0 4- 1 Antionette Ashish. [address] [employer], [address], [place], [place], [address], [place]. tel:[phone] Office/outpa tient Visit, [facility] [employer], [address] [email or web address], [place], [place], [address], [place] tel:[phone] SEC [place] ELVER Professional No Information Mar-0 8- 1 [place] Ashish. [address] [employer], [address], [place], [place], [address], [place]. tel:[phone] Family History Family Member Type Diagnosis Age At Onset Problem (finding) Family history of hyper tension Payers Payer name Insurance type Covered constitution party ID Aneudy mannyash(s) [facility] Mdcr Adv CI [id number] Social History Type Description Quantity Date Captured [...] well, continue same regimen. Refills sent to [facility]. Return in 3 months for IOP [...] problems. Start Latanoprost QHS OU, erx to [facility]. Return to clinic in 4-6 weeks for IOP check or sooner with problems. Primary open-angle g laucoma, right eye, mild stage - Educational material provided Related to Primary open-angle glaucoma, right eye, mild stage Follow up - 6 months for IOP [...] Start Timolol 0.5% QAM OS. Erx to [facility]. Return to clinic in 1 month [...]
--- OUTSIDE RECORDS SUMMARY | 2024-10-04 11:42 | XMS_ITS | Encounter Summary ---
Author Organization [facility] Address [address] [place] [address] Phone Care Team Providers Care Bit Tripoler Name Role Phone Blade Schaefer MD Primary Care Provider [phone] Amor Graham MD Unavailable [phone] Catia Martinez [facility] Unavailable [phone] Liban Mary MD Unavailable [phone] Reason for Visit * Reason Comments Medication Refill Encounter Details Date Type Department Care Team (Late st Contact Info) Description 09/09/2023 Refill [facility] - [facility] - [place] [address] [place] [address] Blade Schaefer MD [address] [place] [address] Medication Refill Social History Tobacco [...] order placed on 07/29/2023 9:57 AM Order [id number]: meloxicam (MOBIC) 15 MG Tablet (For orders [...] Dept 08/13/23 Office Visit Blade Schaefer MD [facility] 07/29/23 Office Visit Blade Schaefer MD [facility] 06/16/23 Office Visit Blade Schaefer MD [facility] 01/12/23 Office Visit Blade Schaefer MD [facility] 12/14/22 Office Visit Blade Schaefer MD [facility] Showing recent visits within past [...] Description 10/24/2024 11:15 AM CDT Office Visit [facility] [place] [address] [place] [address] Blade Schaefer MD [address] [place] [address] 12/28/2024 11:00 AM CDT Office Visit [facility] Primary [facility] [place] [address] [place] [address] Blade Schaefer MD [address] [place] [address] documented as of this encounter Visit Diagnoses Diagnosis Bilateral hip pain Pain in joint, pelvic region and thigh documented in this encounter Additional Health Concerns Assessment Noted Time PHQ-9 Depression Total Score: 0 06/16/19 24 9: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 documented as of this encounter Care Teams Bit Tripoler Relationship Specialty Start Date End Date Blade Schaefer MD [address] [place] [address] PCP - General Internal Medicine 04/16/17 Amor Graham MD [address] [facility] [address] [place] [address] Consulting Physician Cardiovascular Disease - Cardiology 04/16/17 Catia Martinez PAC [address] [facility] [place] [address] Physician Class A Truck Driver Orthopaedic Surgery 12/09/20 Liban Mary MD [address] [place] [address] Consulting Physician Ophthalmology 06/11/21 12/26/23 Mary Prieto MD Consulting Physician Ophthalmology 05/06/17 Oxana Daniel OD Consulting Physician Optometry 12/27/23 documented as of this encounter
--- OUTSIDE RECORDS SUMMARY | 2024-10-04 11:42 | XMS_ITS | Encounter Summary ---
Author Organization [facility] Address [address] [place] [address] Phone Care Team Providers Care Presales Consultant Name Role Phone Blade Schaefer MD Primary Care Provider [phone] Amor Graham MD Unavailable [phone] Catia Martinez PAC Unavailable [phone] Liban Mary MD Unavailable [phone] Reason for Visit * Reason Comments Medication Refill Encounter Details Date Type Department Care Team (Late st Contact Info) Description 06/11/2020 [facility] [address] [place] [address] Blade Schaefer MD [address] [place] [address] Medication Refill Social History Tobacco [...] COVID-19? 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 R ENERGY INSTALLATION MANAGER documented in this encounter Plan of Treatment Upcoming Encounters Date Type Department Care Team (Late st Contact Info) Description 10/24/2024 11:15 AM CDT [facility] [place] [address] [place] [address] Blade Schaefer MD [address] [place], [place] [address] 12/28/2024 11:00 AM CDT Office Visit [facility] Primary [facility] [place] [address] [place] [address] Blade Schaefer MD [address] [place] [address] documented as of this encounter Visit Diagnoses Not on filedocumented in this encounter Additional Health Concerns Assessment Noted Time PHQ-9 Depression Total Score: 0 06/11/19 21 8:00 AM SOLAR ENERGY INSTALLATION MANAGER documented as of this encounter Care Teams Presales Consultant Relationship Specialty Start Date End Date Blade Schaefer MD [address] [place], [place] [id number] PCP - General Internal Medicine 04/16/17 Amor Graham MD [address] [facility] [address] [place] [address] Consulting Physician Cardiovascular Disease - Cardiology 04/16/17 Catia Martinez PAC [address] [facility] [place] [address] Physician Certified Respiratory Therapist Orthopaedic Surgery 12/09/20 Liban Mary MD [address] [place] [address] Consulting Physician Ophthalmology 06/11/21 12/26/23 Mary Prieto MD Consulting Physician Ophthalmology 05/06/17 Oxana Daniel OD Consulting Physician Optometry 12/27/23 documented as of this encounter
--- OUTSIDE RECORDS SUMMARY | 2024-10-04 11:42 | XMS_ITS | Encounter Summary ---
Author Organization [facility] Address [address] [place] [address] Phone Care Team Providers Care Assessment Analyst Name Role Phone Blade Schaefer MD Primary Care Provider [phone] Amor Graham MD Unavailable [phone] Catia Martinez [facility] Unavailable [phone] Liban Mary MD Unavailable [phone] Reason for Visit * Reason Comments Medication Refill Encounter Details Date Type Department Care Team (Late st Contact Info) Description 08/20/2023 Refill [facility] - Primary Care - [place] [address] [place] [address] Blade Schaefer MD [address] [place] [address] Medication Refill Social History Tobacco [...] AM CDT Medication(s) refilled and signed per [facility] Chronic Medication Refill Standing Order for Pediatricand [...] Dept 08/13/23 Office Visit Blade Schaefer MD [facility] 07/29/23 Office Visit Blade Schaefer MD [facility] 06/16/23 Office Visit Blade Schaefer MD [facility] 01/12/23 Office Visit Blade Schaefer MD [facility] 12/14/22 Office Visit Blade Schaefer MD [facility] Showing recent visits within past 365 days [...] [facility] [place] [address] [place] [id number] Blade Schaefer MD [address] [place], [place] [id number] 12/28/2024 11:00 AM CDT Office Visit [facility] [place] [address] [place] [phone] Blade Schaefer MD [address] [place] [address] documented as of this encounter Visit Diagnoses Not on filedocumented in this encounter Additional Health Concerns Assessment Noted Time PHQ-9 Depression Total Score: 0 06/16/19 24 9:52 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 documented as of this encounter Care Teams Assessment Analyst Relationship Specialty Start Date End Date Blade Schaefer MD [address] [place] [address] PCP - General Internal Medicine 04/16/17 Amor Graham MD [address] [facility] [place] [address] Consulting Physician Cardiovascular Disease - Cardiology 04/16/17 Catia Martinez PAC [address] [facility] [place] [address] Physician Cable Installer Repairer Helper Orthopaedic Surgery 12/09/20 Liban Mary MD [address] [place] [address] Consulting Physician Ophthalmology 06/11/21 12/26/23 Mary Prieto MD Consulting Physician Ophthalmology 05/06/17 Oxana Daniel OD Consulting Physician Optometry 12/27/23 documented as of this encounter
--- OUTSIDE RECORDS SUMMARY | 2024-10-04 11:42 | XMS_ITS | Encounter Summary ---
Author Organization [facility] Address [address] [place] [address] Phone Care Team Providers Care State Pilot Name Role Phone Blade Schaefer MD Primary Care Provider [phone] Amor Graham MD Unavailable [phone] Catia Martinez PAC Unavailable [phone] Liban Mary MD Unavailable [phone] Reason for Visit * Reason Comments Medication Refill Encounter Details Date Type Department Care Team (Late st Contact Info) Description 12/30/2022 Refill [facility] - Primary Care - [place] [address] [place] [address] Blade Schaefer MD [address] [place] [address] Medication Refill Social History Tobacco [...] Dept 12/14/22 Office Visit Blade Schaefer MD [facility] 06/15/22 Office Visit Blade Schaefer MD [facility] Showing recent visits within past 365 [...] Dept 12/14/22 Office Visit Blade Schaefer MD [facility] 06/15/22 Office Visit Blade Schaefer MD [facility] Showing recent visits within past 365 [...] 10/24/2024 11:15 AM CDT Office Visit [facility] [place] [address] [place] [address] Blade Schaefer MD [address] [place] [address] 12/28/2024 11:00 AM CDT Office Visit [facility] [place] [address] [place] [address] Blade Schaefer MD [address] [place], [place] [id number] documented as of this encounter Visit Diagnoses Not on filedocumented in this encounter Additional Health Concerns Assessment Noted Time PHQ-9 Depression Total Score: 0 06/11/19 21 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 documented as of this encounter Care Teams State Pilot Relationship Specialty Start Date End Date Blade Schaefer MD [address] [place] [address] PCP - General Internal Medicine 04/16/17 Amor Graham MD [address] [facility] [place] [address] Consulting Physician Cardiovascular Disease - Cardiology 04/16/17 Catia Martinez PAC [address] [facility] [place] [address] Physician Oil Well Cable Tool Operator Orthopaedic Surgery 12/09/20 Liban Mary MD [address] [place] [address] Consulting Physician Ophthalmology 06/11/21 12/26/23 Mary Prieto MD Consulting Physician Ophthalmology 05/06/17 Oxana Daniel OD Consulting Physician Optometry 12/27/23 documented as of this encounter
[2024-10-04 14:24] LABS: Anion Gap 6 mmol/L (4-12); Blood Urea Nitrogen 31 mg/dL (9-20); Calcium 8.7 mg/dL (8.4-10.2); Carbon Dioxide 25 mmol/L (22-30); Chloride 109 mmol/L (98-107); Estimated Glomerular Filt Rate 47; Glucose 117 mg/dL (65-110); Osmolality Calculated 297 mOsm/kg (285-295); Potassium 5.1 mmol/L (3.4-5.0); Sodium 140 mmol/L (137-145)
== END 2024-10-04 10:44 | disposition home or self-care (01) ==
LOC: CHSLAB 10:48
PROVIDERS: PCP Internal Medicine; Visit Provider Internal Medicine
DX: R79.89 Other specified abnormal findings of blood chemistry (principal); I48.11 Longstanding persistent atrial fibrillation
CPT/HCPCS: 36415; 80048; 85610